=== PATIENT | female | born 1960 | race African-American/Black ===

== ENCOUNTER 2017-12-03 18:35 | Inpatient (IN) | payer MEDICARE, MEDICAID ==
--- NOTE | 2017-12-03 20:50 | RADIOLOGY REPORT (SQ) ---
EXAM DESCRIPTION: CHEST SINGLE VIEW COMPLETED DATE/TIME: 12/03/2017 8:38 pm REASON FOR STUDY: cough COMPARISON: 11/25/2013 EXAM PARAMETERS: NUMBER OF VIEWS: One view. TECHNIQUE: Single frontal radiographic view of the chest acquired. RADIATION DOSE: NA LIMITATIONS: None. FINDINGS: LUNGS AND PLEURA: There is ill-defined opacification in the medial right base. MEDIASTINUM AND HILAR STRUCTURES: No masses. Contour normal. HEART AND VASCULAR STRUCTURES: Heart normal in size. Normal vasculature. BONES: No acute findings. HARDWARE: None in the chest. OTHER: No other significant finding. IMPRESSION: Right lower lobe pneumonia. TECHNICAL DOCUMENTATION: JOB ID: [id number] [employer]- All Rights Reserved Reading location - IP/workstation name: [email or web address]
[2017-12-03 23:13] LABS: ABSOLUTE BASOPHILS # (AUTO) 0.1 10^3/uL (0.0-0.2); ABSOLUTE EOSINOPHILS # (AUTO) 0.2 10^3/uL (0.0-0.6); ABSOLUTE LYMPHOCYTES (AUTO) 2.5 10^3/uL (0.5-4.7); ABSOLUTE MONOCYTES (AUTO) 0.7 10^3/uL (0.1-1.4); ABSOLUTE NEUT (AUTO) 7.8 10^3/uL (1.7-8.2); BASOPHILS % (AUTO) 0.9 % (0-2); EOSINOPHILS % (AUTO) 2.2 % (0-6); HEMATOCRIT 35.3 % (36.0-47.0); HEMOGLOBIN 11.8 g/dL (12.0-15.5); MEAN CORPUSCULAR HEMOGLOBIN 30.1 pg (27.0-33.4); MEAN CORPUSCULAR HGB CONC 33.5 g/dL (32.0-36.0); MEAN CORPUSCULAR VOLUME 90 fl (80-97); MONOCYTES % (AUTO) 5.8 % (3-13); PLATELET COUNT 365 10^3/uL (150-450); RED BLOOD COUNT 3.93 10^6/uL (3.72-5.28); RED CELL DISTRIBUTION WIDTH 12.4 % (11.5-14.0); SEGMENTED NEUTROPHILS % (AUTO) 69.1 % (42-78); TOTAL CELLS COUNTED % (AUTO) 100 %; WHITE BLOOD COUNT 11.2 10^3/uL (4.0-10.5)
[2017-12-03] MEDS ORDERED: CEFTRIAXONE INJ 1000 MG VIAL IV ONE (23:14)
[2017-12-03] MEDS ORDERED: AZITHROMYCIN INJ 500 MG VIAL IV ONE (23:14)
[2017-12-03 23:36] LABS: ANION GAP 7 (5-19); BLOOD UREA NITROGEN 10 mg/dL (7-20); CALCIUM 9.1 mg/dL (8.4-10.2); CARBON DIOXIDE 28 mmol/L (22-30); CHLORIDE 102 mmol/L (98-107); GLUCOSE 249 mg/dL (75-110); POTASSIUM 3.9 mmol/L (3.6-5.0); SODIUM 137.3 mmol/L (137-145)
--- NOTE | 2017-12-03 23:54 | ER Document Report ---
ED General - General Chief Complaint: Painful Cough Stated Complaint: COUGH Time Seen by Provider: 12/03/17 22:11 TRAVEL OUTSIDE OF THE [place] IN LAST 30 DAYS: No - HPI Notes: Patient is a 57-year-old female that presents to the emergency department for chief complaint of cough. Patient presents the emergency room for cough and malaise for the last 2 weeks. She was started on amoxicillin on 11/27 by her primary care provider and states her symptoms have been getting worse. She reports coughing with no sputum production. She denies fevers or chills but generally feels ill. She has been using home albuterol inhaler with temporary symptomatic relief. She denies any nausea, vomiting, abdominal pain, numbness, weakness, chest pain, and headaches. Past Medical History: Hypertension, diabetes, asthma Past Surgical History: Neck surgery, back surgery, partial hysterectomy Social History: Denies drug alcohol and tobacco Family History: Reviewed and noncontributory for presenting illness Allergies: Reviewed, see documented allergy list. REVIEW OF SYSTEMS: CONSTITUTIONAL : No fever No chills No diaphoresis EENT: No vision changes No congestion No sore throat CARDIOVASCULAR: No chest pain No palpitations No shortness of breath RESPIRATORY: shortness of breath cough No difficulty breathing GASTROINTESTINAL: No abdominal pain No nausea No vomiting No diarrhea GENITOURINARY: No dysuria No hematuria No difficulty urinating MUSCULOSKELETAL: No back pain No leg pain No arm pain SKIN: No rashes No lesions LYMPHATIC: No swollen, enlarged glands. NEUROLOGICAL: No lightheadedness No headache No weakness No paresthesias PSYCHIATRIC: No anxiety No depression PHYSICAL EXAMINATION: Vital signs reviewed, nursing noted reviewed. GENERAL: Well-appearing, well-nourished and in no acute distress. HEAD: Atraumatic, normocephalic. EYES: Eyes appear normal, extraocular movements intact, sclera anicteric, conjunctiva are normal. ENT: nares patent, oropharynx clear without exudates. Moist mucous membranes. NECK: Normal range of motion, supple without lymphadenopathy LUNGS: Breath sounds mildly wheezy to auscultation bilaterally and equal. No accessory muscle use HEART: Tachycardic and regular rhythm without murmurs ABDOMEN: Soft, nontender, normoactive bowel sounds. No rebound, guarding, or rigidity. No masses appreciated. EXTREMITIES: Nontender, good range of motion, no pitting or edema. NEUROLOGICAL: No focal neurological deficits. Moves all extremities spontaneously Motor and sensory grossly intact on exam. PSYCH: Normal mood, normal affect. SKIN: Warm, Dry, normal turgor, no rashes or lesions noted on exposed skin - Related Data Allergies/Adverse Reactions: sulfamethoxazole [From Bactrim] Allergy (Verified 12/03/17 18:36) trimethoprim [From Bactrim] Allergy (Verified 12/03/17 18:36) Past Medical History - Social History Smoking Status: Former Smoker Chew tobacco use (# tins/day): No Frequency of alcohol use: Rare Family History: Other - family members have uri Patient has suicidal ideation: No Patient has homicidal ideation: No - Past Medical History Cardiac Medical History: Reports: Hx Hypertension Pulmonary Medical History: Reports: Hx Asthma, Hx Bronchitis Endocrine Medical History: Reports: Hx Diabetes Mellitus Type 1, Hx Diabetes Mellitus Type 2 Renal/ Medical History: Denies: Hx Peritoneal Dialysis GI Medical History: Reports: Hx Irritable Bowel Past Surgical History: Reports: Hx Abdominal Surgery - hiatal hernia repair, Hx Breast Surgery - benign cyst removed right, Hx Gynecologic Surgery - partial hysterectomy, Hx Orthopedic Surgery - lumbar spine x 2, neck surg 06/13, Hx Umbilical Hernia, Hx Urinary Tract Surgery - bladder tach - Immunizations Hx Diphtheria, Pertussis, Tetanus Vaccination: No Review of Systems - Review of Systems Notes: Dictated Physical Exam - Vital signs Vitals: Temp Pulse Resp BP Pulse Ox 98.1 F 112 H 24 H 179/86 H 99 12/03/17 18:39 12/03/17 18:39 12/03/17 18:39 12/03/17 18:39 12/03/17 18:39 - Notes Notes: Dictated Course - Re-evaluation Re-evalutation: 12/03/17 23:53 Vital signs reviewed, nursing notes reviewed. Patient afebrile. She is tachycardic and tachypneic and meeting Sirs criteria. Blood cultures were obtained. Patient given IV antibiotics. Chest x-ray showed pneumonia and she is meeting sepsis criteria. Lactate is normal and she has a stable blood pressure therefore is she is not in severe sepsis or septic shock. She is failing outpatient management and requires admission for IV antibiotics. Case discussed with admitting physician. Patient in agreement with the plan. She was feeling improved at time of admission. Chest X-Ray 12/03/17 00:00 IMPRESSION: Right lower lobe pneumonia. Laboratory 12/03/17 12/03/17 12/03/17 22:54 22:54 22:54 WBC 11.2 H RBC 3.93 Hgb 11.8 L Hct 35.3 L MCV 90 MCH 30.1 MCHC 33.5 RDW 12.4 Plt Count 365 Seg Neutrophils % 69.1 Lymphocytes % 22.0 Monocytes % 5.8 Eosinophils % 2.2 Basophils % 0.9 Absolute Neutrophils 7.8 Absolute Lymphocytes 2.5 Absolute Monocytes 0.7 Absolute Eosinophils 0.2 Absolute Basophils 0.1 Sodium 137.3 Potassium 3.9 Chloride 102 Carbon Dioxide 28 Anion Gap 7 BUN 10 Creatinine 0.69 Est GFR ( Amer) > 60 Est GFR (Non-Af Amer) > 60 Glucose 249 H Lactic Acid 1.2 Calcium 9.1 12/04/17 00:06 - Vital Signs Vital signs: Temp Pulse Resp BP Pulse Ox 98.1 F 112 H 24 H 179/86 H 99 12/03/17 18:39 12/03/17 18:39 12/03/17 18:39 12/03/17 18:39 12/03/17 18:39 - Laboratory Result Diagrams: 12/03/17 22:54 12/03/17 22:54 Laboratory results interpreted by me: 12/03/17 12/03/17 22:54 22:54 WBC 11.2 H Hgb 11.8 L Hct 35.3 L Glucose 249 H Discharge - Discharge Clinical Impression: Pneumonia Qualifiers: Pneumonia type: due to unspecified organism Laterality: right Lung location: lower lobe of lung Qualified Code(s): J18.1 - Lobar pneumonia, unspecified organism Sepsis Qualifiers: Sepsis type: sepsis due to unspecified organism Qualified Code(s): A41.9 - Sepsis, unspecified organism Condition: Stable Disposition: ADMITTED INPATIENT Admitting Provider: [facility] Admitted: Telemetry Referrals: OSVALDO MONZON MD [Primary Care Provider] - Follow up as needed
[2017-12-04] MEDS ORDERED: NORMAL SALINE 1000 ML 1,000 ML IV ONE (00:03)
[2017-12-04] MEDS ORDERED: IPRATROPIUM/ALBUTEROL 0.5-2.5 MG/3 ML AMPUL NEB ONE (00:06)
[2017-12-04] MEDS ORDERED: ACETAMINOPHEN 325 MG TABLET PO ONE (00:58)
[2017-12-04] MEDS ORDERED: DEXTROSE 50%-WATER 25 GM/50 ML DISP.SYRIN IV PRN ×2 (07:39)
[2017-12-04] MEDS ORDERED: GLUCAGON,HUMAN RECOMB 1 MG INJ IM PRN (07:39)
[2017-12-04] MEDS ORDERED: DEXTROSE 40% GEL 15 GM TUBE PO PRN ×2 (07:39)
[2017-12-04] MEDS ORDERED: CEFTRIAXONE 1 GM/D5W RTU 50 ML IV SCH (08:00)
[2017-12-04] MEDS: NORMAL SALINE 1000 ML 1,000 ML IV PRN ×2 (08:03→22:45)
[2017-12-04] MEDS: INSULIN REG, HUMAN 100 UNIT/ML 3 ML VIAL (PYX) SUBCUT PRN ×3 (08:03→21:45)
[2017-12-04] MEDS: AZITHROMYCIN 500 MG in DEXTROSE 5%-WATER 250 ML IV SCH (10:00)
[2017-12-04] MEDS: ENOXAPARIN SODIUM INJ 40 MG/0.4 ML DISP.SYRIN SUBCUT SCH (10:01)
[2017-12-04 10:57] LABS: TROPONIN I < 0.012 ng/mL
[2017-12-04] MEDS: ACETAMINOPHEN 325 MG TABLET PO PRN ×2 (13:33→22:46)
--- NOTE | 2017-12-04 21:02 | PDOC H&P ---
History of Present Illness Admission Date/PCP: 12/04/17 00:17 OSVALDO MONZON MD History of Present Illness: ADELITA BOTELLO is a 57 year old female, she has type 2 diabetes mellitus, I saw her in the office about 2 weeks ago when she came for evaluation of sinus symptoms with cough, malaise facial pain, postnasal drip, she was prescribed amoxicillin with antihistamine. She came to the emergency room for evaluation of continuing cough pleurisy, in the emergency room a chest x-ray was done, it demonstrated opacification in the medial right base consistent with right lower lobe pneumonia. Hospital admission was recommended by the ED doctor for further management of this patient. Past Medical History Cardiac Medical History: Reports: Hypertension Pulmonary Medical History: Reports: Asthma, Bronchitis Endocrine Medical History: Reports: Diabetes Mellitus Type 2 Past Surgical History Past Surgical History: Reports: Orthopedic Surgery - lumbar spine x 2, neck surg 06/13 Social History Smoking Status: Never Smoker Frequency of Alcohol Use: None Hx Recreational Drug Use: No Hx Prescription Drug Abuse: No - Advance Directive Resuscitation Status: Full Code Family History Family History: Other - family members have uri Parental Family History Reviewed: Yes Children Family History Reviewed: Yes Sibling(s) Family History Reviewed.: Yes Medication/Allergy Home Medications: Albuterol Sulfate [Ventolin HFA MDI 18 GM] 2 puff IH Q6HP PRN 12/04/17 Chlorpheniramine Maleate [Chlor-Trimeton 4 mg Tablet] 4 mg PO Q6HP PRN 12/04/17 Exenatide Microspheres [Bydureon Pen] 2 mg SQ FR@1000 12/04/17 Fluticasone Propionate [Flonase Nasal Jadwin 50 Mcg/Jadwin 16 gm] 1 spray NASL DAILYP PRN 12/04/17 Ibuprofen [Motrin 800 mg Tablet] 800 mg PO Q8HP PRN 12/04/17 Insulin Degludec [Tresiba Flextouch U-100] 40 units SQ DAILY 12/04/17 Lisinopril/Hydrochlorothiazide [Lisinopril-Hctz 20-25 mg Tab] 1 tab PO DAILY 10/14 Allergies/Adverse Reactions: sulfamethoxazole [From Bactrim] Allergy (Verified 12/03/17 18:36) trimethoprim [From Bactrim] Allergy (Verified 12/03/17 18:36) Review of Systems Constitutional: ABSENT: chills, fever(s), headache(s), weight gain, weight loss Eyes: ABSENT: visual disturbances Ears: ABSENT: hearing changes Cardiovascular: ABSENT: chest pain, dyspnea on exertion, edema, orthropnea, palpitations Respiratory: PRESENT: cough. ABSENT: hemoptysis Gastrointestinal: ABSENT: abdominal pain, constipation, diarrhea, hematemesis, hematochezia, nausea, vomiting Genitourinary: ABSENT: dysuria, hematuria Musculoskeletal: ABSENT: joint swelling Integumentary: ABSENT: rash, wounds Neurological: ABSENT: abnormal gait, abnormal speech, confusion, dizziness, focal weakness, syncope Psychiatric: ABSENT: anxiety, depression, homidical ideation, suicidal ideation Endocrine: ABSENT: cold intolerance, heat intolerance, menstrual abnormalities, polydipsia, polyuria Hematologic/Lymphatic: ABSENT: easy bleeding, easy bruising, lymphadenopathy Physical Exam Vital Signs: Temp Pulse Resp BP Pulse Ox 98.7 F 103 H 24 H 136/63 H 96 12/04/17 19:13 12/04/17 19:13 12/04/17 19:13 12/04/17 19:13 12/04/17 19:13 Intake & Output 12/03/17 12/04/17 12/05/17 06:59 06:59 06:59 Intake Total 1000 250 Balance 1000 250 General appearance: PRESENT: no acute distress, well-developed, well-nourished Head exam: PRESENT: atraumatic, normocephalic Eye exam: PRESENT: PERRLA Ear exam: PRESENT: normal external ear exam Mouth exam: PRESENT: moist, tongue midline Neck exam: PRESENT: full ROM Respiratory exam: PRESENT: rales Cardiovascular exam: PRESENT: RRR, +S1, +S2 Vascular exam: PRESENT: normal capillary refill GI/Abdominal exam: PRESENT: normal bowel sounds, soft Rectal exam: PRESENT: deferred Neurological exam: PRESENT: alert, awake, oriented to person, oriented to place , oriented to time, oriented to situation, CN II-XII grossly intact Psychiatric exam: PRESENT: appropriate affect, normal mood Skin exam: PRESENT: dry, intact, warm Results Laboratory Results: 12/04/17 12/04/17 09:50 09:50 Creatine Kinase 193 H CK-MB (CK-2) 0.70 Troponin I < 0.012 Impressions: Chest X-Ray 12/03/17 00:00 IMPRESSION: Right lower lobe pneumonia. Assessment & Plan - Diagnosis (1) Right lower lobe pneumonia Qualifiers: Pneumonia type: due to unspecified organism Qualified Code(s): J18.1 - Lobar pneumonia, unspecified organism Is this a current diagnosis for this admission?: Yes Plan: Patient is admitted for the management of pneumonia, she will be treated with antibiotic to cover community-acquired pathogens (2) Diabetes mellitus type 2 in obese Is this a current diagnosis for this admission?: Yes
[2017-12-04 21:58] LABS: APPEARANCE,URINE SLIGHTLY-CLOUDY; BILIRUBIN,URINE NEGATIVE (NEGATIVE); COLOR,URINE YELLOW; GLUCOSE, URINE >=500 mg/dL (NEGATIVE); KETONES,URINE TRACE mg/dL (NEGATIVE); LEUKOCYTE ESTERASE,URINE NEGATIVE (NEGATIVE); NITRITE,URINE NEGATIVE (NEGATIVE); PROTEIN,URINE NEGATIVE (NEGATIVE); URINE SPECIFIC GRAVITY 1.016; UROBILINOGEN,URINE NEGATIVE mg/dL (<2.0)
[2017-12-04] MEDS: CEFTRIAXONE SODIUM 1,000 MG in NORMAL SALINE 50 ML IV SCH (22:44)
[2017-12-05 05:21] LABS: ABSOLUTE BASOPHILS # (AUTO) 0.1 10^3/uL (0.0-0.2); ABSOLUTE EOSINOPHILS # (AUTO) 0.2 10^3/uL (0.0-0.6); ABSOLUTE MONOCYTES (AUTO) 0.7 10^3/uL (0.1-1.4); ABSOLUTE NEUT (AUTO) 5.6 10^3/uL (1.7-8.2); BASOPHILS % (AUTO) 0.8 % (0-2); EOSINOPHILS % (AUTO) 2.9 % (0-6); HEMATOCRIT 31.4 % (36.0-47.0); HEMOGLOBIN 10.6 g/dL (12.0-15.5); LYMPHOCYTES % (AUTO) 23.5 % (13-45); MEAN CORPUSCULAR HEMOGLOBIN 30.4 pg (27.0-33.4); MEAN CORPUSCULAR HGB CONC 33.7 g/dL (32.0-36.0); MEAN CORPUSCULAR VOLUME 90 fl (80-97); MONOCYTES % (AUTO) 7.8 % (3-13); PLATELET COUNT 319 10^3/uL (150-450); RED BLOOD COUNT 3.48 10^6/uL (3.72-5.28); RED CELL DISTRIBUTION WIDTH 12.1 % (11.5-14.0); TOTAL CELLS COUNTED % (AUTO) 100 %; WHITE BLOOD COUNT 8.6 10^3/uL (4.0-10.5)
[2017-12-05 05:47] LABS: ALANINE AMINOTRANSFERASE 27 U/L (9-52); ALKALINE PHOSPHATASE 70 U/L (38-126); ANION GAP 8 (5-19); ASPARTATE AMINO TRANSFERASE 12 U/L (14-36); BILIRUBIN,DIRECT 0.2 mg/dL (0.0-0.4); BILIRUBIN,TOTAL 0.5 mg/dL (0.2-1.3); BLOOD UREA NITROGEN 8 mg/dL (7-20); CALCIUM 8.7 mg/dL (8.4-10.2); CARBON DIOXIDE 26 mmol/L (22-30); CHLORIDE 106 mmol/L (98-107); GLUCOSE 201 mg/dL (75-110); POTASSIUM 3.9 mmol/L (3.6-5.0); SODIUM 139.9 mmol/L (137-145); TOTAL PROTEIN 6.1 g/dL (6.3-8.2)
[2017-12-05] MEDS: INSULIN REG, HUMAN 100 UNIT/ML 3 ML VIAL (PYX) SUBCUT PRN ×3 (09:27→21:53)
[2017-12-05] MEDS: AZITHROMYCIN 500 MG in DEXTROSE 5%-WATER 250 ML IV SCH (10:03)
[2017-12-05] MEDS: ENOXAPARIN SODIUM INJ 40 MG/0.4 ML DISP.SYRIN SUBCUT SCH (10:12)
[2017-12-05] MEDS: BUTALB/ACETAMINOPHEN/CAFFEINE 1 TAB EACH PO PRN ×2 (12:30→21:38)
[2017-12-05] MEDS ORDERED: ALBUTEROL SULFATE HFA (90 MCG/PUFF) 8 GM MDI (1 MDI/ER DISP) IH PRN (12:44)
[2017-12-05] MEDS ORDERED: CHLORPHENIRAMINE MALEATE 4 MG TABLET PO PRN (12:44)
[2017-12-05] MEDS ORDERED: (PENDING PHARMACY ID) (Lisinopril/Hydrochlorothiazide [Lisinopril-Hctz 20-25 Mg Tab] 1 TAB PO SCH (12:45)
[2017-12-05] MEDS ORDERED: INSULIN DEGLUDEC 40 UNIT SQ SCH ×2 (12:45→15:15)
--- NOTE | 2017-12-05 13:05 | PDOC PROGRESS REPORT ---
Subjective Progress Note for:: 12/05/17 Subjective:: Patient was seen by the bedside, she was admitted for the management of right lower lobe pneumonia, presently on IV antibiotic she has lymphedema on the left upper arm, this was a complication from cervical laminectomy that was done years ago, she uses sleeve compression stocking Reason For Visit: PNEUMONIA,T2DM Physical Exam Vital Signs: Temp Pulse Resp BP Pulse Ox 98.7 F 100 18 140/82 H 92 12/05/17 11:08 12/05/17 11:08 12/05/17 11:08 12/05/17 11:08 12/05/17 11:08 Intake & Output 12/04/17 12/05/17 12/06/17 06:59 06:59 06:59 Intake Total 1000 1300 250 Output Total 525 Balance 1000 775 250 Weight 92.4 kg General appearance: PRESENT: no acute distress Eye exam: PRESENT: PERRLA Respiratory exam: PRESENT: rales Cardiovascular exam: PRESENT: +S1, +S2 GI/Abdominal exam: PRESENT: soft Neurological exam: PRESENT: alert Results Laboratory Results: 12/05/17 04:27 12/05/17 04:27 12/04/17 12/05/17 12/05/17 21:35 04:27 04:27 WBC 8.6 RBC 3.48 L Hgb 10.6 L Hct 31.4 L MCV 90 MCH 30.4 MCHC 33.7 RDW 12.1 Plt Count 319 Seg Neutrophils % 65.0 Lymphocytes % 23.5 Monocytes % 7.8 Eosinophils % 2.9 Basophils % 0.8 Absolute Neutrophils 5.6 Absolute Lymphocytes 2.0 Absolute Monocytes 0.7 Absolute Eosinophils 0.2 Absolute Basophils 0.1 Sodium 139.9 Potassium 3.9 Chloride 106 Carbon Dioxide 26 Anion Gap 8 BUN 8 Creatinine 0.67 Est GFR ( Amer) > 60 Est GFR (Non-Af Amer) > 60 Glucose 201 H Calcium 8.7 Total Bilirubin 0.5 AST 12 L ALT 27 Alkaline Phosphatase 70 Total Protein 6.1 L Albumin 3.0 L Urine Color YELLOW Urine Appearance SLIGHTLY-CLOUDY Urine pH 6.0 Ur Specific [place] 1.016 Urine Protein NEGATIVE Urine Glucose (UA) >=500 H Urine Ketones TRACE H Urine Blood NEGATIVE Urine Nitrite NEGATIVE Ur Leukocyte Esterase NEGATIVE Urine WBC (Auto) 0 Urine RBC (Auto) 1 12/04/17 12/04/17 09:50 09:50 Creatine Kinase 193 H CK-MB (CK-2) 0.70 Troponin I < 0.012 Impressions: Chest X-Ray 12/03/17 00:00 IMPRESSION: Right lower lobe pneumonia. Assessment & Plan - Diagnosis (1) Right lower lobe pneumonia Qualifiers: Pneumonia type: due to unspecified organism Qualified Code(s): J18.1 - Lobar pneumonia, unspecified organism Is this a current diagnosis for this admission?: Yes Plan: Continue IV antibiotic, patient is responding to treatment (2) Diabetes mellitus type 2 in obese Is this a current diagnosis for this admission?: Yes (3) Lymphedema Is this a current diagnosis for this admission?: Yes
[2017-12-05] MEDS ORDERED: ALBUTEROL SULFATE HFA (90 MCG/PUFF) 200 PUFF/8.5 GM MDI IH PRN (15:00)
[2017-12-05] MEDS ORDERED: (PENDING PHARMACY ID) (Exenatide Microspheres [Bydureon Pen] 2 MG) SQ SCH (15:15)
[2017-12-05] MEDS: CEFTRIAXONE SODIUM 1,000 MG in NORMAL SALINE 50 ML IV SCH (21:38)
[2017-12-06] MEDS: NORMAL SALINE 1000 ML 1,000 ML IV PRN (01:13)
[2017-12-06] MEDS: BUTALB/ACETAMINOPHEN/CAFFEINE 1 TAB EACH PO PRN ×2 (03:24→11:01)
[2017-12-06 04:34] LABS: ABSOLUTE BASOPHILS # (AUTO) 0.1 10^3/uL (0.0-0.2); ABSOLUTE EOSINOPHILS # (AUTO) 0.2 10^3/uL (0.0-0.6); ABSOLUTE LYMPHOCYTES (AUTO) 1.9 10^3/uL (0.5-4.7); ABSOLUTE MONOCYTES (AUTO) 0.8 10^3/uL (0.1-1.4); ABSOLUTE NEUT (AUTO) 6.6 10^3/uL (1.7-8.2); BASOPHILS % (AUTO) 0.6 % (0-2); EOSINOPHILS % (AUTO) 2.5 % (0-6); HEMATOCRIT 30.1 % (36.0-47.0); HEMOGLOBIN 10.4 g/dL (12.0-15.5); LYMPHOCYTES % (AUTO) 20.2 % (13-45); MEAN CORPUSCULAR HEMOGLOBIN 30.9 pg (27.0-33.4); MEAN CORPUSCULAR HGB CONC 34.5 g/dL (32.0-36.0); MEAN CORPUSCULAR VOLUME 90 fl (80-97); MONOCYTES % (AUTO) 8.1 % (3-13); PLATELET COUNT 315 10^3/uL (150-450); RED BLOOD COUNT 3.36 10^6/uL (3.72-5.28); RED CELL DISTRIBUTION WIDTH 12.3 % (11.5-14.0); SEGMENTED NEUTROPHILS % (AUTO) 68.6 % (42-78); TOTAL CELLS COUNTED % (AUTO) 100 %; WHITE BLOOD COUNT 9.6 10^3/uL (4.0-10.5)
[2017-12-06 04:56] LABS: ALANINE AMINOTRANSFERASE 24 U/L (9-52); ALBUMIN 3.1 g/dL (3.5-5.0); ALKALINE PHOSPHATASE 72 U/L (38-126); ANION GAP 7 (5-19); ASPARTATE AMINO TRANSFERASE 11 U/L (14-36); BILIRUBIN,DIRECT 0.2 mg/dL (0.0-0.4); BILIRUBIN,TOTAL 0.4 mg/dL (0.2-1.3); BLOOD UREA NITROGEN 6 mg/dL (7-20); CALCIUM 8.8 mg/dL (8.4-10.2); CARBON DIOXIDE 27 mmol/L (22-30); CHLORIDE 106 mmol/L (98-107); GLUCOSE 172 mg/dL (75-110); POTASSIUM 3.9 mmol/L (3.6-5.0); SODIUM 139.9 mmol/L (137-145); TOTAL PROTEIN 6.1 g/dL (6.3-8.2)
[2017-12-06] MEDS: INSULIN REG, HUMAN 100 UNIT/ML 3 ML VIAL (PYX) SUBCUT PRN ×3 (08:44→21:33)
[2017-12-06] MEDS: LISINOPRIL 10 MG TABLET PO SCH (09:51)
[2017-12-06] MEDS: HYDROCHLOROTHIAZIDE 25 MG TABLET PO SCH (09:51)
[2017-12-06] MEDS: AZITHROMYCIN 500 MG in DEXTROSE 5%-WATER 250 ML IV SCH (10:01)
[2017-12-06] MEDS: ENOXAPARIN SODIUM INJ 40 MG/0.4 ML DISP.SYRIN SUBCUT SCH (10:02)
--- NOTE | 2017-12-06 13:51 | PDOC PROGRESS REPORT ---
Subjective Progress Note for:: 12/06/17 Subjective:: She was seen by the bedside, complaint of constipation, the nurse stated that the IV azithromycin causes discomfort when administered, this would be changed to p.o. Reason For Visit: PNEUMONIA,T2DM Physical Exam Vital Signs: Temp Pulse Resp BP Pulse Ox 98.4 F 100 16 125/73 96 12/06/17 11:32 12/06/17 11:32 12/06/17 11:32 12/06/17 11:32 12/06/17 11:32 Intake & Output 12/05/17 12/06/17 12/07/17 06:59 06:59 06:59 Intake Total 1300 2275 250 Output Total 525 300 Balance 775 1975 250 Weight 92.4 kg 89.7 kg General appearance: PRESENT: no acute distress Eye exam: PRESENT: PERRLA Respiratory exam: PRESENT: clear to auscultation soraya Cardiovascular exam: PRESENT: +S1, +S2 Neurological exam: PRESENT: alert Results Laboratory Results: 12/06/17 04:08 12/06/17 04:08 12/06/17 12/06/17 04:08 04:08 WBC 9.6 RBC 3.36 L Hgb 10.4 L Hct 30.1 L MCV 90 MCH 30.9 MCHC 34.5 RDW 12.3 Plt Count 315 Seg Neutrophils % 68.6 Lymphocytes % 20.2 Monocytes % 8.1 Eosinophils % 2.5 Basophils % 0.6 Absolute Neutrophils 6.6 Absolute Lymphocytes 1.9 Absolute Monocytes 0.8 Absolute Eosinophils 0.2 Absolute Basophils 0.1 Sodium 139.9 Potassium 3.9 Chloride 106 Carbon Dioxide 27 Anion Gap 7 BUN 6 L Creatinine 0.67 Est GFR ( Amer) > 60 Est GFR (Non-Af Amer) > 60 Glucose 172 H Calcium 8.8 Total Bilirubin 0.4 AST 11 L ALT 24 Alkaline Phosphatase 72 Total Protein 6.1 L Albumin 3.1 L 12/04/17 12/04/17 09:50 09:50 Creatine Kinase 193 H CK-MB (CK-2) 0.70 Troponin I < 0.012 Impressions: Chest X-Ray 12/03/17 00:00 IMPRESSION: Right lower lobe pneumonia. Assessment & Plan - Diagnosis (1) Right lower lobe pneumonia Qualifiers: Pneumonia type: due to unspecified organism Qualified Code(s): J18.1 - Lobar pneumonia, unspecified organism Is this a current diagnosis for this admission?: Yes Plan: Discontinue IV azithromycin start p.o. (2) Diabetes mellitus type 2 in obese Is this a current diagnosis for this admission?: Yes (3) Lymphedema Is this a current diagnosis for this admission?: Yes (4) Constipation Qualifiers: Constipation type: other constipation type Qualified Code(s): K59.09 - Other constipation Is this a current diagnosis for this admission?: Yes Plan: Give Dulcolax 20 mg p.o. 1 dose
--- NOTE | 2017-12-06 13:58 | PDOC DISCHARGE SUMMARY ---
General - Admit/Disc Date/PCP Admission Date/Primary Care Provider: 12/04/17 00:17 OSVALDO MONZON MD Discharge Date: 12/07/17 - Discharge Diagnosis (1) Right lower lobe pneumonia Is this a current diagnosis for this admission?: Yes (2) Diabetes mellitus type 2 in obese Is this a current diagnosis for this admission?: Yes (3) Lymphedema Is this a current diagnosis for this admission?: Yes (4) Constipation Is this a current diagnosis for this admission?: Yes - Additional Information Resuscitation Status: Full Code Prescriptions: Azithromycin [Zithromax 250 mg Tablet] 500 mg PO DAILY #10 tablet Sitagliptin Phos/Metformin HCl [Janumet Xr 100-1,000 mg Tablet] 1 each PO DAILY #90 tbmp.24hr Home Medications: Albuterol Sulfate [Ventolin HFA MDI 18 GM] 2 puff IH Q6HP PRN 12/04/17 Chlorpheniramine Maleate [Chlor-Trimeton 4 mg Tablet] 4 mg PO Q6HP PRN 12/04/17 Exenatide Microspheres [Bydureon Pen] 2 mg SQ FR@1000 12/04/17 Insulin Degludec [Tresiba Flextouch U-100] 40 units SQ DAILY 12/04/17 Lisinopril/Hydrochlorothiazide [Lisinopril-Hctz 20-25 mg Tab] 1 tab PO DAILY 10/14 Azithromycin [Zithromax 250 mg Tablet] 500 mg PO DAILY #10 tablet 12/06/17 Sitagliptin Phos/Metformin HCl [Janumet Xr 100-1,000 mg Tablet] 1 each PO DAILY #90 tbmp.24hr 12/06/17 History of Present Illness History of Present Illness: ADELITA BOTELLO is a 57 year old female, she has type 2 diabetes mellitus, I saw her in the office about 2 weeks ago when she came for evaluation of sinus symptoms with cough, malaise facial pain, postnasal drip, she was prescribed amoxicillin with antihistamine. She came to the emergency room for evaluation of continuing cough pleurisy, in the emergency room a chest x-ray was done, it demonstrated opacification in the medial right base consistent with right lower lobe pneumonia. Hospital admission was recommended by the ED doctor for further management of this patient. Hospital Course Hospital Course: She was admitted for the management of right lower lobe pneumonia, she was treated with IV antibiotic, azithromycin and Rocephin to cover community- acquired pathogens. She complained of constipation, this was treated with a single dose of Dulcolax 20 mg. The diabetes was not well controlled, presently on tresiba and bydureon, she started on Janumet XR. Physical Exam Vital Signs: Temp Pulse Resp BP Pulse Ox 98.4 F 100 16 125/73 96 12/06/17 11:32 12/06/17 11:32 12/06/17 11:32 12/06/17 11:32 12/06/17 11:32 Intake & Output 12/05/17 12/06/17 12/07/17 06:59 06:59 06:59 Intake Total 1300 2275 250 Output Total 525 300 Balance 775 1975 250 Weight 92.4 kg 89.7 kg General appearance: PRESENT: no acute distress, well-developed, well-nourished Head exam: PRESENT: atraumatic, normocephalic Eye exam: PRESENT: conjunctiva pink, EOMI, PERRLA Ear exam: PRESENT: normal external ear exam Mouth exam: PRESENT: moist, tongue midline Neck exam: PRESENT: full ROM Respiratory exam: PRESENT: clear to auscultation soraya Cardiovascular exam: PRESENT: RRR, +S1, +S2 Pulses: PRESENT: normal dorsalis pedis pul, +2 pedal pulses bilateral Vascular exam: PRESENT: normal capillary refill GI/Abdominal exam: PRESENT: normal bowel sounds, soft Rectal exam: PRESENT: deferred Neurological exam: PRESENT: alert, awake, oriented to person, oriented to place , oriented to time, oriented to situation, CN II-XII grossly intact Psychiatric exam: PRESENT: appropriate affect, normal mood Skin exam: PRESENT: dry, intact, warm Results Laboratory Results: 12/06/17 04:08 12/06/17 04:08 12/06/17 12/06/17 04:08 04:08 WBC 9.6 RBC 3.36 L Hgb 10.4 L Hct 30.1 L MCV 90 MCH 30.9 MCHC 34.5 RDW 12.3 Plt Count 315 Seg Neutrophils % 68.6 Lymphocytes % 20.2 Monocytes % 8.1 Eosinophils % 2.5 Basophils % 0.6 Absolute Neutrophils 6.6 Absolute Lymphocytes 1.9 Absolute Monocytes 0.8 Absolute Eosinophils 0.2 Absolute Basophils 0.1 Sodium 139.9 Potassium 3.9 Chloride 106 Carbon Dioxide 27 Anion Gap 7 BUN 6 L Creatinine 0.67 Est GFR ( Amer) > 60 Est GFR (Non-Af Amer) > 60 Glucose 172 H Calcium 8.8 Total Bilirubin 0.4 AST 11 L ALT 24 Alkaline Phosphatase 72 Total Protein 6.1 L Albumin 3.1 L 12/04/17 12/04/17 09:50 09:50 Creatine Kinase 193 H CK-MB (CK-2) 0.70 Troponin I < 0.012 Impressions: Chest X-Ray 12/03/17 00:00 IMPRESSION: Right lower lobe pneumonia. Qualifiers - * PATIENT BEING DISCHARGED WITH ANY OF THE FOLLOWING DIAGNOSIS: No
[2017-12-06] MEDS ORDERED: AZITHROMYCIN 250 MG TABLET PO SCH (14:00)
[2017-12-06] MEDS ORDERED: BISACODYL 5 MG TABEC PO ONE (16:00)
[2017-12-06] MEDS: CEFTRIAXONE SODIUM 1,000 MG in NORMAL SALINE 50 ML IV SCH (21:11)
[2017-12-07 04:40] LABS: ABSOLUTE BASOPHILS # (AUTO) 0.1 10^3/uL (0.0-0.2); ABSOLUTE EOSINOPHILS # (AUTO) 0.1 10^3/uL (0.0-0.6); ABSOLUTE LYMPHOCYTES (AUTO) 1.7 10^3/uL (0.5-4.7); ABSOLUTE MONOCYTES (AUTO) 0.7 10^3/uL (0.1-1.4); ABSOLUTE NEUT (AUTO) 7.4 10^3/uL (1.7-8.2); BASOPHILS % (AUTO) 0.8 % (0-2); EOSINOPHILS % (AUTO) 1.3 % (0-6); HEMATOCRIT 30.9 % (36.0-47.0); HEMOGLOBIN 10.5 g/dL (12.0-15.5); LYMPHOCYTES % (AUTO) 17.5 % (13-45); MEAN CORPUSCULAR HEMOGLOBIN 30.6 pg (27.0-33.4); MEAN CORPUSCULAR HGB CONC 34.1 g/dL (32.0-36.0); MEAN CORPUSCULAR VOLUME 90 fl (80-97); MONOCYTES % (AUTO) 6.6 % (3-13); PLATELET COUNT 331 10^3/uL (150-450); RED BLOOD COUNT 3.44 10^6/uL (3.72-5.28); RED CELL DISTRIBUTION WIDTH 12.1 % (11.5-14.0); SEGMENTED NEUTROPHILS % (AUTO) 73.8 % (42-78); TOTAL CELLS COUNTED % (AUTO) 100 %
[2017-12-07 05:29] LABS: ALANINE AMINOTRANSFERASE 21 U/L (9-52); ALBUMIN 3.3 g/dL (3.5-5.0); ALKALINE PHOSPHATASE 77 U/L (38-126); ANION GAP 11 (5-19); ASPARTATE AMINO TRANSFERASE 12 U/L (14-36); BILIRUBIN,DIRECT 0.3 mg/dL (0.0-0.4); BILIRUBIN,TOTAL 0.4 mg/dL (0.2-1.3); BLOOD UREA NITROGEN 8 mg/dL (7-20); CALCIUM 9.1 mg/dL (8.4-10.2); CARBON DIOXIDE 25 mmol/L (22-30); CHLORIDE 101 mmol/L (98-107); GLUCOSE 265 mg/dL (75-110); SODIUM 136.6 mmol/L (137-145); TOTAL PROTEIN 6.4 g/dL (6.3-8.2)
[2017-12-07] MEDS: INSULIN REG, HUMAN 100 UNIT/ML 3 ML VIAL (PYX) SUBCUT PRN (08:38)
[2017-12-07] MEDS: HYDROCHLOROTHIAZIDE 25 MG TABLET PO SCH (09:21)
[2017-12-07] MEDS: ENOXAPARIN SODIUM INJ 40 MG/0.4 ML DISP.SYRIN SUBCUT SCH (09:22)
[2017-12-07] MEDS: LISINOPRIL 10 MG TABLET PO SCH (09:22)
[2017-12-07 09:30] VITALS: BP 140/85
[2017-12-07] MEDS ORDERED: AZITHROMYCIN 250 MG TABLET PO SCH (10:00)
[2017-12-11] MEDS ORDERED: (PENDING PHARMACY ID) (Exenatide Microspheres [Bydureon Pen] 2 MG) SQ SCH (10:00)
== END 2017-12-07 09:59 | disposition home or self-care (01) | DRG 194 ==
LOC: ER 18:35 → EH 12-04 00:17 → 3N 12-04 18:25
PROVIDERS: ADMIT Internal Medicine; ATTEND Internal Medicine
DX: J18.9 Pneumonia, unspecified organism (principal); E66.2 Morbid (severe) obesity with alveolar hypoventilation; E11.9 Type 2 diabetes mellitus without complications; I89.0 Lymphedema, not elsewhere classified; K59.00 Constipation, unspecified; K59.09 Other constipation; I10 Essential (primary) hypertension; J45.909 Unspecified asthma, uncomplicated; Z79.4 Long term (current) use of insulin; Z79.51 Long term (current) use of inhaled steroids; Z88.2 Allergy status to sulfonamides; Z88.8 Allergy status to other drugs, medicaments and biological substances; Z87.891 Personal history of nicotine dependence
CPT/HCPCS: 36415; 71045; 80048; 80053; 81001; 82550; 82553; 82962; 83036; 83605; 84484; 85025; 87040; 94640; 96365; 96368; 99284; J0456; J0696; J1650; J1815; J3490; J7030; J7060; J7620

== ENCOUNTER 2017-12-18 15:46 | Inpatient (IN) | payer MEDICARE, MEDICAID ==
[2017-12-18] MEDS ORDERED: NORMAL SALINE 1000 ML 1,000 ML IV PRN (18:21)
[2017-12-18 18:30] LABS: ABSOLUTE BASOPHILS # (AUTO) 0.1 10^3/uL (0.0-0.2); ABSOLUTE EOSINOPHILS # (AUTO) 0.1 10^3/uL (0.0-0.6); ABSOLUTE LYMPHOCYTES (AUTO) 2.3 10^3/uL (0.5-4.7); ABSOLUTE NEUT (AUTO) 12.8 10^3/uL (1.7-8.2); BASOPHILS % (AUTO) 0.7 % (0-2); EOSINOPHILS % (AUTO) 0.8 % (0-6); HEMOGLOBIN 8.8 g/dL (12.0-15.5); LYMPHOCYTES % (AUTO) 14.2 % (13-45); MEAN CORPUSCULAR HEMOGLOBIN 29.8 pg (27.0-33.4); MEAN CORPUSCULAR HGB CONC 33.8 g/dL (32.0-36.0); MEAN CORPUSCULAR VOLUME 88 fl (80-97); MONOCYTES % (AUTO) 6.3 % (3-13); PLATELET COUNT 680 10^3/uL (150-450); RED BLOOD COUNT 2.95 10^6/uL (3.72-5.28); RED CELL DISTRIBUTION WIDTH 12.8 % (11.5-14.0); TOTAL CELLS COUNTED % (AUTO) 100 %; WHITE BLOOD COUNT 16.4 10^3/uL (4.0-10.5)
[2017-12-18 18:50] LABS: ALANINE AMINOTRANSFERASE 28 U/L (9-52); ALBUMIN 3.4 g/dL (3.5-5.0); ALKALINE PHOSPHATASE 163 U/L (38-126); ANION GAP 8 (5-19); ASPARTATE AMINO TRANSFERASE 20 U/L (14-36); BILIRUBIN,DIRECT 0.6 mg/dL (0.0-0.4); BILIRUBIN,TOTAL 0.8 mg/dL (0.2-1.3); BLOOD UREA NITROGEN 9 mg/dL (7-20); CARBON DIOXIDE 28 mmol/L (22-30); CHLORIDE 100 mmol/L (98-107); GLUCOSE 271 mg/dL (75-110); POTASSIUM 4.8 mmol/L (3.6-5.0); SODIUM 136.3 mmol/L (137-145); TOTAL PROTEIN 7.3 g/dL (6.3-8.2)
--- NOTE | 2017-12-18 19:18 | RADIOLOGY REPORT (SQ) ---
EXAM DESCRIPTION: CT CHEST WITHOUT COMPLETED DATE/TIME: 12/18/2017 6:51 pm REASON FOR STUDY: recurrent pneumonia COMPARISON: None. TECHNIQUE: CT scan performed of the chest without intravenous contrast. Images reviewed with lung, soft tissue and bone windows. Reconstructed coronal and sagittal MPR images reviewed. All images st ored on PACS. All CT scanners at this facility use dose modulation, iterative reconstruction, and/or weight based d osing when appropriate to reduce radiation dose to as low as reasonably achievable (ALARA). [facility]: Dose Right [facility]: CareDose [facility]: Dose Right [facility]: Teradose 4D [facility]: [employer] RADIATION DOSE: CT Rad equipment meets quality standard of care and radiation dose reduction techniq ues were employed. CTDIvol: 17.4 mGy. DLP: 663 mGy-cm. mGy. LIMITATIONS: No technical limitations. FINDINGS: LUNGS AND PLEURA: No pneumothorax. Multifocal dense consolidation and nodularity in the r ight lower lobe. No pleural effusions. HILAR AND MEDIASTINAL STRUCTURES: Multiple abnormal nodes. No obvious aneurysm. HEART AND VASCULAR STRUCTURES: No aneurysm. No pericardial effusion. UPPER ABDOMEN: No significant findings. Limited exam. THYROID AND OTHER SOFT TISSUES: No masses. No adenopathy. BONES: No significant finding. HARDWARE: None in the chest. OTHER: No other significant findings. IMPRESSION: Multifocal dense consolidation and nodularity in the right lower lobe. Mediastinal and hilar lymphadenopathy. Consider pulmonary consultation. TECHNICAL DOCUMENTATION: JOB ID: [id number] Quality ID # [id number]: Final reports with documentation of one or more dose reduction techniques (e.g., Au tomated exposure control, adjustment of the mA and/or kV according to patient size, use of iterative reconstruction technique) 2010 [employer]- All Rights Reserved Reading location - IP/workstation name: [email or web address]
[2017-12-18] MEDS ORDERED: DEXTROSE 40% GEL 15 GM TUBE X 2 PO PRN (20:01)
[2017-12-18] MEDS ORDERED: DEXTROSE 40% GEL 15 GM TUBE PO PRN (20:01)
[2017-12-18] MEDS ORDERED: GLUCAGON,HUMAN RECOMB 1 MG INJ IM PRN (20:01)
[2017-12-18] MEDS ORDERED: DEXTROSE 50%-WATER SYRINGE 25 GM/50 ML DOSE IV PRN (20:01)
[2017-12-18] MEDS ORDERED: DEXTROSE 50%-WATER SYRINGE 12.5 GM/25 ML DOSE IV PRN (20:01)
[2017-12-18] MEDS: ACETAMINOPHEN 325 MG TABLET PO PRN (21:08)
[2017-12-18] MEDS: LANSOPRAZOLE 30 MG TAB.RAP.DR PO SCH ×2 (21:08→21:10)
[2017-12-18] MEDS: INSULIN LISPRO 100 UNIT/ML 3 ML VIAL SUBCUT PRN (21:14)
[2017-12-18] MEDS ORDERED: VANCOMYCIN HCL 0 MG in DEXTROSE 5%-WATER 250 ML IV NR (21:30)
[2017-12-18] MEDS: NORMAL SALINE 1000 ML 1,000 ML IV PRN (22:39)
[2017-12-18] MEDS: CEFTRIAXONE SODIUM 1,000 MG in NORMAL SALINE 50 ML IV SCH (22:40)
[2017-12-18] MEDS: LEVOFLOXACIN 750 MG/D5W RTU 750 MG/150 ML RTUPB IV SCH (22:41)
[2017-12-18] MEDS: VANCOMYCIN HCL 1,000 MG in DEXTROSE 5%-WATER 250 ML IV SCH (22:41)
[2017-12-19] MEDS: LANSOPRAZOLE 30 MG TAB.RAP.DR PO SCH (05:24)
[2017-12-19] MEDS: INSULIN LISPRO 100 UNIT/ML 3 ML VIAL SUBCUT PRN ×3 (09:47→21:49)
[2017-12-19] MEDS: BENZONATATE 100 MG CAPSULE PO PRN ×2 (09:47→17:31)
[2017-12-19] MEDS: VANCOMYCIN HCL 1,000 MG in DEXTROSE 5%-WATER 250 ML IV SCH ×2 (09:48→21:42)
[2017-12-19 14:49] LABS: ABSOLUTE BASOPHILS # (AUTO) 0.1 10^3/uL (0.0-0.2); ABSOLUTE EOSINOPHILS # (AUTO) 0.2 10^3/uL (0.0-0.6); ABSOLUTE LYMPHOCYTES (AUTO) 2.4 10^3/uL (0.5-4.7); ABSOLUTE MONOCYTES (AUTO) 1.1 10^3/uL (0.1-1.4); ABSOLUTE NEUT (AUTO) 11.4 10^3/uL (1.7-8.2); BASOPHILS % (AUTO) 0.3 % (0-2); EOSINOPHILS % (AUTO) 1.3 % (0-6); HEMOGLOBIN 8.5 g/dL (12.0-15.5); LYMPHOCYTES % (AUTO) 15.8 % (13-45); MEAN CORPUSCULAR HEMOGLOBIN 30.1 pg (27.0-33.4); MEAN CORPUSCULAR HGB CONC 34.2 g/dL (32.0-36.0); MEAN CORPUSCULAR VOLUME 88 fl (80-97); MONOCYTES % (AUTO) 7.1 % (3-13); PLATELET COUNT 645 10^3/uL (150-450); RED BLOOD COUNT 2.83 10^6/uL (3.72-5.28); RED CELL DISTRIBUTION WIDTH 12.4 % (11.5-14.0); SEGMENTED NEUTROPHILS % (AUTO) 75.5 % (42-78); TOTAL CELLS COUNTED % (AUTO) 100 %; WHITE BLOOD COUNT 15.1 10^3/uL (4.0-10.5)
[2017-12-19 15:05] LABS: ALANINE AMINOTRANSFERASE 31 U/L (9-52); ALBUMIN 3.3 g/dL (3.5-5.0); ALKALINE PHOSPHATASE 165 U/L (38-126); ANION GAP 10 (5-19); ASPARTATE AMINO TRANSFERASE 17 U/L (14-36); BILIRUBIN,DIRECT 0.3 mg/dL (0.0-0.4); BILIRUBIN,TOTAL 0.5 mg/dL (0.2-1.3); BLOOD UREA NITROGEN 6 mg/dL (7-20); CALCIUM 9.1 mg/dL (8.4-10.2); CARBON DIOXIDE 27 mmol/L (22-30); CHLORIDE 103 mmol/L (98-107); GLUCOSE 112 mg/dL (75-110); POTASSIUM 4.4 mmol/L (3.6-5.0); SODIUM 139.5 mmol/L (137-145); TOTAL PROTEIN 7.2 g/dL (6.3-8.2)
--- NOTE | 2017-12-19 16:54 | PDOC H&P ---
History of Present Illness Admission Date/PCP: 12/18/17 15:46 OSVALDO MONZON MD History of Present Illness: ADELITA BOTELLO is a 57 year old female, She came to the office for hospital follow-up evaluation, she was just discharged from [facility] on 12/14/2017 after admission for 3 days for the management of sepsis due to pneumonia. In the office when she came for follow-up evaluation, she was malaise, she felt very sick, she had a fever with temperature 101, the pulse was 115 because of all this constellation of symptoms and signs she was admitted directly from the office to the hospital for further evaluation. She was initially admitted at [facility] on 12/04/2017 for the management of right lower lobe pneumonia. She was treated with intravenous Rocephin and azithromycin for community-acquired pneumonia she continued to feel sick after discharge from [facility] on 12/07/2017 she returned to the emergency room on 12/10/2017 with sepsis syndrome including leukocytosis, WBC 20,000 tachycardia fever. She was admitted at [place] for right lower lobe pneumonia she was treated with IV vancomycin and cefepime, Legionella and Streptococcus pneumonia urine antigen was negative blood culture negative the antibiotic was the descalated to moxifloxacin.CT chest without contrast was done on this admission, he demonstrated multifocal consolidation and nodularity in the right lower lobe. mediastinal and hilar adenopathy. No specific pathogen was isolated, in the sputum, blood Past Medical History Cardiac Medical History: Reports: Hypertension Pulmonary Medical History: Reports: Asthma, Bronchitis Endocrine Medical History: Reports: Diabetes Mellitus Type 2 Past Surgical History Past Surgical History: Reports: Orthopedic Surgery - lumbar spine x 2, neck surg 06/13 Social History Smoking Status: Former Smoker Last Time Smoked: 1989 Frequency of Alcohol Use: Occasional Hx Recreational Drug Use: No Drugs: None Hx Prescription Drug Abuse: No Family History Family History: Other - family members have uri Parental Family History Reviewed: Yes Children Family History Reviewed: Yes Sibling(s) Family History Reviewed.: Yes Medication/Allergy Home Medications: Exenatide Microspheres [Bydureon Bcise] 2 mg SL FR@1000 PRN 12/19/17 Insulin Degludec [Tresiba Flextouch U-100] 48 unit SQ DAILY 12/19/17 Lisinopril/Hydrochlorothiazide [Lisinopril-Hctz 20-25 mg Tab] 1 tab PO DAILY Sitagliptin Phos/Metformin HCl [Janumet Xr 100-1,000 mg Tablet] 1 tab PO DAILY 12/19/17 Allergies/Adverse Reactions: sulfamethoxazole [From Bactrim] Allergy (Verified 12/03/17 18:36) trimethoprim [From Bactrim] Allergy (Verified 12/03/17 18:36) Review of Systems Constitutional: PRESENT: chills, fatigue, fever(s) Eyes: ABSENT: visual disturbances Ears: ABSENT: hearing changes Cardiovascular: ABSENT: chest pain, dyspnea on exertion, edema, orthropnea, palpitations Respiratory: PRESENT: cough, sputum Gastrointestinal: ABSENT: abdominal pain, constipation, diarrhea, hematemesis, hematochezia, nausea, vomiting Genitourinary: ABSENT: dysuria, hematuria Musculoskeletal: ABSENT: joint swelling Integumentary: ABSENT: rash, wounds Neurological: ABSENT: abnormal gait, abnormal speech, confusion, dizziness, focal weakness, syncope Psychiatric: ABSENT: anxiety, depression, homidical ideation, suicidal ideation Endocrine: ABSENT: cold intolerance, heat intolerance, menstrual abnormalities, polydipsia, polyuria Hematologic/Lymphatic: ABSENT: easy bleeding, easy bruising, lymphadenopathy Physical Exam Vital Signs: Temp Pulse Resp BP Pulse Ox 98.1 F 108 H 18 126/73 H 95 12/19/17 11:28 12/19/17 14:00 12/19/17 11:28 12/19/17 11:28 12/19/17 11:28 Intake & Output 12/18/17 12/19/17 12/20/17 06:59 06:59 06:59 Intake Total 570 170 Output Total 240 0 Balance 330 170 Weight 88.4 kg General appearance: PRESENT: mild distress Head exam: PRESENT: atraumatic, normocephalic Eye exam: PRESENT: PERRLA. ABSENT: scleral icterus Ear exam: PRESENT: normal external ear exam Mouth exam: PRESENT: moist, tongue midline Neck exam: PRESENT: full ROM Respiratory exam: PRESENT: rhonchi Cardiovascular exam: PRESENT: RRR, +S1, +S2 Pulses: PRESENT: normal dorsalis pedis pul, +2 pedal pulses bilateral Vascular exam: PRESENT: normal capillary refill GI/Abdominal exam: PRESENT: normal bowel sounds, soft Rectal exam: PRESENT: deferred Neurological exam: PRESENT: alert, CN II-XII grossly intact. ABSENT: motor sensory deficit Skin exam: PRESENT: dry, intact, warm Results Laboratory Results: 12/19/17 14:29 12/19/17 14:29 12/18/17 12/18/17 12/19/17 18:13 18:13 14:29 WBC 16.4 H RBC 2.95 L Hgb 8.8 L Hct 26.0 L MCV 88 MCH 29.8 MCHC 33.8 RDW 12.8 Plt Count 680 H Seg Neutrophils % 78.0 Lymphocytes % 14.2 Monocytes % 6.3 Eosinophils % 0.8 Basophils % 0.7 Absolute Neutrophils 12.8 H Absolute Lymphocytes 2.3 Absolute Monocytes 1.0 Absolute Eosinophils 0.1 Absolute Basophils 0.1 Sodium 136.3 L 139.5 Potassium 4.8 4.4 Chloride 100 103 Carbon Dioxide 28 27 Anion Gap 8 10 BUN 9 6 L Creatinine 0.78 0.79 Est GFR ( Amer) > 60 > 60 Est GFR (Non-Af Amer) > 60 > 60 Glucose 271 H 112 H Calcium 9.0 9.1 Total Bilirubin 0.8 0.5 AST 20 17 ALT 28 31 Alkaline Phosphatase 163 H 165 H Total Protein 7.3 7.2 Albumin 3.4 L 3.3 L 12/19/17 14:29 WBC 15.1 H RBC 2.83 L Hgb 8.5 L Hct 25.0 L MCV 88 MCH 30.1 MCHC 34.2 RDW 12.4 Plt Count 645 H Seg Neutrophils % 75.5 Lymphocytes % 15.8 Monocytes % 7.1 Eosinophils % 1.3 Basophils % 0.3 Absolute Neutrophils 11.4 H Absolute Lymphocytes 2.4 Absolute Monocytes 1.1 Absolute Eosinophils 0.2 Absolute Basophils 0.1 Sodium Potassium Chloride Carbon Dioxide Anion Gap BUN Creatinine Est GFR ( Amer) Est GFR (Non-Af Amer) Glucose Calcium Total Bilirubin AST ALT Alkaline Phosphatase Total Protein Albumin Impressions: Chest CT 12/18/17 00:00 IMPRESSION: Multifocal dense consolidation and nodularity in the right lower lobe. Mediastinal and hilar lymphadenopathy. Consider pulmonary consultation. Assessment & Plan - Diagnosis (1) Cryptogenic organizing pneumonia Is this a current diagnosis for this admission?: Yes Plan: Patient has been treated since 12/04/2017 with various antibiotic for what was felt to be infectious pneumonia with no clinical improvement, she has had IV vancomycin, cefepime, azithromycin and ceftriaxone this is probably non- infectious etiology, to confirm cryptogenic organizing pneumonia she will need bronchoscopic or open surgical lung biopsy, consultation will be obtained from pulmonary, and she be treated empirically with prednisone 40 mg p.o. daily (2) Right lower lobe pneumonia Qualifiers: Pneumonia type: due to unspecified organism Qualified Code(s): J18.1 - Lobar pneumonia, unspecified organism Is this a current diagnosis for this admission?: Yes (3) Diabetes mellitus type 2 in obese Is this a current diagnosis for this admission?: Yes (4) Lymphedema Is this a current diagnosis for this admission?: Yes
--- NOTE | 2017-12-19 17:06 | PDOC PROGRESS REPORT ---
Subjective Progress Note for:: 12/19/17 Subjective:: Patient was admitted yesterday for management of persistent right lower lobe consolidation, that was felt to be infectious pneumonia she received antibiotics both at [facility] and this hospital without clinical improvement. Cryptogenic organizing pneumonia is suspected, she is started on prednisone, she complained of cough Reason For Visit: PERSISTENT FEVER,TACHYCARDIA,RECURRENT Physical Exam Vital Signs: Temp Pulse Resp BP Pulse Ox 98.1 F 108 H 18 126/73 H 95 12/19/17 11:28 12/19/17 14:00 12/19/17 11:28 12/19/17 11:28 12/19/17 11:28 Intake & Output 12/18/17 12/19/17 12/20/17 06:59 06:59 06:59 Intake Total 570 170 Output Total 240 0 Balance 330 170 Weight 88.4 kg General appearance: PRESENT: no acute distress Eye exam: PRESENT: PERRLA Respiratory exam: PRESENT: clear to auscultation soraya Cardiovascular exam: PRESENT: +S1, +S2 GI/Abdominal exam: PRESENT: soft Neurological exam: PRESENT: alert Results Laboratory Results: 12/19/17 14:29 12/19/17 14:29 12/18/17 12/18/17 12/19/17 18:13 18:13 14:29 WBC 16.4 H RBC 2.95 L Hgb 8.8 L Hct 26.0 L MCV 88 MCH 29.8 MCHC 33.8 RDW 12.8 Plt Count 680 H Seg Neutrophils % 78.0 Lymphocytes % 14.2 Monocytes % 6.3 Eosinophils % 0.8 Basophils % 0.7 Absolute Neutrophils 12.8 H Absolute Lymphocytes 2.3 Absolute Monocytes 1.0 Absolute Eosinophils 0.1 Absolute Basophils 0.1 Sodium 136.3 L 139.5 Potassium 4.8 4.4 Chloride 100 103 Carbon Dioxide 28 27 Anion Gap 8 10 BUN 9 6 L Creatinine 0.78 0.79 Est GFR ( Amer) > 60 > 60 Est GFR (Non-Af Amer) > 60 > 60 Glucose 271 H 112 H Calcium 9.0 9.1 Total Bilirubin 0.8 0.5 AST 20 17 ALT 28 31 Alkaline Phosphatase 163 H 165 H Total Protein 7.3 7.2 Albumin 3.4 L 3.3 L 12/19/17 14:29 WBC 15.1 H RBC 2.83 L Hgb 8.5 L Hct 25.0 L MCV 88 MCH 30.1 MCHC 34.2 RDW 12.4 Plt Count 645 H Seg Neutrophils % 75.5 Lymphocytes % 15.8 Monocytes % 7.1 Eosinophils % 1.3 Basophils % 0.3 Absolute Neutrophils 11.4 H Absolute Lymphocytes 2.4 Absolute Monocytes 1.1 Absolute Eosinophils 0.2 Absolute Basophils 0.1 Sodium Potassium Chloride Carbon Dioxide Anion Gap BUN Creatinine Est GFR ( Amer) Est GFR (Non-Af Amer) Glucose Calcium Total Bilirubin AST ALT Alkaline Phosphatase Total Protein Albumin Impressions: Chest CT 12/18/17 00:00 IMPRESSION: Multifocal dense consolidation and nodularity in the right lower lobe. Mediastinal and hilar lymphadenopathy. Consider pulmonary consultation. Assessment & Plan - Diagnosis (1) Cryptogenic organizing pneumonia Is this a current diagnosis for this admission?: Yes Plan: Patient is started on prednisone 40 mg p.o. daily, typically to confirm organizing pneumonia bronchoscopy is indicated, consultation will be obtained from pulmonary (2) Right lower lobe pneumonia Qualifiers: Pneumonia type: due to unspecified organism Qualified Code(s): J18.1 - Lobar pneumonia, unspecified organism Is this a current diagnosis for this admission?: Yes Plan: We continue antibiotic empirically, no pathogen isolated so far (3) Diabetes mellitus type 2 in obese Is this a current diagnosis for this admission?: Yes (4) Lymphedema Is this a current diagnosis for this admission?: Yes
[2017-12-19] MEDS: LEVOFLOXACIN 750 MG/D5W RTU 750 MG/150 ML RTUPB IV SCH (17:28)
[2017-12-19] MEDS: ACETAMINOPHEN 325 MG TABLET PO PRN (17:31)
[2017-12-19] MEDS: NORMAL SALINE 1000 ML 1,000 ML IV PRN (17:32)
[2017-12-19] MEDS: PREDNISONE 20 MG TABLET PO SCH (17:35)
[2017-12-19] MEDS: CEFTRIAXONE SODIUM 1,000 MG in NORMAL SALINE 50 ML IV SCH (21:00)
[2017-12-20] MEDS: LANSOPRAZOLE 30 MG TAB.RAP.DR PO SCH (05:45)
[2017-12-20] MEDS: NORMAL SALINE 1000 ML 1,000 ML IV PRN ×2 (05:46→17:17)
[2017-12-20] MEDS: BENZONATATE 100 MG CAPSULE PO PRN ×2 (08:55→15:33)
[2017-12-20] MEDS: INSULIN LISPRO 100 UNIT/ML 3 ML VIAL SUBCUT PRN ×4 (08:55→22:55)
[2017-12-20] MEDS: VANCOMYCIN HCL 1,000 MG in DEXTROSE 5%-WATER 250 ML IV SCH ×2 (09:01→21:46)
[2017-12-20 13:54] LABS: ALANINE AMINOTRANSFERASE 24 U/L (9-52); ALBUMIN 3.6 g/dL (3.5-5.0); ALKALINE PHOSPHATASE 161 U/L (38-126); ANION GAP 7 (5-19); ASPARTATE AMINO TRANSFERASE 29 U/L (14-36); BILIRUBIN,DIRECT 0.5 mg/dL (0.0-0.4); BILIRUBIN,TOTAL 0.5 mg/dL (0.2-1.3); BLOOD UREA NITROGEN 11 mg/dL (7-20); CALCIUM 9.1 mg/dL (8.4-10.2); CARBON DIOXIDE 27 mmol/L (22-30); CHLORIDE 105 mmol/L (98-107); GLUCOSE 233 mg/dL (75-110); POTASSIUM 4.3 mmol/L (3.6-5.0); SODIUM 138.8 mmol/L (137-145); TOTAL PROTEIN 8.1 g/dL (6.3-8.2)
[2017-12-20 14:40] LABS: ABSOLUTE BASOPHILS # (AUTO) 0.1 10^3/uL (0.0-0.2); ABSOLUTE LYMPHOCYTES (AUTO) 2.1 10^3/uL (0.5-4.7); ABSOLUTE MONOCYTES (AUTO) 0.8 10^3/uL (0.1-1.4); ABSOLUTE NEUT (AUTO) 14.4 10^3/uL (1.7-8.2); BASOPHILS % (AUTO) 0.9 % (0-2); EOSINOPHILS % (AUTO) 0.1 % (0-6); HEMATOCRIT 27.1 % (36.0-47.0); HEMOGLOBIN 9.2 g/dL (12.0-15.5); LYMPHOCYTES % (AUTO) 11.8 % (13-45); MEAN CORPUSCULAR HEMOGLOBIN 30.1 pg (27.0-33.4); MEAN CORPUSCULAR HGB CONC 33.9 g/dL (32.0-36.0); MEAN CORPUSCULAR VOLUME 89 fl (80-97); MONOCYTES % (AUTO) 4.8 % (3-13); PLATELET COUNT 707 10^3/uL (150-450); RED BLOOD COUNT 3.05 10^6/uL (3.72-5.28); RED CELL DISTRIBUTION WIDTH 12.3 % (11.5-14.0); SEGMENTED NEUTROPHILS % (AUTO) 82.4 % (42-78); TOTAL CELLS COUNTED % (AUTO) 100 %; WHITE BLOOD COUNT 17.5 10^3/uL (4.0-10.5)
[2017-12-20] MEDS ORDERED: INSULIN DEGLUDEC 48 UNIT SQ SCH (14:45)
[2017-12-20] MEDS ORDERED: (PENDING PHARMACY ID) (Sitagliptin Phos/Metformin Hcl [Janumet Xr 100-1,000 Mg Tablet] 1 T PO SCH (14:45)
[2017-12-20] MEDS ORDERED: (PENDING PHARMACY ID) (Lisinopril/Hydrochlorothiazide [Lisinopril-Hctz 20-25 Mg Tab] 1 TAB PO SCH (14:45)
--- NOTE | 2017-12-20 15:08 | PDOC PROGRESS REPORT ---
Subjective Progress Note for:: 12/20/17 Subjective:: Patient was seen by the bedside, she was admitted for what was felt to be a recurrent pneumonia the right lower lobe, cryptogenic organizing pneumonia was suspected, yesterday she was started on prednisone 40 mg p.o. daily empirically , she had a dramatic turnaround today, she felt much better she said she feels like her self today for the first time. Reason For Visit: PERSISTENT FEVER,TACHYCARDIA,RECURRENT Physical Exam Vital Signs: Temp Pulse Resp BP Pulse Ox 98.1 F 102 H 16 137/80 H 96 12/20/17 12:32 12/20/17 12:32 12/20/17 12:32 12/20/17 12:32 12/20/17 12:32 Intake & Output 12/19/17 12/20/17 12/21/17 06:59 06:59 06:59 Intake Total 1570 2070 725 Output Total 240 800 0 Balance 1330 1270 725 Weight 88.4 kg 88.3 kg General appearance: PRESENT: no acute distress Eye exam: PRESENT: PERRLA Respiratory exam: PRESENT: clear to auscultation soraya, rhonchi Cardiovascular exam: PRESENT: +S1, +S2 GI/Abdominal exam: PRESENT: soft Neurological exam: PRESENT: alert Results Laboratory Results: 12/20/17 13:28 12/20/17 13:28 12/19/17 12/20/17 12/20/17 14:29 13:28 13:28 WBC 17.5 H RBC 3.05 L Hgb 9.2 L Hct 27.1 L MCV 89 MCH 30.1 MCHC 33.9 RDW 12.3 Plt Count 707 H Seg Neutrophils % 82.4 H Lymphocytes % 11.8 L Monocytes % 4.8 Eosinophils % 0.1 Basophils % 0.9 Absolute Neutrophils 14.4 H Absolute Lymphocytes 2.1 Absolute Monocytes 0.8 Absolute Eosinophils 0.0 Absolute Basophils 0.1 Sodium 139.5 138.8 Potassium 4.4 4.3 Chloride 103 105 Carbon Dioxide 27 27 Anion Gap 10 7 BUN 6 L 11 Creatinine 0.79 0.85 Est GFR ( Amer) > 60 > 60 Est GFR (Non-Af Amer) > 60 > 60 Glucose 112 H 233 H Calcium 9.1 9.1 Total Bilirubin 0.5 0.5 AST 17 29 ALT 31 24 Alkaline Phosphatase 165 H 161 H Total Protein 7.2 8.1 Albumin 3.3 L 3.6 12/18/17 18:35 Clean Catch Midstream Urine Culture - Final NO GROWTH 2 DAYS Impressions: Chest CT 12/18/17 00:00 IMPRESSION: Multifocal dense consolidation and nodularity in the right lower lobe. Mediastinal and hilar lymphadenopathy. Consider pulmonary consultation. Assessment & Plan - Diagnosis (1) Cryptogenic organizing pneumonia Is this a current diagnosis for this admission?: Yes Plan: She will continue prednisone 40 mg p.o. daily (2) Right lower lobe pneumonia Qualifiers: Pneumonia type: due to unspecified organism Qualified Code(s): J18.1 - Lobar pneumonia, unspecified organism Is this a current diagnosis for this admission?: Yes (3) Diabetes mellitus type 2 in obese Is this a current diagnosis for this admission?: Yes Plan: The blood sugar is increased, started back on her regular home meds (4) Lymphedema Is this a current diagnosis for this admission?: Yes
[2017-12-20] MEDS ORDERED: SITAGLIPTIN PHOSPHATE 50 MG TABLET PO SCH (16:00)
[2017-12-20] MEDS ORDERED: FLUCONAZOLE 100 MG TABLET PO ONE (17:00)
[2017-12-20] MEDS: LISINOPRIL 10 MG TABLET PO SCH (17:12)
[2017-12-20] MEDS: HYDROCHLOROTHIAZIDE 25 MG TABLET PO SCH (17:12)
[2017-12-20] MEDS: PREDNISONE 20 MG TABLET PO SCH (17:12)
[2017-12-20] MEDS: LEVOFLOXACIN 750 MG/D5W RTU 750 MG/150 ML RTUPB IV SCH (17:13)
[2017-12-20] MEDS: METFORMIN HCL 500 MG TABLET PO SCH (17:13)
[2017-12-20] MEDS ORDERED: NORMAL SALINE 1000 ML 1,000 ML IV PRN (18:56)
[2017-12-20] MEDS ORDERED: FUROSEMIDE INJ/PF 40 MG/4 ML SDV IV ONE ×2 (18:56→19:15)
--- NOTE | 2017-12-20 19:13 | EKG REPORT ---
SEVERITY:- OTHERWISE NORMAL ECG - SINUS TACHYCARDIA BORDERLINE LEFT AXIS DEVIATION : Confirmed by: Jayleen Cowan MD 20-Dec-2017 19:12:59
--- NOTE | 2017-12-20 20:49 | RADIOLOGY REPORT (SQ) ---
EXAM DESCRIPTION: CHEST SINGLE VIEW COMPLETED DATE/TIME: 12/20/2017 7:30 pm REASON FOR STUDY: SOB, tachycardia COMPARISON: CT chest 12/18/2017 EXAM PARAMETERS: NUMBER OF VIEWS: One view. TECHNIQUE: Single frontal radiographic view of the chest acquired. RADIATION DOSE: NA LIMITATIONS: None. FINDINGS: LUNGS AND PLEURA: Persistent airspace disease in the right lower lobe, improved compared t o 12/18/2017 CT chest. Left lung clear. No pleural effusions. No pneumothorax. MEDIASTINUM AND HILAR STRUCTURES: No masses. Contour normal. HEART AND VASCULAR STRUCTURES: Heart normal in size. Normal vasculature. BONES: Lower cervical fusion hardware HARDWARE: None in the chest. OTHER: No other significant finding. IMPRESSION: Partial clearing of the right lower lobe airspace compared CT chest 12/18/2017. TECHNICAL DOCUMENTATION: JOB ID: [id number] [employer]- All Rights Reserved Reading location - IP/workstation name: [email or web address]
[2017-12-20] MEDS: CEFTRIAXONE SODIUM 1,000 MG in NORMAL SALINE 50 ML IV SCH (21:46)
[2017-12-20 22:07] LABS: VANCOMYCIN,TROUGH 9.6 ug/mL (5.0-20.0)
[2017-12-21] MEDS: LANSOPRAZOLE 30 MG TAB.RAP.DR PO SCH (05:07)
[2017-12-21 06:38] LABS: ABSOLUTE BASOPHILS # (AUTO) 0.2 10^3/uL (0.0-0.2); ABSOLUTE LYMPHOCYTES (AUTO) 1.3 10^3/uL (0.5-4.7); ABSOLUTE MONOCYTES (AUTO) 0.4 10^3/uL (0.1-1.4); ABSOLUTE NEUT (AUTO) 16.4 10^3/uL (1.7-8.2); HEMATOCRIT 25.7 % (36.0-47.0); HEMOGLOBIN 8.6 g/dL (12.0-15.5); LYMPHOCYTES % (AUTO) 7.3 % (13-45); MEAN CORPUSCULAR HEMOGLOBIN 29.9 pg (27.0-33.4); MEAN CORPUSCULAR HGB CONC 33.3 g/dL (32.0-36.0); MEAN CORPUSCULAR VOLUME 90 fl (80-97); MONOCYTES % (AUTO) 2.1 % (3-13); PLATELET COUNT 665 10^3/uL (150-450); RED BLOOD COUNT 2.86 10^6/uL (3.72-5.28); RED CELL DISTRIBUTION WIDTH 12.5 % (11.5-14.0); SEGMENTED NEUTROPHILS % (AUTO) 89.6 % (42-78); TOTAL CELLS COUNTED % (AUTO) 100 %; WHITE BLOOD COUNT 18.3 10^3/uL (4.0-10.5)
[2017-12-21 06:49] LABS: ALANINE AMINOTRANSFERASE 41 U/L (9-52); ALBUMIN 3.1 g/dL (3.5-5.0); ALKALINE PHOSPHATASE 149 U/L (38-126); ANION GAP 12 (5-19); ASPARTATE AMINO TRANSFERASE 24 U/L (14-36); BILIRUBIN,DIRECT 0.2 mg/dL (0.0-0.4); BILIRUBIN,TOTAL 0.3 mg/dL (0.2-1.3); BLOOD UREA NITROGEN 12 mg/dL (7-20); CARBON DIOXIDE 23 mmol/L (22-30); CHLORIDE 103 mmol/L (98-107); POTASSIUM 4.7 mmol/L (3.6-5.0); SODIUM 138.1 mmol/L (137-145); TOTAL PROTEIN 6.7 g/dL (6.3-8.2)
[2017-12-21 07:05] LABS: GLUCOSE 426 mg/dL (75-110)
[2017-12-21] MEDS: BENZONATATE 100 MG CAPSULE PO PRN ×3 (08:26→21:41)
[2017-12-21] MEDS: METFORMIN HCL 500 MG TABLET PO SCH ×2 (08:26→17:33)
[2017-12-21] MEDS: INSULIN LISPRO 100 UNIT/ML 3 ML VIAL SUBCUT PRN ×4 (08:27→22:44)
[2017-12-21] MEDS: VANCOMYCIN HCL 1,500 MG in DEXTROSE 5%-WATER 250 ML IV SCH ×2 (08:27→20:04)
[2017-12-21] MEDS: LISINOPRIL 10 MG TABLET PO SCH (10:57)
[2017-12-21] MEDS: HYDROCHLOROTHIAZIDE 25 MG TABLET PO SCH (10:57)
[2017-12-21] MEDS: SITAGLIPTIN PHOSPHATE 50 MG TABLET PO SCH (10:58)
--- NOTE | 2017-12-21 14:56 | PDOC CONSULTATION ---
Consultation Consult Date: 12/21/17 Attending physician:: OSVALDO MONZON Consult reason:: Pneumonia History of Present Illness Admission Date/PCP: 12/18/17 15:46 OSVALDO MONZON MD History of Present Illness: ADELITA BOTELLO is a 57 year old female,received outpatient therapy for cough and shortness of breath subsequently [place] into her arms and was admitted to [facility] for 3 days for pneumonia and was subsequently discharged returned back to [place] and was seen by her primary care physician has subsequently admitted to [place] she denies any hemoptysis her PPD is negative dates unknown she says she has no history of chronic lung disease as a child or adolescent she admits to exposure to passive smoke as a child as well as an adult smoked intermittently in the past she denies any history of occupational lung disease she has no pets no recent travel she denies angina-like chest pain sleeps on 2 pillows occasional PND occasional nocturnal cough and no edema she admits to snoring restless sleep night unrestful sleep and excessive daytime somnolence Past Medical History Cardiac Medical History: Reports: Hypertension Pulmonary Medical History: Reports: Asthma, Bronchitis Endocrine Medical History: Reports: Diabetes Mellitus Type 1, Diabetes Mellitus Type 2 Past Surgical History Past Surgical History: Reports: Orthopedic Surgery - lumbar spine x 2, neck surg 06/13 Social History Information Source: Patient, [facility] Records Smoking Status: Former Smoker Last Time Smoked: 1989 Passive smoke exposure as: Both Frequency of Alcohol Use: Occasional Hx Recreational Drug Use: No Drugs: None Hx Prescription Drug Abuse: No Do you have pets?: No Have you had any respiratory illnesses as a child?: No Have you been exposed to any sick contacts recently?: No Have you had any recent respiratory illnesses?: No Have you travelled outside of [place] in the past 12 months?: No Family History Family History: Other - family members have uri Parental Family History Reviewed: Yes Children Family History Reviewed: Yes Sibling(s) Family History Reviewed.: Yes Medication/Allergy Home Medications: Exenatide Microspheres [Bydureon Bcise] 2 mg SL FR@1000 PRN 12/19/17 Insulin Degludec [Tresiba Flextouch U-100] 48 unit SQ DAILY 12/19/17 Lisinopril/Hydrochlorothiazide [Lisinopril-Hctz 20-25 mg Tab] 1 tab PO DAILY Sitagliptin Phos/Metformin HCl [Janumet Xr 100-1,000 mg Tablet] 1 tab PO DAILY 12/19/17 Allergies/Adverse Reactions: sulfamethoxazole [From Bactrim] Allergy (Verified 12/03/17 18:36) trimethoprim [From Bactrim] Allergy (Verified 12/03/17 18:36) Review of Systems Constitutional: PRESENT: fatigue, fever(s), night sweats Eyes: ABSENT: visual disturbances Ears: ABSENT: hearing changes Nose, Mouth, and Throat: PRESENT: sore throat. ABSENT: mouth pain Cardiovascular: PRESENT: dyspnea on exertion, orthropnea. ABSENT: edema, palpitations Respiratory: PRESENT: cough. ABSENT: hemoptysis Gastrointestinal: ABSENT: abdominal pain, diarrhea, heartburn, hematemesis, hematochezia Genitourinary: ABSENT: dysuria, hematuria Integumentary: ABSENT: pruritus, rash Neurological: ABSENT: abnormal movements, abnormal speech, confusion, convulsions, focal weakness, frequent falls, lack of coordination Psychiatric: ABSENT: hallucinations, homidical ideation, suicidal ideation Endocrine: ABSENT: polydipsia, polyphagia, polyuria Hematologic/Lymphatic: ABSENT: easy bleeding, easy bruising Allergic/Immunologic: ABSENT: seasonal rhinorrhea Physical Exam Vital Signs: Temp Pulse Resp BP Pulse Ox 97.8 F 89 18 137/80 H 94 12/21/17 08:01 12/21/17 08:01 12/21/17 08:01 12/21/17 08:01 12/21/17 08:01 Intake & Output 12/20/17 12/21/17 12/22/17 06:59 06:59 06:59 Intake Total 2220 2700 250 Output Total 800 701 Balance 1420 1999 250 Weight 88.3 kg 89.4 kg General appearance: PRESENT: no acute distress, cooperative, obese, well- developed, well-nourished. ABSENT: disheveled Head exam: PRESENT: atraumatic, normocephalic Eye exam: PRESENT: conjunctiva pale, EOMI, PERRLA. ABSENT: nystagmus, periorbital swelling Mouth exam: PRESENT: moist, neck supple, tongue midline Neck exam: ABSENT: carotid bruit, JVD, lymphadenopathy, thyromegaly, tracheal deviation, tracheostomy Respiratory exam: PRESENT: decreased breath sounds, prolonged expiratory phas, rales, rhonchi, unlabored, wheezes. ABSENT: retraction, stridor, tachypnea Cardiovascular exam: PRESENT: RRR, +S1, +S2 Pulses: PRESENT: normal radial pulses GI/Abdominal exam: PRESENT: normal bowel sounds, soft. ABSENT: tenderness Extremities exam: ABSENT: calf tenderness, clubbing, tenderness Musculoskeletal exam: ABSENT: deformity, dislocation Neurological exam: PRESENT: alert, awake Psychiatric exam: PRESENT: normal mood Skin exam: PRESENT: dry, warm Results Laboratory Results: 12/21/17 06:16 12/21/17 06:16 12/20/17 12/21/17 12/21/17 21:35 06:16 06:16 WBC 18.3 H RBC 2.86 L Hgb 8.6 L Hct 25.7 L MCV 90 MCH 29.9 MCHC 33.3 RDW 12.5 Plt Count 665 H Seg Neutrophils % 89.6 H Lymphocytes % 7.3 L Monocytes % 2.1 L Eosinophils % 0.0 Basophils % 1.0 Absolute Neutrophils 16.4 H Absolute Lymphocytes 1.3 Absolute Monocytes 0.4 Absolute Eosinophils 0.0 Absolute Basophils 0.2 Sodium 138.1 Potassium 4.7 Chloride 103 Carbon Dioxide 23 Anion Gap 12 BUN 12 Creatinine 0.87 0.84 Est GFR ( Amer) > 60 > 60 Est GFR (Non-Af Amer) > 60 > 60 Glucose 426 H* Calcium 9.0 Total Bilirubin 0.3 AST 24 ALT 41 Alkaline Phosphatase 149 H Total Protein 6.7 Albumin 3.1 L 12/19/17 17:30 Sputum Gram Stain - Final 12/19/17 17:30 Sputum Sputum Culture - Final Impressions: Chest CT 12/18/17 00:00 IMPRESSION: Multifocal dense consolidation and nodularity in the right lower lobe. Mediastinal and hilar lymphadenopathy. Consider pulmonary consultation. Chest X-Ray 12/20/17 00:00 IMPRESSION: Partial clearing of the right lower lobe airspace compared CT chest 12/18/2017. Assessment & Plan - Diagnosis (1) Right lower lobe pneumonia Qualifiers: Pneumonia type: due to unspecified organism Qualified Code(s): J18.1 - Lobar pneumonia, unspecified organism Is this a current diagnosis for this admission?: Yes Plan: Suggest continue current antibiotic therapy adding Xopenex for bronchodilator chest physiotherapy and postural drainage to the right lower lobe along with some acetylcysteine (2) Diabetes mellitus type 2 in obese Is this a current diagnosis for this admission?: Yes Plan: Stop prednisone for the time being this may in and of itself spuriously elevated white count. (3) Anemia Is this a current diagnosis for this admission?: Yes Plan: Check serum iron et al retic-count
[2017-12-21] MEDS: LEVALBUTEROL HCL NEB 1.25 MG/3 ML AMPUL NEB SCH ×2 (16:28→23:57)
[2017-12-21] MEDS: LEVOFLOXACIN 750 MG/D5W RTU 750 MG/150 ML RTUPB IV SCH (17:38)
[2017-12-21] MEDS: ACETAMINOPHEN 325 MG TABLET PO PRN (20:04)
[2017-12-21] MEDS: ACETYLCYSTEINE 20% SOLN 800 MG/4 ML VIAL.NEB NEB SCH (20:21)
--- NOTE | 2017-12-21 20:56 | PDOC PROGRESS REPORT ---
Subjective Progress Note for:: 12/21/17 Subjective:: She was seen by pulmonary, she was seen by the bedside Reason For Visit: PERSISTENT FEVER,TACHYCARDIA,RECURRENT Physical Exam Vital Signs: Temp Pulse Resp BP Pulse Ox 98.7 F 123 H 22 H 103/66 96 12/21/17 19:53 12/21/17 19:53 12/21/17 19:53 12/21/17 19:53 12/21/17 19:53 Intake & Output 12/20/17 12/21/17 12/22/17 06:59 06:59 06:59 Intake Total 2220 2700 1537 Output Total 800 701 550 Balance 1420 1999 987 Weight 88.3 kg 89.4 kg General appearance: PRESENT: no acute distress Eye exam: PRESENT: PERRLA Respiratory exam: PRESENT: rhonchi Cardiovascular exam: PRESENT: +S1, +S2 GI/Abdominal exam: PRESENT: soft Neurological exam: PRESENT: alert Results Laboratory Results: 12/21/17 06:16 12/21/17 06:16 12/20/17 12/21/17 12/21/17 21:35 06:16 06:16 WBC 18.3 H RBC 2.86 L Hgb 8.6 L Hct 25.7 L MCV 90 MCH 29.9 MCHC 33.3 RDW 12.5 Plt Count 665 H Seg Neutrophils % 89.6 H Lymphocytes % 7.3 L Monocytes % 2.1 L Eosinophils % 0.0 Basophils % 1.0 Absolute Neutrophils 16.4 H Absolute Lymphocytes 1.3 Absolute Monocytes 0.4 Absolute Eosinophils 0.0 Absolute Basophils 0.2 Sodium 138.1 Potassium 4.7 Chloride 103 Carbon Dioxide 23 Anion Gap 12 BUN 12 Creatinine 0.87 0.84 Est GFR ( Amer) > 60 > 60 Est GFR (Non-Af Amer) > 60 > 60 Glucose 426 H* Calcium 9.0 Total Bilirubin 0.3 AST 24 ALT 41 Alkaline Phosphatase 149 H Total Protein 6.7 Albumin 3.1 L 12/19/17 17:30 Sputum Gram Stain - Final 12/19/17 17:30 Sputum Sputum Culture - Final Impressions: Chest CT 12/18/17 00:00 IMPRESSION: Multifocal dense consolidation and nodularity in the right lower lobe. Mediastinal and hilar lymphadenopathy. Consider pulmonary consultation. Chest X-Ray 12/20/17 00:00 IMPRESSION: Partial clearing of the right lower lobe airspace compared CT chest 12/18/2017. Assessment & Plan - Diagnosis (1) Cryptogenic organizing pneumonia Is this a current diagnosis for this admission?: Yes (2) Right lower lobe pneumonia Qualifiers: Pneumonia type: due to unspecified organism Qualified Code(s): J18.1 - Lobar pneumonia, unspecified organism Is this a current diagnosis for this admission?: Yes (3) Diabetes mellitus type 2 in obese Is this a current diagnosis for this admission?: Yes (4) Lymphedema Is this a current diagnosis for this admission?: Yes - Plan Summary Plan Summary: Continue management
[2017-12-21] MEDS: CEFTRIAXONE SODIUM 1,000 MG in NORMAL SALINE 50 ML IV SCH (21:41)
[2017-12-22] MEDS: LANSOPRAZOLE 30 MG TAB.RAP.DR PO SCH (05:45)
[2017-12-22] MEDS: BENZONATATE 100 MG CAPSULE PO PRN ×3 (05:45→22:59)
[2017-12-22] MEDS: ACETAMINOPHEN 325 MG TABLET PO PRN ×3 (05:58→23:01)
[2017-12-22 06:36] LABS: ABSOLUTE BASOPHILS # (AUTO) 0.1 10^3/uL (0.0-0.2); ABSOLUTE EOSINOPHILS # (AUTO) 0.1 10^3/uL (0.0-0.6); ABSOLUTE LYMPHOCYTES (AUTO) 2.4 10^3/uL (0.5-4.7); ABSOLUTE MONOCYTES (AUTO) 1.3 10^3/uL (0.1-1.4); ABSOLUTE RETICS # 0.095 10^6/uL (0.028-0.122); BASOPHILS % (AUTO) 0.7 % (0-2); EOSINOPHILS % (AUTO) 0.4 % (0-6); HEMATOCRIT 26.6 % (36.0-47.0); HEMOGLOBIN 8.8 g/dL (12.0-15.5); LYMPHOCYTES % (AUTO) 13.3 % (13-45); MEAN CORPUSCULAR HEMOGLOBIN 29.4 pg (27.0-33.4); MEAN CORPUSCULAR VOLUME 89 fl (80-97); MONOCYTES % (AUTO) 7.2 % (3-13); PLATELET COUNT 738 10^3/uL (150-450); RED BLOOD COUNT 2.98 10^6/uL (3.72-5.28); RED CELL DISTRIBUTION WIDTH 12.7 % (11.5-14.0); RETICULOCYTE COUNT (AUTO) 3.19 % (0.66-2.85); SEGMENTED NEUTROPHILS % (AUTO) 78.4 % (42-78); TOTAL CELLS COUNTED % (AUTO) 100 %; WHITE BLOOD COUNT 17.8 10^3/uL (4.0-10.5)
[2017-12-22 07:44] LABS: ANION GAP 12 (5-19); BLOOD UREA NITROGEN 14 mg/dL (7-20); CALCIUM 8.9 mg/dL (8.4-10.2); CARBON DIOXIDE 24 mmol/L (22-30); CHLORIDE 103 mmol/L (98-107); GLUCOSE 243 mg/dL (75-110); IRON(TIBC) 30.3 ug/dL (37-170); POTASSIUM 4.1 mmol/L (3.6-5.0); SODIUM 138.8 mmol/L (137-145)
[2017-12-22] MEDS: LEVALBUTEROL HCL NEB 1.25 MG/3 ML AMPUL NEB SCH ×3 (08:10→20:44)
[2017-12-22] MEDS: ACETYLCYSTEINE 20% SOLN 800 MG/4 ML VIAL.NEB NEB SCH ×2 (08:10→20:44)
[2017-12-22] MEDS: VANCOMYCIN HCL 1,500 MG in DEXTROSE 5%-WATER 250 ML IV SCH ×2 (08:59→23:10)
[2017-12-22] MEDS: METFORMIN HCL 500 MG TABLET PO SCH ×2 (09:00→17:04)
[2017-12-22] MEDS: LISINOPRIL 10 MG TABLET PO SCH (09:02)
[2017-12-22] MEDS: SITAGLIPTIN PHOSPHATE 50 MG TABLET PO SCH (09:02)
[2017-12-22] MEDS: HYDROCHLOROTHIAZIDE 25 MG TABLET PO SCH (09:02)
[2017-12-22] MEDS: INSULIN LISPRO 100 UNIT/ML 3 ML VIAL SUBCUT PRN ×4 (09:18→22:56)
[2017-12-22 10:32] LABS: FOLATE 6.56 ng/mL (>2.76)
[2017-12-22 16:39] LABS: ALBUMIN URINE 26.3 % (.); ALPHA-2-GLOBULIN UR 20.1 % (.); GAMMA GLOBULIN UR 27.8 % (.); M-SPIKE % URINE Not Observed % (Not Observ); PROTEIN TOTAL URINE 91.3 mg/dL (Not Estab.)
[2017-12-22] MEDS: LEVOFLOXACIN 750 MG/D5W RTU 750 MG/150 ML RTUPB IV SCH (17:05)
[2017-12-22] MEDS ORDERED: LIDOCAINE 1% INJ-PF (10 MG/ML) 30 ML SDV ONE (19:43)
--- NOTE | 2017-12-22 20:10 | Operative Report ---
Nonrecallable Operative Report DATE OF SURGERY: 12/22/17 PREOPERATIVE DIAGNOSIS: need of IV access POSTOPERATIVE DIAGNOSIS: same OPERATION: left subclavian vein triple lumen central venous catheter SURGEON: ARABELLA GUTIERREZ ANESTHESIA: Local TISSUE REMOVED OR ALTERED: n/a COMPLICATIONS: n/a ESTIMATED BLOOD LOSS: < 2 mL INTRAOPERATIVE FINDINGS: as above PROCEDURE: see dictation
--- NOTE | 2017-12-22 20:41 | RADIOLOGY REPORT (SQ) ---
EXAM DESCRIPTION: CHEST SINGLE VIEW COMPLETED DATE/TIME: 12/22/2017 8:31 pm REASON FOR STUDY: central line placement COMPARISON: 12/20/2017 EXAM PARAMETERS: NUMBER OF VIEWS: One view. TECHNIQUE: Single frontal radiographic view of the chest acquired. RADIATION DOSE: NA LIMITATIONS: None. FINDINGS: LUNGS AND PLEURA: Mild residual infiltrate in the medial right base. MEDIASTINUM AND HILAR STRUCTURES: No masses. Contour normal. HEART AND VASCULAR STRUCTURES: Heart normal in size. Normal vasculature. BONES: No acute findings. HARDWARE: Left subclavian line has its tip in the superior vena cava. OTHER: No other significant finding. IMPRESSION: Mild residual right lower lobe pneumonia. Central line placement. TECHNICAL DOCUMENTATION: JOB ID: [id number] [employer]- All Rights Reserved Reading location - IP/workstation name: [email or web address]
--- NOTE | 2017-12-22 21:12 | PDOC PROGRESS REPORT ---
Subjective Progress Note for:: 12/22/17 Subjective:: Patient seen by the bedside, she seems to be responding to treatment, she has no peripheral IV access, consultation obtained from surgery for central line IV access Reason For Visit: PERSISTENT FEVER,TACHYCARDIA,RECURRENT Physical Exam Vital Signs: Temp Pulse Resp BP Pulse Ox 98.3 F 110 H 22 H 127/74 H 94 12/22/17 20:16 12/22/17 20:16 12/22/17 20:16 12/22/17 20:16 12/22/17 20:16 Intake & Output 12/21/17 12/22/17 12/23/17 06:59 06:59 06:59 Intake Total 2700 2842 468 Output Total 701 550 Balance 1998 2292 468 Weight 89.4 kg 89.5 kg General appearance: PRESENT: no acute distress Eye exam: PRESENT: PERRLA Respiratory exam: PRESENT: clear to auscultation soraya Cardiovascular exam: PRESENT: +S1, +S2 GI/Abdominal exam: PRESENT: soft Neurological exam: PRESENT: alert Results Laboratory Results: 12/22/17 06:14 12/22/17 06:14 12/22/17 12/22/17 06:14 06:14 WBC 17.8 H RBC 2.98 L Hgb 8.8 L Hct 26.6 L MCV 89 MCH 29.4 MCHC 33.0 RDW 12.7 Plt Count 738 H Seg Neutrophils % 78.4 H Lymphocytes % 13.3 Monocytes % 7.2 Eosinophils % 0.4 Basophils % 0.7 Absolute Neutrophils 14.0 H Absolute Lymphocytes 2.4 Absolute Monocytes 1.3 Absolute Eosinophils 0.1 Absolute Basophils 0.1 Retic Count (auto) 3.19 H Absolute Retic 0.095 Sodium 138.8 Potassium 4.1 Chloride 103 Carbon Dioxide 24 Anion Gap 12 BUN 14 Creatinine 0.93 Est GFR ( Amer) > 60 Est GFR (Non-Af Amer) > 60 Glucose 243 H Calcium 8.9 Iron 30.3 L TIBC 199 L % Saturation 15 Ferritin 271.00 H Vitamin B12 428.0 Folate 6.56 Impressions: Chest CT 12/18/17 00:00 IMPRESSION: Multifocal dense consolidation and nodularity in the right lower lobe. Mediastinal and hilar lymphadenopathy. Consider pulmonary consultation. Chest X-Ray 12/22/17 00:00 IMPRESSION: Mild residual right lower lobe pneumonia. Central line placement. Assessment & Plan - Diagnosis (1) Cryptogenic organizing pneumonia Is this a current diagnosis for this admission?: Yes (2) Right lower lobe pneumonia Qualifiers: Pneumonia type: due to unspecified organism Qualified Code(s): J18.1 - Lobar pneumonia, unspecified organism Is this a current diagnosis for this admission?: Yes Plan: Continue IV antibiotic (3) Diabetes mellitus type 2 in obese Is this a current diagnosis for this admission?: Yes (4) Lymphedema Is this a current diagnosis for this admission?: Yes
--- NOTE | 2017-12-22 21:48 | PDOC CONSULTATION ---
Consultation Consult Date: 12/22/17 Consult reason:: need of IV access History of Present Illness Admission Date/PCP: 12/18/17 15:46 OSVALDO MONZON MD History of Present Illness: ADELITA BOTELLO is a 57 year old female with DKA in need of iv access for administration of medications and drugs Past Medical History Cardiac Medical History: Reports: Hypertension Pulmonary Medical History: Reports: Asthma, Bronchitis Endocrine Medical History: Reports: Diabetes Mellitus Type 1, Diabetes Mellitus Type 2 Past Surgical History Past Surgical History: Reports: Orthopedic Surgery - lumbar spine x 2, neck surg 06/13 Social History Smoking Status: Former Smoker Last Time Smoked: 1989 Frequency of Alcohol Use: Occasional Hx Recreational Drug Use: No Drugs: None Hx Prescription Drug Abuse: No Family History Family History: Other - family members have uri Parental Family History Reviewed: No Children Family History Reviewed: No Sibling(s) Family History Reviewed.: No Medication/Allergy Home Medications: Exenatide Microspheres [Bydureon Bcise] 2 mg SL FR@1000 PRN 12/19/17 Insulin Degludec [Tresiba Flextouch U-100] 48 unit SQ DAILY 12/19/17 Lisinopril/Hydrochlorothiazide [Lisinopril-Hctz 20-25 mg Tab] 1 tab PO DAILY Sitagliptin Phos/Metformin HCl [Janumet Xr 100-1,000 mg Tablet] 1 tab PO DAILY 12/19/17 Allergies/Adverse Reactions: sulfamethoxazole [From Bactrim] Allergy (Verified 12/03/17 18:36) trimethoprim [From Bactrim] Allergy (Verified 12/03/17 18:36) Physical Exam Vital Signs: Temp Pulse Resp BP Pulse Ox 98.3 F 110 H 22 H 127/74 H 94 12/22/17 20:16 12/22/17 20:16 12/22/17 20:16 12/22/17 20:16 12/22/17 20:16 Intake & Output 12/21/17 12/22/17 12/23/17 06:59 06:59 06:59 Intake Total 2700 1182 468 Output Total 701 550 Balance 19982 468 Weight 89.4 kg 89.5 kg General appearance: PRESENT: no acute distress Eye exam: PRESENT: EOMI Mouth exam: PRESENT: neck supple Respiratory exam: PRESENT: clear to auscultation soraya Cardiovascular exam: PRESENT: RRR GI/Abdominal exam: PRESENT: soft Neurological exam: PRESENT: alert, oriented to time, oriented to situation Results Laboratory Results: 12/22/17 06:14 12/22/17 06:14 12/22/17 12/22/17 06:14 06:14 WBC 17.8 H RBC 2.98 L Hgb 8.8 L Hct 26.6 L MCV 89 MCH 29.4 MCHC 33.0 RDW 12.7 Plt Count 738 H Seg Neutrophils % 78.4 H Lymphocytes % 13.3 Monocytes % 7.2 Eosinophils % 0.4 Basophils % 0.7 Absolute Neutrophils 14.0 H Absolute Lymphocytes 2.4 Absolute Monocytes 1.3 Absolute Eosinophils 0.1 Absolute Basophils 0.1 Retic Count (auto) 3.19 H Absolute Retic 0.095 Sodium 138.8 Potassium 4.1 Chloride 103 Carbon Dioxide 24 Anion Gap 12 BUN 14 Creatinine 0.93 Est GFR ( Amer) > 60 Est GFR (Non-Af Amer) > 60 Glucose 243 H Calcium 8.9 Iron 30.3 L TIBC 199 L % Saturation 15 Ferritin 271.00 H Vitamin B12 428.0 Folate 6.56 Impressions: Chest CT 12/18/17 00:00 IMPRESSION: Multifocal dense consolidation and nodularity in the right lower lobe. Mediastinal and hilar lymphadenopathy. Consider pulmonary consultation. Chest X-Ray 12/22/17 00:00 IMPRESSION: Mild residual right lower lobe pneumonia. Central line placement. Assessment & Plan - Diagnosis (1) Need for intravenous access Is this a current diagnosis for this admission?: Yes - Plan Summary Plan Summary: A/ Severe DKA Need IV access P/ Placement of triple lumen central venous catheter Procedure, risks, benefits, complications explained to the patient, she understands, and decides to proceed.
[2017-12-22] MEDS ORDERED: ZOLPIDEM TARTRATE 5 MG TABLET PO SCH (22:00)
[2017-12-22] MEDS: CEFTRIAXONE SODIUM 1,000 MG in NORMAL SALINE 50 ML IV SCH (22:29)
--- NOTE | 2017-12-22 22:51 | OPERATIVE REPORT E ---
Operative Report NAME: ADELITA BOTELLO : 1960 AGE: 57Y DATE OF SURGERY: 12/22/2017 ROOM: 335 PREOPERATIVE DIAGNOSIS: NEED FOR INTRAVENOUS ACCESS. POSTOPERATIVE DIAGNOSIS: NEED FOR INTRAVENOUS ACCESS. OPERATION: Placement of left subclavian vein triple lumen central venous catheter. SURGEON: ARABELLA GUTIERREZ M.D. COMPLICATIONS: None. ANESTHESIA: Local, 10 mL of 1% lidocaine with epinephrine. INDICATION/FINDINGS: This 57-year-old female is in need of IV access to receive medications and antibiotics. PROCEDURE: At the bedside, the patient was placed in supine position. The left side of her chest and neck were prepped and draped in the usual fashion. Just below the middle portion of the left clavicle was infiltrated with lidocaine. A 16 gauge needle was used to easily cannulate the left subclavian vein. The guidewire was inserted through the needle into the superior vena cava. The needle was removed. The insertion point of the guidewire was enlarged with a tissue dilator and the triple lumen catheter was inserted over the guidewire into the superior vena cava. The guidewire was removed. The port was insufflated and flushed with normal saline without difficulty. The catheter was secured to the skin with silk sutures. Sterile dressings applied. The patient tolerated the procedure well. Chest x-ray was obtained to confirm position of the line. DICTATING PHYSICIAN: ARABELLA GUTIERREZ M.D. [id number] PHY#: [id number] 2006 ID: [id number] JOB#: [id number] ACCT: [id number] cc:ARABELLA GUTIERREZ M.D. > MTDD
[2017-12-23] MEDS: BENZONATATE 100 MG CAPSULE PO PRN ×2 (03:05→08:37)
[2017-12-23] MEDS: LANSOPRAZOLE 30 MG TAB.RAP.DR PO SCH (05:15)
[2017-12-23] MEDS: TRAMADOL HCL 50 MG TABLET PO PRN (08:37)
[2017-12-23] MEDS: METFORMIN HCL 500 MG TABLET PO SCH ×2 (08:38→17:24)
[2017-12-23] MEDS: VANCOMYCIN HCL 1,500 MG in DEXTROSE 5%-WATER 250 ML IV SCH ×2 (08:40→20:36)
[2017-12-23] MEDS: LEVALBUTEROL HCL NEB 1.25 MG/3 ML AMPUL NEB SCH ×3 (08:46→20:16)
[2017-12-23] MEDS: ACETYLCYSTEINE 20% SOLN 800 MG/4 ML VIAL.NEB NEB SCH ×2 (08:47→20:16)
[2017-12-23] MEDS: INSULIN LISPRO 100 UNIT/ML 3 ML VIAL SUBCUT PRN ×3 (08:51→22:25)
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
--- NOTE | 2017-12-23 10:56 | RADIOLOGY REPORT (SQ) ---
EXAM DESCRIPTION: CHEST 2 VIEWS COMPLETED DATE/TIME: 12/23/2017 10:47 am REASON FOR STUDY: pneumonia COMPARISON: CT chest dated 12/18/2017, chest x-ray dated 12/22/2017 EXAM PARAMETERS: NUMBER OF VIEWS: two views TECHNIQUE: Digital Frontal and Lateral radiographic views of the chest acquired. RADIATION DOSE: NA LIMITATIONS: none FINDINGS: LUNGS AND PLEURA: There is increasing right lower lobe pneumonia seen best on the lateral projection. MEDIASTINUM AND HILAR STRUCTURES: Unchanged. HEART AND VASCULAR STRUCTURES: Heart normal size. No evidence for failure. BONES: No acute findings. HARDWARE: [id number]-M-[id number] is in place. OTHER: No other significant finding. IMPRESSION: Increasing right lower lobe pneumonia. TECHNICAL DOCUMENTATION: JOB ID: [id number] [employer]- All Rights Reserved Reading location - IP/workstation name: [email or web address]
[2017-12-23] MEDS: SITAGLIPTIN PHOSPHATE 50 MG TABLET PO SCH (11:02)
[2017-12-23] MEDS: LISINOPRIL 10 MG TABLET PO SCH (11:02)
[2017-12-23] MEDS: HYDROCHLOROTHIAZIDE 25 MG TABLET PO SCH (11:02)
--- NOTE | 2017-12-23 11:32 | RADIOLOGY REPORT (SQ) ---
EXAM DESCRIPTION: CT HEAD WITHOUT COMPLETED DATE/TIME: 12/23/2017 11:19 am REASON FOR STUDY: severe pain COMPARISON: None. TECHNIQUE: Axial images acquired through the brain without intravenous contrast. Images reviewed wi th bone, brain and subdural windows. Additional sagittal and coronal reconstructions were generated. Images stored on PACS. All CT scanners at this facility use dose modulation, iterative reconstruction, and/or weight based d osing when appropriate to reduce radiation dose to as low as reasonably achievable (ALARA). [facility]: Dose Right [facility]: CareDose [facility]: Dose Right [facility]: Teradose 4D [facility]: [employer] RADIATION DOSE: CT Rad equipment meets quality standard of care and radiation dose reduction techniq ues were employed. CTDIvol: 48.6 mGy. DLP: 930 mGy-cm. mGy. LIMITATIONS: None. FINDINGS: VENTRICLES: Normal size and contour. CEREBRUM: No masses. No hemorrhage. No midline shift. No evidence for acute infarction. Normal gra y/white matter differentiation. No areas of low density in the white matter. CEREBELLUM: No masses. No hemorrhage. No alteration of density. No evidence for acute infarction. EXTRAAXIAL SPACES: No fluid collections. No masses. ORBITS AND GLOBE: No intra- or extraconal masses. Normal contour of globe without masses. CALVARIUM: No fracture. PARANASAL SINUSES: No fluid or mucosal thickening. SOFT TISSUES: There is some minimal focal increased density in the scalp in the right posterior front al region which could represent a small hematoma. OTHER: No other significant finding. IMPRESSION: No significant intracranial abnormalities were identified. Other findings as noted abov e EVIDENCE OF ACUTE STROKE: NO. COMMENT: Quality ID # [id number]: Final reports with documentation of one or more dose reduction techniques (e.g., Automated exposure control, adjustment of the mA and/or kV according to patient size, use of iterative reconstruction technique) TECHNICAL DOCUMENTATION: JOB ID: [id number] [employer]- All Rights Reserved Reading location - IP/workstation name: [email or web address]
--- NOTE | 2017-12-23 11:44 | RADIOLOGY REPORT (SQ) ---
EXAM DESCRIPTION: CT CERVICAL SPINE WITHOUT COMPLETED DATE/TIME: 12/23/2017 11:19 am REASON FOR STUDY: severe pain COMPARISON: None. TECHNIQUE: Axial images acquired through the cervical spine without intravenous contrast. Images re viewed with lung, soft tissue and bone windows. Reconstructed coronal and sagittal MPR images review ed. Images stored on PACS. All CT scanners at this facility use dose modulation, iterative reconstruction, and/or weight based d osing when appropriate to reduce radiation dose to as low as reasonably achievable (ALARA). [facility]: Dose Right [facility]: CareDose [facility]: Dose Right [facility]: Teradose 4D [facility]: [employer] RADIATION DOSE: CT Rad equipment meets quality standard of care and radiation dose reduction techniq ues were employed. CTDIvol: 21.1 mGy. DLP: 567 mGy-cm. mGy. LIMITATIONS: Study is limited due to signal voids related to posterior orthopedic hardware. FINDINGS: ALIGNMENT: Anatomic. MINERALIZATION: Bony structures are somewhat osteopenic. VERTEBRAL BODIES: No fractures or dislocation. Presumed bony fusion of the C5 and C6 vertebra. Post erior osteophytic lipping is identified at the C5 and C6 levels. DISCS: Multilevel disc space narrowing. FACETS, LATERAL MASSES, POSTERIOR ELEMENTS: Facet arthropathy. No fractures. No dislocation. No ac absentee-shawnee findings. HARDWARE: Bilateral posterior orthopedic rods transfixed by pedicular screws are identified extending from the C3 to the C7 level. VISUALIZED RIBS: No fractures. LUNG APICES AND SOFT TISSUES: No significant or acute findings. OTHER: No other significant finding. IMPRESSION: CHRONIC DEGENERATIVE CHANGES. Postsurgical changes as noted above. Other findings as n oted above TECHNICAL DOCUMENTATION: JOB ID: [id number] Quality ID # [id number]: Final reports with documentation of one or more dose reduction techniques (e.g., Au tomated exposure control, adjustment of the mA and/or kV according to patient size, use of iterative reconstruction technique) 2010 [employer]- All Rights Reserved Reading location - IP/workstation name: [email or web address]
[2017-12-23] MEDS: GUAIFENESIN SYRP 200 MG/10 ML UDC PO PRN ×2 (12:37→22:25)
[2017-12-23 14:35] LABS: ABSOLUTE BASOPHILS # (AUTO) 0.1 10^3/uL (0.0-0.2); ABSOLUTE EOSINOPHILS # (AUTO) 0.2 10^3/uL (0.0-0.6); ABSOLUTE LYMPHOCYTES (AUTO) 1.8 10^3/uL (0.5-4.7); ABSOLUTE MONOCYTES (AUTO) 0.8 10^3/uL (0.1-1.4); ABSOLUTE NEUT (AUTO) 12.1 10^3/uL (1.7-8.2); BASOPHILS % (AUTO) 0.9 % (0-2); EOSINOPHILS % (AUTO) 1.4 % (0-6); HEMATOCRIT 25.5 % (36.0-47.0); HEMOGLOBIN 8.7 g/dL (12.0-15.5); LYMPHOCYTES % (AUTO) 11.9 % (13-45); MEAN CORPUSCULAR HEMOGLOBIN 30.2 pg (27.0-33.4); MEAN CORPUSCULAR HGB CONC 34.1 g/dL (32.0-36.0); MEAN CORPUSCULAR VOLUME 89 fl (80-97); MONOCYTES % (AUTO) 5.5 % (3-13); PLATELET COUNT 607 10^3/uL (150-450); RED BLOOD COUNT 2.88 10^6/uL (3.72-5.28); SEGMENTED NEUTROPHILS % (AUTO) 80.3 % (42-78); TOTAL CELLS COUNTED % (AUTO) 100 %; WHITE BLOOD COUNT 15.1 10^3/uL (4.0-10.5)
[2017-12-23 15:04] LABS: ANION GAP 10 (5-19); BLOOD UREA NITROGEN 8 mg/dL (7-20); CALCIUM 9.2 mg/dL (8.4-10.2); CARBON DIOXIDE 28 mmol/L (22-30); CHLORIDE 99 mmol/L (98-107); GLUCOSE 195 mg/dL (75-110); POTASSIUM 3.9 mmol/L (3.6-5.0); SODIUM 137.4 mmol/L (137-145)
[2017-12-23] MEDS: HYDROMORPHONE HCL INJ/PF 2 MG/ML AMPULE IV PRN ×2 (16:20→19:16)
[2017-12-23] MEDS ORDERED: HYDROMORPHONE HCL INJ/PF 2 MG/ML AMPULE ONE (16:21)
[2017-12-23 16:39] LABS: A/G RATIO. 0.6 (0.7-1.7); ALBUMIN 3 2.5 g/dL (2.9-4.4); ALPHA-1-GLOBULIN 0.5 g/dL (0.0-0.4); BETA GLOBULIN 1.4 g/dL (0.7-1.3); GAMMA GLOBULINS 1.2 g/dL (0.4-1.8); IMMUNOGLOBULIN A 315 mg/dL (87-352); IMMUNOGLOBULIN G 1382 mg/dL (700-1600); IMMUNOGLOBULIN M 68 mg/dL (26-217); MONOCLONAL-SPIKE Not Observed g/dL (Not Observ); PROTEIN TOTAL SERUM 7.2 g/dL (6.0-8.5)
[2017-12-23] MEDS: LEVOFLOXACIN 750 MG/D5W RTU 750 MG/150 ML RTUPB IV SCH (17:40)
--- NOTE | 2017-12-23 18:52 | PDOC PROGRESS REPORT ---
Subjective Progress Note for:: 12/23/17 Subjective:: Patient is seen by the bedside, she complained of neck pain, ear pain, otoscopy of both ears negative. Reason For Visit: PERSISTENT FEVER,TACHYCARDIA,RECURRENT Physical Exam Vital Signs: Temp Pulse Resp BP Pulse Ox 98.2 F 113 H 16 131/68 H 97 12/23/17 15:22 12/23/17 15:22 12/23/17 15:22 12/23/17 15:22 12/23/17 15:22 Intake & Output 12/22/17 12/23/17 12/24/17 06:59 06:59 06:59 Intake Total 2842 918 900 Output Total 550 Balance 2292 918 900 Weight 89.5 kg 90 kg General appearance: PRESENT: no acute distress Eye exam: PRESENT: PERRLA Ear exam: PRESENT: normal external ear exam Respiratory exam: PRESENT: clear to auscultation soraya Cardiovascular exam: PRESENT: +S1, +S2 GI/Abdominal exam: PRESENT: soft Neurological exam: PRESENT: alert, CN II-XII grossly intact Results Laboratory Results: 12/23/17 14:05 12/23/17 14:05 12/23/17 12/23/17 14:05 14:05 WBC 15.1 H RBC 2.88 L Hgb 8.7 L Hct 25.5 L MCV 89 MCH 30.2 MCHC 34.1 RDW 13.0 Plt Count 607 H Seg Neutrophils % 80.3 H Lymphocytes % 11.9 L Monocytes % 5.5 Eosinophils % 1.4 Basophils % 0.9 Absolute Neutrophils 12.1 H Absolute Lymphocytes 1.8 Absolute Monocytes 0.8 Absolute Eosinophils 0.2 Absolute Basophils 0.1 Sodium 137.4 Potassium 3.9 Chloride 99 Carbon Dioxide 28 Anion Gap 10 BUN 8 Creatinine 0.92 Est GFR ( Amer) > 60 Est GFR (Non-Af Amer) > 60 Glucose 195 H Calcium 9.2 12/18/17 18:13 Blood Blood Culture - Final NO GROWTH IN 5 DAYS Impressions: Chest CT 12/18/17 00:00 IMPRESSION: Multifocal dense consolidation and nodularity in the right lower lobe. Mediastinal and hilar lymphadenopathy. Consider pulmonary consultation. Cervical Spine CT 12/23/17 00:00 IMPRESSION: CHRONIC DEGENERATIVE CHANGES. Postsurgical changes as noted above. Other findings as noted above Head CT 12/23/17 00:00 IMPRESSION: No significant intracranial abnormalities were identified. Other findings as noted above EVIDENCE OF ACUTE STROKE: NO. Chest X-Ray 12/23/17 09:54 IMPRESSION: Increasing right lower lobe pneumonia. Assessment & Plan - Diagnosis (1) Cryptogenic organizing pneumonia Is this a current diagnosis for this admission?: Yes (2) Right lower lobe pneumonia Qualifiers: Pneumonia type: due to unspecified organism Qualified Code(s): J18.1 - Lobar pneumonia, unspecified organism Is this a current diagnosis for this admission?: Yes (3) Diabetes mellitus type 2 in obese Is this a current diagnosis for this admission?: Yes (4) Lymphedema Is this a current diagnosis for this admission?: Yes (5) Cervicalgia Is this a current diagnosis for this admission?: Yes Plan: Start opioid therapy for pain control
[2017-12-23] MEDS: CEFTRIAXONE SODIUM 1,000 MG in NORMAL SALINE 50 ML IV SCH (22:18)
[2017-12-24] MEDS: HYDROMORPHONE HCL INJ/PF 2 MG/ML AMPULE IV PRN ×5 (01:26→19:15)
[2017-12-24] MEDS: LANSOPRAZOLE 30 MG TAB.RAP.DR PO SCH (05:35)
[2017-12-24 06:20] LABS: ABSOLUTE BASOPHILS # (AUTO) 0.1 10^3/uL (0.0-0.2); ABSOLUTE EOSINOPHILS # (AUTO) 0.2 10^3/uL (0.0-0.6); ABSOLUTE LYMPHOCYTES (AUTO) 1.7 10^3/uL (0.5-4.7); ABSOLUTE MONOCYTES (AUTO) 0.9 10^3/uL (0.1-1.4); ABSOLUTE NEUT (AUTO) 11.9 10^3/uL (1.7-8.2); BASOPHILS % (AUTO) 0.5 % (0-2); EOSINOPHILS % (AUTO) 1.4 % (0-6); HEMATOCRIT 25.3 % (36.0-47.0); HEMOGLOBIN 8.4 g/dL (12.0-15.5); LYMPHOCYTES % (AUTO) 11.4 % (13-45); MEAN CORPUSCULAR HEMOGLOBIN 30.1 pg (27.0-33.4); MEAN CORPUSCULAR HGB CONC 33.4 g/dL (32.0-36.0); MEAN CORPUSCULAR VOLUME 90 fl (80-97); MONOCYTES % (AUTO) 5.8 % (3-13); PLATELET COUNT 546 10^3/uL (150-450); RED BLOOD COUNT 2.81 10^6/uL (3.72-5.28); RED CELL DISTRIBUTION WIDTH 13.2 % (11.5-14.0); SEGMENTED NEUTROPHILS % (AUTO) 80.9 % (42-78); TOTAL CELLS COUNTED % (AUTO) 100 %; WHITE BLOOD COUNT 14.7 10^3/uL (4.0-10.5)
[2017-12-24 06:39] LABS: ANION GAP 7 (5-19); BLOOD UREA NITROGEN 11 mg/dL (7-20); CALCIUM 8.7 mg/dL (8.4-10.2); CARBON DIOXIDE 32 mmol/L (22-30); CHLORIDE 97 mmol/L (98-107); GLUCOSE 255 mg/dL (75-110); POTASSIUM 4.2 mmol/L (3.6-5.0); SODIUM 135.8 mmol/L (137-145)
[2017-12-24] MEDS: ACETYLCYSTEINE 20% SOLN 800 MG/4 ML VIAL.NEB NEB SCH ×2 (08:44→20:41)
[2017-12-24] MEDS: LEVALBUTEROL HCL NEB 1.25 MG/3 ML AMPUL NEB SCH ×3 (08:44→20:41)
[2017-12-24] MEDS: INSULIN LISPRO 100 UNIT/ML 3 ML VIAL SUBCUT PRN ×4 (09:03→22:26)
--- NOTE | 2017-12-24 09:12 | PDOC PROGRESS REPORT ---
Subjective Progress Note for:: 12/22/17 Subjective:: Feeling a little worse today Reason For Visit: PERSISTENT FEVER,TACHYCARDIA,RECURRENT Physical Exam Vital Signs: Temp Pulse Resp BP Pulse Ox 98.0 F 100 18 105/63 92 12/24/17 08:15 12/24/17 08:15 12/24/17 08:15 12/24/17 08:15 12/24/17 08:15 Intake & Output 12/23/17 12/24/17 12/25/17 06:59 06:59 06:59 Intake Total 918 1150 Balance 918 1150 Weight 90 kg 90.7 kg General appearance: PRESENT: cooperative, disheveled, mild distress Head exam: PRESENT: atraumatic, normocephalic Eye exam: PRESENT: conjunctiva pale, EOMI, PERRLA Mouth exam: PRESENT: moist, tongue midline Neck exam: ABSENT: carotid bruit, JVD, lymphadenopathy, thyromegaly, tracheal deviation, tracheostomy Respiratory exam: PRESENT: decreased breath sounds, prolonged expiratory phas, rales, unlabored. ABSENT: retraction, rhonchi, stridor Cardiovascular exam: PRESENT: RRR, +S1, +S2 Pulses: PRESENT: normal radial pulses GI/Abdominal exam: PRESENT: soft. ABSENT: tenderness Extremities exam: PRESENT: full ROM. ABSENT: calf tenderness, clubbing, joint swelling, pedal edema, +1 edema, +2 edema Musculoskeletal exam: PRESENT: ambulatory. ABSENT: deformity, dislocation Neurological exam: PRESENT: alert, awake Skin exam: PRESENT: dry, warm Results Laboratory Results: 12/24/17 05:30 12/24/17 05:30 12/18/17 12/23/17 12/23/17 18:13 14:05 14:05 WBC 15.1 H RBC 2.88 L Hgb 8.7 L Hct 25.5 L MCV 89 MCH 30.2 MCHC 34.1 RDW 13.0 Plt Count 607 H Seg Neutrophils % 80.3 H Lymphocytes % 11.9 L Monocytes % 5.5 Eosinophils % 1.4 Basophils % 0.9 Absolute Neutrophils 12.1 H Absolute Lymphocytes 1.8 Absolute Monocytes 0.8 Absolute Eosinophils 0.2 Absolute Basophils 0.1 Sodium 137.4 Potassium 3.9 Chloride 99 Carbon Dioxide 28 Anion Gap 10 BUN 8 Creatinine 0.92 Est GFR ( Amer) > 60 Est GFR (Non-Af Amer) > 60 Glucose 195 H Calcium 9.2 Total Protein 7.2 Albumin 2.5 L 12/24/17 12/24/17 05:30 05:30 WBC 14.7 H RBC 2.81 L Hgb 8.4 L Hct 25.3 L MCV 90 MCH 30.1 MCHC 33.4 RDW 13.2 Plt Count 546 H Seg Neutrophils % 80.9 H Lymphocytes % 11.4 L Monocytes % 5.8 Eosinophils % 1.4 Basophils % 0.5 Absolute Neutrophils 11.9 H Absolute Lymphocytes 1.7 Absolute Monocytes 0.9 Absolute Eosinophils 0.2 Absolute Basophils 0.1 Sodium 135.8 L Potassium 4.2 Chloride 97 L Carbon Dioxide 32 H Anion Gap 7 BUN 11 Creatinine 1.03 Est GFR ( Amer) > 60 Est GFR (Non-Af Amer) 55 L Glucose 255 H Calcium 8.7 Total Protein Albumin 12/18/17 19:00 Blood Blood Culture - Final NO GROWTH IN 5 DAYS 12/18/17 18:13 Blood Blood Culture - Final NO GROWTH IN 5 DAYS Impressions: Chest CT 12/18/17 00:00 IMPRESSION: Multifocal dense consolidation and nodularity in the right lower lobe. Mediastinal and hilar lymphadenopathy. Consider pulmonary consultation. Cervical Spine CT 12/23/17 00:00 IMPRESSION: CHRONIC DEGENERATIVE CHANGES. Postsurgical changes as noted above. Other findings as noted above Head CT 12/23/17 00:00 IMPRESSION: No significant intracranial abnormalities were identified. Other findings as noted above EVIDENCE OF ACUTE STROKE: NO. Chest X-Ray 12/23/17 09:54 IMPRESSION: Increasing right lower lobe pneumonia. Assessment & Plan - Diagnosis (1) Right lower lobe pneumonia Qualifiers: Pneumonia type: due to unspecified organism Qualified Code(s): J18.1 - Lobar pneumonia, unspecified organism Is this a current diagnosis for this admission?: Yes Plan: No etiology long-standing history is been treated on several occasions fortunately physiotherapy and mucolytics are helping her expectorate large amounts of productive sputum (2) Diabetes mellitus type 2 in obese Is this a current diagnosis for this admission?: Yes (3) Anemia Qualifiers: Anemia type: other cause Other causes of anemia: other cause, not classified Qualified Code(s): D64.89 - Other specified anemias Is this a current diagnosis for this admission?: Yes Plan: Iron deficiency acknowledged reticulocyte count elevatedt
[2017-12-24] MEDS: METFORMIN HCL 500 MG TABLET PO SCH ×2 (09:14→19:04)
[2017-12-24] MEDS: VANCOMYCIN HCL 1,500 MG in DEXTROSE 5%-WATER 250 ML IV SCH ×2 (09:42→20:43)
[2017-12-24] MEDS: KETOROLAC TROMETHAMINE INJ/PF 30 MG/1 ML SDV IV SCH ×2 (11:23→19:03)
[2017-12-24] MEDS: SITAGLIPTIN PHOSPHATE 50 MG TABLET PO SCH (11:25)
[2017-12-24] MEDS: BENZONATATE 100 MG CAPSULE PO PRN ×2 (11:27→19:01)
[2017-12-24] MEDS: HYDROCHLOROTHIAZIDE 25 MG TABLET PO SCH (11:27)
[2017-12-24] MEDS: MULTIVITAMIN TABLET PO SCH (11:27)
[2017-12-24] MEDS: FERROUS SULFATE 325 MG TABLET PO SCH ×2 (11:27→19:01)
[2017-12-24] MEDS: LISINOPRIL 10 MG TABLET PO SCH (11:28)
[2017-12-24] MEDS: LEVOFLOXACIN 750 MG/D5W RTU 750 MG/150 ML RTUPB IV SCH (19:04)
--- NOTE | 2017-12-24 20:07 | PDOC PROGRESS REPORT ---
Subjective Progress Note for:: 12/24/17 Subjective:: Patient seen by the bedside, she still symptomatic Reason For Visit: PERSISTENT FEVER,TACHYCARDIA,RECURRENT Physical Exam Vital Signs: Temp Pulse Resp BP Pulse Ox 98.2 F 97 20 123/68 93 12/24/17 11:13 12/24/17 14:02 12/24/17 14:02 12/24/17 11:13 12/24/17 14:02 Intake & Output 12/23/17 12/24/17 12/25/17 06:59 06:59 06:59 Intake Total 918 1350 1125 Balance 918 1350 1125 Weight 90 kg 90.7 kg General appearance: PRESENT: no acute distress Respiratory exam: PRESENT: rhonchi Cardiovascular exam: PRESENT: +S1, +S2 GI/Abdominal exam: PRESENT: soft Neurological exam: PRESENT: alert Results Laboratory Results: 12/24/17 05:30 12/24/17 05:30 12/18/17 12/24/17 12/24/17 18:13 05:30 05:30 WBC 14.7 H RBC 2.81 L Hgb 8.4 L Hct 25.3 L MCV 90 MCH 30.1 MCHC 33.4 RDW 13.2 Plt Count 546 H Seg Neutrophils % 80.9 H Lymphocytes % 11.4 L Monocytes % 5.8 Eosinophils % 1.4 Basophils % 0.5 Absolute Neutrophils 11.9 H Absolute Lymphocytes 1.7 Absolute Monocytes 0.9 Absolute Eosinophils 0.2 Absolute Basophils 0.1 Sodium 135.8 L Potassium 4.2 Chloride 97 L Carbon Dioxide 32 H Anion Gap 7 BUN 11 Creatinine 1.03 Est GFR ( Amer) > 60 Est GFR (Non-Af Amer) 55 L Glucose 255 H Calcium 8.7 Total Protein 7.2 Albumin 2.5 L 12/18/17 19:00 Blood Blood Culture - Final NO GROWTH IN 5 DAYS 12/18/17 18:13 Blood Blood Culture - Final NO GROWTH IN 5 DAYS Impressions: Chest CT 12/18/17 00:00 IMPRESSION: Multifocal dense consolidation and nodularity in the right lower lobe. Mediastinal and hilar lymphadenopathy. Consider pulmonary consultation. Cervical Spine CT 12/23/17 00:00 IMPRESSION: CHRONIC DEGENERATIVE CHANGES. Postsurgical changes as noted above. Other findings as noted above Head CT 12/23/17 00:00 IMPRESSION: No significant intracranial abnormalities were identified. Other findings as noted above EVIDENCE OF ACUTE STROKE: NO. Chest X-Ray 12/23/17 09:54 IMPRESSION: Increasing right lower lobe pneumonia. Assessment & Plan - Diagnosis (1) Cryptogenic organizing pneumonia Is this a current diagnosis for this admission?: Yes (2) Right lower lobe pneumonia Qualifiers: Pneumonia type: due to unspecified organism Qualified Code(s): J18.1 - Lobar pneumonia, unspecified organism Is this a current diagnosis for this admission?: Yes (3) Diabetes mellitus type 2 in obese Is this a current diagnosis for this admission?: Yes (4) Lymphedema Is this a current diagnosis for this admission?: Yes (5) Cervicalgia Is this a current diagnosis for this admission?: Yes
[2017-12-24 20:27] LABS: VANCOMYCIN,TROUGH 28.5 ug/mL (5.0-20.0)
[2017-12-24] MEDS: TRAMADOL HCL 50 MG TABLET PO PRN (22:26)
[2017-12-24] MEDS ORDERED: CEFTRIAXONE INJ 500 MG VIAL ONE (22:32)
[2017-12-25] MEDS: CEFTRIAXONE SODIUM 1,000 MG in NORMAL SALINE 50 ML IV SCH (05:22)
[2017-12-25] MEDS: KETOROLAC TROMETHAMINE INJ/PF 30 MG/1 ML SDV IV SCH ×2 (05:25→06:21)
[2017-12-25] MEDS: LANSOPRAZOLE 30 MG TAB.RAP.DR PO SCH (06:21)
[2017-12-25] MEDS: LEVALBUTEROL HCL NEB 1.25 MG/3 ML AMPUL NEB SCH ×3 (08:54→19:49)
[2017-12-25] MEDS: ACETYLCYSTEINE 20% SOLN 800 MG/4 ML VIAL.NEB NEB SCH ×2 (09:04→19:49)
[2017-12-25] MEDS: INSULIN LISPRO 100 UNIT/ML 3 ML VIAL SUBCUT PRN ×4 (09:17→23:02)
[2017-12-25] MEDS: HYDROMORPHONE HCL INJ/PF 2 MG/ML AMPULE IV PRN ×4 (09:17→22:59)
[2017-12-25] MEDS ORDERED: (PENDING PHARMACY ID) (Exenatide Microspheres [Bydureon Bcise] 2 MG) SL SCH (10:00)
[2017-12-25] MEDS: SITAGLIPTIN PHOSPHATE 50 MG TABLET PO SCH (11:24)
[2017-12-25] MEDS: LISINOPRIL 10 MG TABLET PO SCH (11:24)
[2017-12-25] MEDS: BENZONATATE 100 MG CAPSULE PO PRN ×2 (11:24→18:55)
[2017-12-25] MEDS: HYDROCHLOROTHIAZIDE 25 MG TABLET PO SCH (11:25)
[2017-12-25] MEDS: METFORMIN HCL 500 MG TABLET PO SCH ×2 (11:25→18:52)
[2017-12-25] MEDS: MULTIVITAMIN TABLET PO SCH (11:25)
[2017-12-25] MEDS: FERROUS SULFATE 325 MG TABLET PO SCH ×2 (11:25→18:55)
[2017-12-25] MEDS: ONDANSETRON HCL INJ/PF 4 MG/2 ML SDV IV PRN ×2 (11:25→18:55)
[2017-12-25] MEDS: LEVOFLOXACIN 750 MG/D5W RTU 750 MG/150 ML RTUPB IV SCH (18:56)
[2017-12-25] MEDS: VANCOMYCIN HCL 1,000 MG in DEXTROSE 5%-WATER 250 ML IV SCH (19:01)
--- NOTE | 2017-12-25 20:57 | PDOC PROGRESS REPORT ---
Subjective Progress Note for:: 12/25/17 Subjective:: Patient seen by the bedside she was seen by pulmonary, continue present treatment Reason For Visit: PERSISTENT FEVER,TACHYCARDIA,RECURRENT Physical Exam Vital Signs: Temp Pulse Resp BP Pulse Ox 97.9 F 95 18 119/69 95 12/25/17 08:18 12/25/17 19:50 12/25/17 19:50 12/25/17 08:18 12/25/17 19:50 Intake & Output 12/24/17 12/25/17 12/26/17 06:59 06:59 06:59 Intake Total 1350 1525 799 Balance 1350 1525 799 Weight 90.7 kg 90.6 kg General appearance: PRESENT: no acute distress Eye exam: PRESENT: PERRLA Respiratory exam: PRESENT: clear to auscultation soraya Cardiovascular exam: PRESENT: +S1, +S2 GI/Abdominal exam: PRESENT: soft Neurological exam: PRESENT: alert Results Laboratory Results: 12/24/17 05:30 12/24/17 05:30 Impressions: Chest CT 12/18/17 00:00 IMPRESSION: Multifocal dense consolidation and nodularity in the right lower lobe. Mediastinal and hilar lymphadenopathy. Consider pulmonary consultation. Cervical Spine CT 12/23/17 00:00 IMPRESSION: CHRONIC DEGENERATIVE CHANGES. Postsurgical changes as noted above. Other findings as noted above Head CT 12/23/17 00:00 IMPRESSION: No significant intracranial abnormalities were identified. Other findings as noted above EVIDENCE OF ACUTE STROKE: NO. Chest X-Ray 12/23/17 09:54 IMPRESSION: Increasing right lower lobe pneumonia. Assessment & Plan - Diagnosis (1) Cryptogenic organizing pneumonia Is this a current diagnosis for this admission?: Yes (2) Right lower lobe pneumonia Qualifiers: Pneumonia type: due to unspecified organism Qualified Code(s): J18.1 - Lobar pneumonia, unspecified organism Is this a current diagnosis for this admission?: Yes (3) Diabetes mellitus type 2 in obese Is this a current diagnosis for this admission?: Yes (4) Lymphedema Is this a current diagnosis for this admission?: Yes (5) Cervicalgia Is this a current diagnosis for this admission?: Yes
[2017-12-25] MEDS: CEFTRIAXONE SODIUM 1,000 MG in DEXTROSE 5%-WATER 50 ML IV SCH (23:05)
[2017-12-26] MEDS: VANCOMYCIN HCL 1,000 MG in DEXTROSE 5%-WATER 250 ML IV SCH ×2 (05:10→17:06)
[2017-12-26] MEDS: LANSOPRAZOLE 30 MG TAB.RAP.DR PO SCH (05:14)
[2017-12-26] MEDS: INSULIN LISPRO 100 UNIT/ML 3 ML VIAL SUBCUT PRN ×4 (07:43→21:56)
[2017-12-26] MEDS: METFORMIN HCL 500 MG TABLET PO SCH ×2 (07:47→17:01)
[2017-12-26] MEDS: ACETYLCYSTEINE 20% SOLN 800 MG/4 ML VIAL.NEB NEB SCH ×2 (08:18→20:53)
[2017-12-26] MEDS: LEVALBUTEROL HCL NEB 1.25 MG/3 ML AMPUL NEB SCH ×3 (08:18→20:52)
[2017-12-26] MEDS: LISINOPRIL 10 MG TABLET PO SCH (10:02)
[2017-12-26] MEDS: HYDROCHLOROTHIAZIDE 25 MG TABLET PO SCH (10:02)
[2017-12-26] MEDS: FERROUS SULFATE 325 MG TABLET PO SCH ×2 (10:03→17:05)
[2017-12-26] MEDS: MULTIVITAMIN TABLET PO SCH (10:03)
[2017-12-26] MEDS: TRAMADOL HCL 50 MG TABLET PO PRN ×2 (10:03→17:05)
[2017-12-26] MEDS: SITAGLIPTIN PHOSPHATE 50 MG TABLET PO SCH (10:04)
--- NOTE | 2017-12-26 16:08 | PDOC PROGRESS REPORT ---
Subjective Progress Note for:: 12/26/17 Subjective:: Patient reported productive coughing, nausea and poor po intake. No chest pain or palpitation. Remain on IV antibiotic therapy. Reason For Visit: PERSISTENT FEVER,TACHYCARDIA,RECURRENT Physical Exam Vital Signs: Temp Pulse Resp BP Pulse Ox 98.0 F 108 H 18 138/74 H 95 12/26/17 15:09 12/26/17 15:09 12/26/17 15:09 12/26/17 15:09 12/26/17 15:09 Intake & Output 12/25/17 12/26/17 12/27/17 06:59 06:59 06:59 Intake Total 1525 1049 687 Balance 1525 1049 687 Weight 90.6 kg 92.1 kg General appearance: PRESENT: no acute distress, obese Head exam: PRESENT: atraumatic, normocephalic Eye exam: PRESENT: conjunctiva pink, EOMI, PERRLA. ABSENT: scleral icterus Ear exam: PRESENT: normal external ear exam Mouth exam: PRESENT: moist Respiratory exam: PRESENT: decreased breath sounds - at lung bases Cardiovascular exam: PRESENT: RRR. ABSENT: diastolic murmur, rubs, systolic murmur Vascular exam: PRESENT: normal capillary refill. ABSENT: pallor GI/Abdominal exam: PRESENT: normal bowel sounds, soft. ABSENT: distended, guarding, mass, organolmegaly, rebound, tenderness Extremities exam: ABSENT: pedal edema Musculoskeletal exam: PRESENT: normal inspection Neurological exam: PRESENT: alert, awake, oriented to person, oriented to place , oriented to time, oriented to situation, CN II-XII grossly intact. ABSENT: motor sensory deficit Psychiatric exam: PRESENT: appropriate affect, normal mood. ABSENT: homicidal ideation, suicidal ideation Results Laboratory Results: 12/24/17 05:30 12/24/17 05:30 Impressions: Chest CT 12/18/17 00:00 IMPRESSION: Multifocal dense consolidation and nodularity in the right lower lobe. Mediastinal and hilar lymphadenopathy. Consider pulmonary consultation. Cervical Spine CT 12/23/17 00:00 IMPRESSION: CHRONIC DEGENERATIVE CHANGES. Postsurgical changes as noted above. Other findings as noted above Head CT 12/23/17 00:00 IMPRESSION: No significant intracranial abnormalities were identified. Other findings as noted above EVIDENCE OF ACUTE STROKE: NO. Chest X-Ray 12/23/17 09:54 IMPRESSION: Increasing right lower lobe pneumonia. Assessment & Plan - Diagnosis (1) Right lower lobe pneumonia Qualifiers: Pneumonia type: due to unspecified organism Qualified Code(s): J18.1 - Lobar pneumonia, unspecified organism Is this a current diagnosis for this admission?: Yes Plan: Continue current antibiotic medication management. Obtain CT scan of chest with contrast for further evaluation of her worsening airspace disease process with nodular lung changes. (3) Diabetes mellitus type 2 in obese Is this a current diagnosis for this admission?: Yes Plan: Continue current medication and dietary management. (4) Anemia Qualifiers: Anemia type: other cause Other causes of anemia: other cause, not classified Qualified Code(s): D64.89 - Other specified anemias Is this a current diagnosis for this admission?: Yes Plan: Probably due to ongoing infection. Possible underlying malignancy cannot be ruled out in view of persistent consolidation with nodular lung changes. - Time Time Spent with patient: 25-34 minutes Medications reviewed and adjusted accordingly: Yes Anticipated discharge: Home Within: Other - Inpatient Certification Based on my medical assessment, after consideration of the patient's comorbidities, presenting symptoms, or acuity I expect that the services needed warrant INPATIENT care.: Yes I certify that my determination is in accordance with my understanding of Medicare's requirements for reasonable and necessary INPATIENT services [42 CFR 412.3e].: Yes Medical Necessity: Need Close Monitoring Due to Risk of Patient Decompensation, Need For IV Fluids, Need For Continuous Telemetry Monitoring, Need for IV Antibiotics, Risk of Complication if Not Cared For in Hospital Post Hospital Care: D/C Field Director Documentation - Plan Summary Plan Summary: See covering attending physician orders.
[2017-12-26] MEDS: LEVOFLOXACIN 750 MG/D5W RTU 750 MG/150 ML RTUPB IV SCH (17:06)
--- NOTE | 2017-12-26 17:09 | PDOC PROGRESS REPORT ---
Subjective Progress Note for:: 12/23/17 Subjective:: Feeling a little worse today Reason For Visit: PERSISTENT FEVER,TACHYCARDIA,RECURRENT Physical Exam Vital Signs: Temp Pulse Resp BP Pulse Ox 98.0 F 100 18 105/63 92 12/24/17 08:15 12/24/17 08:15 12/24/17 08:15 12/24/17 08:15 12/24/17 08:15 Intake & Output 12/23/17 12/24/17 12/25/17 06:59 06:59 06:59 Intake Total 918 1150 Balance 918 1150 Weight 90 kg 90.7 kg General appearance: PRESENT: cooperative, disheveled Head exam: PRESENT: atraumatic, normocephalic Eye exam: PRESENT: conjunctiva pale, EOMI, PERRLA. ABSENT: nystagmus, scleral icterus Mouth exam: PRESENT: moist, neck supple, tongue midline Neck exam: ABSENT: carotid bruit, JVD, lymphadenopathy, thyromegaly Respiratory exam: PRESENT: decreased breath sounds, rales, unlabored. ABSENT: retraction, rhonchi, stridor Cardiovascular exam: PRESENT: RRR, +S1, +S2 Pulses: PRESENT: normal radial pulses GI/Abdominal exam: PRESENT: normal bowel sounds, soft. ABSENT: tenderness Extremities exam: ABSENT: calf tenderness, clubbing, +1 edema, +2 edema Musculoskeletal exam: PRESENT: ambulatory. ABSENT: deformity, dislocation Neurological exam: PRESENT: alert, awake Skin exam: PRESENT: dry, warm Results Laboratory Results: 12/24/17 05:30 12/24/17 05:30 12/18/17 12/23/17 12/23/17 18:13 14:05 14:05 WBC 15.1 H RBC 2.88 L Hgb 8.7 L Hct 25.5 L MCV 89 MCH 30.2 MCHC 34.1 RDW 13.0 Plt Count 607 H Seg Neutrophils % 80.3 H Lymphocytes % 11.9 L Monocytes % 5.5 Eosinophils % 1.4 Basophils % 0.9 Absolute Neutrophils 12.1 H Absolute Lymphocytes 1.8 Absolute Monocytes 0.8 Absolute Eosinophils 0.2 Absolute Basophils 0.1 Sodium 137.4 Potassium 3.9 Chloride 99 Carbon Dioxide 28 Anion Gap 10 BUN 8 Creatinine 0.92 Est GFR ( Amer) > 60 Est GFR (Non-Af Amer) > 60 Glucose 195 H Calcium 9.2 Total Protein 7.2 Albumin 2.5 L 12/24/17 12/24/17 05:30 05:30 WBC 14.7 H RBC 2.81 L Hgb 8.4 L Hct 25.3 L MCV 90 MCH 30.1 MCHC 33.4 RDW 13.2 Plt Count 546 H Seg Neutrophils % 80.9 H Lymphocytes % 11.4 L Monocytes % 5.8 Eosinophils % 1.4 Basophils % 0.5 Absolute Neutrophils 11.9 H Absolute Lymphocytes 1.7 Absolute Monocytes 0.9 Absolute Eosinophils 0.2 Absolute Basophils 0.1 Sodium 135.8 L Potassium 4.2 Chloride 97 L Carbon Dioxide 32 H Anion Gap 7 BUN 11 Creatinine 1.03 Est GFR ( Amer) > 60 Est GFR (Non-Af Amer) 55 L Glucose 255 H Calcium 8.7 Total Protein Albumin 12/18/17 19:00 Blood Blood Culture - Final NO GROWTH IN 5 DAYS 12/18/17 18:13 Blood Blood Culture - Final NO GROWTH IN 5 DAYS Impressions: Chest CT 12/18/17 00:00 IMPRESSION: Multifocal dense consolidation and nodularity in the right lower lobe. Mediastinal and hilar lymphadenopathy. Consider pulmonary consultation. Cervical Spine CT 12/23/17 00:00 IMPRESSION: CHRONIC DEGENERATIVE CHANGES. Postsurgical changes as noted above. Other findings as noted above Head CT 12/23/17 00:00 IMPRESSION: No significant intracranial abnormalities were identified. Other findings as noted above EVIDENCE OF ACUTE STROKE: NO. Chest X-Ray 12/23/17 09:54 IMPRESSION: Increasing right lower lobe pneumonia. Assessment & Plan - Diagnosis (1) Right lower lobe pneumonia Qualifiers: Pneumonia type: due to unspecified organism Qualified Code(s): J18.1 - Lobar pneumonia, unspecified organism Is this a current diagnosis for this admission?: Yes Plan: No etiology long-standing history is been treated on several occasions fortunately physiotherapy and mucolytics are helping her expectorate large amounts of productive sputum (2) Diabetes mellitus type 2 in obese Is this a current diagnosis for this admission?: Yes Plan: Stop prednisone for the time being this may in and of itself spuriously elevated white count. (3) Anemia Qualifiers: Anemia type: other cause Other causes of anemia: other cause, not classified Qualified Code(s): D64.89 - Other specified anemias Is this a current diagnosis for this admission?: Yes
[2017-12-26] MEDS: BENZONATATE 100 MG CAPSULE PO PRN (17:11)
[2017-12-26] MEDS: ACETAMINOPHEN 325 MG TABLET PO PRN (17:13)
--- NOTE | 2017-12-26 17:22 | PDOC PROGRESS REPORT ---
Subjective Progress Note for:: 12/22/17 Subjective:: A little bit better Reason For Visit: PERSISTENT FEVER,TACHYCARDIA,RECURRENT Physical Exam Vital Signs: Temp Pulse Resp BP Pulse Ox 98.0 F 100 18 105/63 92 12/24/17 08:15 12/24/17 08:15 12/24/17 08:15 12/24/17 08:15 12/24/17 08:15 Intake & Output 12/23/17 12/24/17 12/25/17 06:59 06:59 06:59 Intake Total 918 1150 Balance 918 1150 Weight 90 kg 90.7 kg General appearance: PRESENT: no acute distress, cooperative, disheveled Head exam: PRESENT: atraumatic, normocephalic Eye exam: PRESENT: conjunctiva pale, EOMI, PERRLA. ABSENT: nystagmus, scleral icterus Mouth exam: PRESENT: moist, neck supple, tongue midline Neck exam: ABSENT: carotid bruit, JVD, lymphadenopathy, thyromegaly, tracheal deviation, tracheostomy Respiratory exam: PRESENT: decreased breath sounds, rales, rhonchi, unlabored. ABSENT: retraction, stridor Cardiovascular exam: PRESENT: RRR, +S1 Pulses: PRESENT: normal radial pulses GI/Abdominal exam: PRESENT: soft. ABSENT: tenderness Extremities exam: ABSENT: calf tenderness, clubbing, +1 edema, +2 edema Musculoskeletal exam: PRESENT: ambulatory. ABSENT: deformity, dislocation Neurological exam: PRESENT: alert, awake Psychiatric exam: PRESENT: normal mood Skin exam: PRESENT: dry, warm Results Laboratory Results: 12/24/17 05:30 12/24/17 05:30 12/18/17 12/23/17 12/23/17 18:13 14:05 14:05 WBC 15.1 H RBC 2.88 L Hgb 8.7 L Hct 25.5 L MCV 89 MCH 30.2 MCHC 34.1 RDW 13.0 Plt Count 607 H Seg Neutrophils % 80.3 H Lymphocytes % 11.9 L Monocytes % 5.5 Eosinophils % 1.4 Basophils % 0.9 Absolute Neutrophils 12.1 H Absolute Lymphocytes 1.8 Absolute Monocytes 0.8 Absolute Eosinophils 0.2 Absolute Basophils 0.1 Sodium 137.4 Potassium 3.9 Chloride 99 Carbon Dioxide 28 Anion Gap 10 BUN 8 Creatinine 0.92 Est GFR ( Amer) > 60 Est GFR (Non-Af Amer) > 60 Glucose 195 H Calcium 9.2 Total Protein 7.2 Albumin 2.5 L 12/24/17 12/24/17 05:30 05:30 WBC 14.7 H RBC 2.81 L Hgb 8.4 L Hct 25.3 L MCV 90 MCH 30.1 MCHC 33.4 RDW 13.2 Plt Count 546 H Seg Neutrophils % 80.9 H Lymphocytes % 11.4 L Monocytes % 5.8 Eosinophils % 1.4 Basophils % 0.5 Absolute Neutrophils 11.9 H Absolute Lymphocytes 1.7 Absolute Monocytes 0.9 Absolute Eosinophils 0.2 Absolute Basophils 0.1 Sodium 135.8 L Potassium 4.2 Chloride 97 L Carbon Dioxide 32 H Anion Gap 7 BUN 11 Creatinine 1.03 Est GFR ( Amer) > 60 Est GFR (Non-Af Amer) 55 L Glucose 255 H Calcium 8.7 Total Protein Albumin 12/18/17 19:00 Blood Blood Culture - Final NO GROWTH IN 5 DAYS 12/18/17 18:13 Blood Blood Culture - Final NO GROWTH IN 5 DAYS Impressions: Chest CT 12/18/17 00:00 IMPRESSION: Multifocal dense consolidation and nodularity in the right lower lobe. Mediastinal and hilar lymphadenopathy. Consider pulmonary consultation. Cervical Spine CT 12/23/17 00:00 IMPRESSION: CHRONIC DEGENERATIVE CHANGES. Postsurgical changes as noted above. Other findings as noted above Head CT 12/23/17 00:00 IMPRESSION: No significant intracranial abnormalities were identified. Other findings as noted above EVIDENCE OF ACUTE STROKE: NO. Chest X-Ray 12/23/17 09:54 IMPRESSION: Increasing right lower lobe pneumonia. Assessment & Plan - Diagnosis (1) Right lower lobe pneumonia Qualifiers: Pneumonia type: due to unspecified organism Qualified Code(s): J18.1 - Lobar pneumonia, unspecified organism Is this a current diagnosis for this admission?: Yes Plan: No etiology long-standing history is been treated on several occasions fortunately chest physiotherapy and mucolytics are helping her expectorate large amounts of productive sputum (2) Diabetes mellitus type 2 in obese Is this a current diagnosis for this admission?: Yes (3) Anemia Qualifiers: Anemia type: other cause Other causes of anemia: other cause, not classified Qualified Code(s): D64.89 - Other specified anemias Is this a current diagnosis for this admission?: Yes
--- NOTE | 2017-12-26 17:29 | PDOC PROGRESS REPORT ---
Subjective Progress Note for:: 12/25/17 Subjective:: Slightly better today Reason For Visit: PERSISTENT FEVER,TACHYCARDIA,RECURRENT Physical Exam Vital Signs: Temp Pulse Resp BP Pulse Ox 98.0 F 108 H 18 138/74 H 95 12/26/17 15:09 12/26/17 15:09 12/26/17 15:09 12/26/17 15:09 12/26/17 15:09 Intake & Output 12/25/17 12/26/17 12/27/17 06:59 06:59 06:59 Intake Total 1525 1049 687 Balance 1525 1049 687 Weight 90.6 kg 92.1 kg General appearance: PRESENT: no acute distress, cooperative, disheveled Head exam: PRESENT: atraumatic, normocephalic Eye exam: PRESENT: conjunctiva pale, EOMI, PERRLA. ABSENT: scleral icterus Mouth exam: PRESENT: moist, neck supple, tongue midline Neck exam: ABSENT: carotid bruit, JVD, lymphadenopathy, thyromegaly, tracheal deviation, tracheostomy Respiratory exam: PRESENT: decreased breath sounds, rales, rhonchi, unlabored. ABSENT: retraction, stridor Pulses: PRESENT: normal radial pulses GI/Abdominal exam: PRESENT: soft. ABSENT: tenderness Extremities exam: ABSENT: calf tenderness, clubbing Musculoskeletal exam: PRESENT: ambulatory. ABSENT: deformity, dislocation Neurological exam: PRESENT: alert, awake Skin exam: PRESENT: dry, warm Results Laboratory Results: 12/24/17 05:30 12/24/17 05:30 Impressions: Cervical Spine CT 12/23/17 00:00 IMPRESSION: CHRONIC DEGENERATIVE CHANGES. Postsurgical changes as noted above. Other findings as noted above Head CT 12/23/17 00:00 IMPRESSION: No significant intracranial abnormalities were identified. Other findings as noted above EVIDENCE OF ACUTE STROKE: NO. Chest X-Ray 12/23/17 09:54 IMPRESSION: Increasing right lower lobe pneumonia. Assessment & Plan - Diagnosis (1) Right lower lobe pneumonia Qualifiers: Pneumonia type: due to unspecified organism Qualified Code(s): J18.1 - Lobar pneumonia, unspecified organism Is this a current diagnosis for this admission?: Yes Plan: No etiology long-standing history is been treated on several occasions fortunately chest physiotherapy and mucolytics are helping her expectorate large amounts of productive sputum (2) Diabetes mellitus type 2 in obese Is this a current diagnosis for this admission?: Yes Plan: Stop prednisone for the time being this may in and of itself spuriously elevated white count. (3) Anemia Qualifiers: Anemia type: other cause Other causes of anemia: other cause, not classified Qualified Code(s): D64.89 - Other specified anemias Is this a current diagnosis for this admission?: Yes Plan: Iron deficiency acknowledged reticulocyte count elevatedt
--- NOTE | 2017-12-26 17:34 | PDOC PROGRESS REPORT ---
Subjective Progress Note for:: 12/26/17 Subjective:: [place] better yesterday actually ambulated around the lee Reason For Visit: PERSISTENT FEVER,TACHYCARDIA,RECURRENT Physical Exam Vital Signs: Temp Pulse Resp BP Pulse Ox 98.0 F 108 H 18 138/74 H 95 12/26/17 15:09 12/26/17 15:09 12/26/17 15:09 12/26/17 15:09 12/26/17 15:09 Intake & Output 12/25/17 12/26/17 12/27/17 06:59 06:59 06:59 Intake Total 1525 1049 687 Balance 1525 1049 687 Weight 90.6 kg 92.1 kg General appearance: PRESENT: no acute distress, cooperative, disheveled Head exam: PRESENT: atraumatic, normocephalic Eye exam: PRESENT: conjunctiva pale, EOMI, PERRLA, scleral icterus Mouth exam: PRESENT: moist, neck supple, tongue midline Neck exam: ABSENT: carotid bruit, JVD, lymphadenopathy, thyromegaly, tracheal deviation, tracheostomy Respiratory exam: PRESENT: decreased breath sounds, rales, rhonchi, unlabored. ABSENT: retraction, stridor Cardiovascular exam: PRESENT: RRR, +S1, +S2 Pulses: PRESENT: normal radial pulses GI/Abdominal exam: PRESENT: soft. ABSENT: tenderness Extremities exam: PRESENT: full ROM. ABSENT: calf tenderness, clubbing, pedal edema Musculoskeletal exam: PRESENT: ambulatory. ABSENT: deformity, dislocation Neurological exam: PRESENT: alert, awake Skin exam: PRESENT: dry, warm Results Laboratory Results: 12/24/17 05:30 12/24/17 05:30 Impressions: Cervical Spine CT 12/23/17 00:00 IMPRESSION: CHRONIC DEGENERATIVE CHANGES. Postsurgical changes as noted above. Other findings as noted above Head CT 12/23/17 00:00 IMPRESSION: No significant intracranial abnormalities were identified. Other findings as noted above EVIDENCE OF ACUTE STROKE: NO. Chest X-Ray 12/23/17 09:54 IMPRESSION: Increasing right lower lobe pneumonia. Assessment & Plan - Diagnosis (1) Right lower lobe pneumonia Qualifiers: Pneumonia type: due to unspecified organism Qualified Code(s): J18.1 - Lobar pneumonia, unspecified organism Is this a current diagnosis for this admission?: Yes Plan: No etiology long-standing history is been treated on several occasions fortunately chest physiotherapy and mucolytics are helping her expectorate large amounts of productive sputum (2) Diabetes mellitus type 2 in obese Is this a current diagnosis for this admission?: Yes Plan: Stop prednisone for the time being this may in and of itself spuriously elevated white count. (3) Anemia Qualifiers: Anemia type: other cause Other causes of anemia: other cause, not classified Qualified Code(s): D64.89 - Other specified anemias Is this a current diagnosis for this admission?: Yes Plan: Iron deficiency acknowledged reticulocyte count elevatedt
--- NOTE | 2017-12-26 20:14 | RADIOLOGY REPORT (SQ) ---
EXAM DESCRIPTION: CT CHEST WITH COMPLETED DATE/TIME: 12/26/2017 4:51 pm REASON FOR STUDY: Worsening right LL pneumonia with nodular changes COMPARISON: 12/18/2017. TECHNIQUE: CT scan of the chest performed using helical scanning technique with dynamic intravenous contrast injection. Images reviewed with lung, soft tissue and bone windows. Reconstructed coronal and sagittal MPR and MIP images reviewed. All images stored on PACS. All CT scanners at this facility use dose modulation, iterative reconstruction, and/or weight based d osing when appropriate to reduce radiation dose to as low as reasonably achievable (ALARA). [facility]: Dose Right [facility]: CareDose [facility]: Dose Right [facility]: Teradose 4D [facility]: Blottr CONTRAST TYPE AND DOSE: contrast/concentration: Isovue 350.00 mg/ml; Total Contrast Delivered: 80.0 ml; Total Saline Delivered: 55.0 ml RENAL FUNCTION: Creatinine 1.0 RADIATION DOSE: CT Rad equipment meets quality standard of care and radiation dose reduction techniq ues were employed. CTDIvol: 18.5 mGy. DLP: 762 mGy-cm. . LIMITATIONS: None. FINDINGS: LUNGS AND PLEURA: Dense consolidation right lower lobe, slightly worse. Nodular component of airspace opacification also persists. Now partially obscured by further generalized airspace dis ease. Right middle lobe and right upper lobe and generally the left lobe look clear. HILAR AND MEDIASTINAL STRUCTURES: Probable right hilar adenopathy, node measuring up to 1.5 cm in jeffrey rt axis. Minimal pebbles tissue in the left hilum. Additional subcarinal and paratracheal subcentimet er nodes. HEART AND VASCULAR STRUCTURES: Mild cardiomegaly. Trace pericardial fluid. No aortic aneurysm or gr oss central pulmonary embolus. HARDWARE: Left central line. UPPER ABDOMEN: Probable cholelithiasis. THYROID AND OTHER SOFT TISSUES: Generalized thyromegaly. BONES: Generally intact. OTHER: No other significant finding. IMPRESSION: 1. Progressive more confluent right lower lobe consolidation. 2. Adenopathy, similar to prior. TECHNICAL DOCUMENTATION: JOB ID: [id number] Quality ID # [id number]: Final reports with documentation of one or more dose reduction techniques (e.g., Au tomated exposure control, adjustment of the mA and/or kV according to patient size, use of iterative reconstruction technique) 2010 [employer]- All Rights Reserved Reading location - IP[facility]workstation name: [email or web address]
[2017-12-26] MEDS: CEFTRIAXONE SODIUM 1,000 MG in DEXTROSE 5%-WATER 50 ML IV SCH (21:04)
[2017-12-26] MEDS: ONDANSETRON HCL INJ/PF 4 MG/2 ML SDV IV PRN (23:12)
[2017-12-27] MEDS: HYDROMORPHONE HCL INJ/PF 2 MG/ML AMPULE IV PRN (03:30)
[2017-12-27] MEDS: ONDANSETRON HCL INJ/PF 4 MG/2 ML SDV IV PRN ×4 (03:30→18:32)
[2017-12-27] MEDS: VANCOMYCIN HCL 1,000 MG in DEXTROSE 5%-WATER 250 ML IV SCH (06:04)
[2017-12-27] MEDS: LANSOPRAZOLE 30 MG TAB.RAP.DR PO SCH (06:04)
[2017-12-27 06:27] LABS: VANCOMYCIN,TROUGH 48.8 ug/mL (5.0-20.0)
[2017-12-27] MEDS: LEVALBUTEROL HCL NEB 1.25 MG/3 ML AMPUL NEB SCH ×3 (08:09→20:37)
[2017-12-27] MEDS: ACETYLCYSTEINE 20% SOLN 800 MG/4 ML VIAL.NEB NEB SCH ×2 (08:09→20:37)
[2017-12-27] MEDS: METFORMIN HCL 500 MG TABLET PO SCH ×2 (08:28→18:28)
[2017-12-27] MEDS: LISINOPRIL 10 MG TABLET PO SCH (10:51)
[2017-12-27] MEDS: FERROUS SULFATE 325 MG TABLET PO SCH ×2 (10:52→18:27)
[2017-12-27] MEDS: HYDROCHLOROTHIAZIDE 25 MG TABLET PO SCH (10:52)
[2017-12-27] MEDS: SITAGLIPTIN PHOSPHATE 50 MG TABLET PO SCH (10:52)
[2017-12-27] MEDS: MULTIVITAMIN TABLET PO SCH (10:52)
[2017-12-27] MEDS ORDERED: ONDANSETRON HCL INJ/PF 4 MG/2 ML SDV IV ONE (12:00)
--- NOTE | 2017-12-27 12:22 | PDOC PROGRESS REPORT ---
Subjective Progress Note for:: 12/27/17 Subjective:: Patient reported significant nausea this morning with episodes of vomiting. Oral intake remain poor. No chest pain or palpitation. She refused metformin and Januvia administration. Her blood glucose remain elevated. Remain on IV antibiotic therapy. Reason For Visit: PERSISTENT FEVER,TACHYCARDIA,RECURRENT Physical Exam Vital Signs: Temp Pulse Resp BP Pulse Ox 98.3 F 101 H 21 H 131/71 H 97 12/27/17 11:37 12/27/17 11:37 12/27/17 11:37 12/27/17 11:37 12/27/17 11:37 Intake & Output 12/26/17 12/27/17 12/28/17 06:59 06:59 06:59 Intake Total 1049 1374 487 Balance 1049 1374 487 Weight 92.1 kg 91.5 kg Physical Exam: General appearance: PRESENT: no acute distress, obese Head exam: PRESENT: atraumatic, normocephalic Eye exam: PRESENT: conjunctiva pink, EOMI, PERRLA. ABSENT: sclera icterus Ear exam: PRESENT: normal external ear exam Mouth exam: PRESENT: moist Respiratory exam: PRESENT: decreased breath sounds - at lung bases Cardiovascular exam: PRESENT: RRR. ABSENT: diastolic murmur, rubs, systolic murmur Vascular exam: ABSENT: pallor GI/Abdominal exam: PRESENT: normal bowel sounds, soft. ABSENT: distended, guarding, mass, organomegaly, rebound, tenderness Extremities exam: ABSENT: pedal edema Musculoskeletal exam: PRESENT: normal inspection Neurological exam: PRESENT: alert, awake, oriented to person, oriented to place , oriented to time, oriented to situation, CN II-XII grossly intact. ABSENT: motor sensory deficit Psychiatric exam: PRESENT: appropriate affect, normal mood. ABSENT: homicidal ideation, suicidal ideation Results Laboratory Results: 12/24/17 05:30 12/24/17 05:30 Impressions: Cervical Spine CT 12/23/17 00:00 IMPRESSION: CHRONIC DEGENERATIVE CHANGES. Postsurgical changes as noted above. Other findings as noted above Head CT 12/23/17 00:00 IMPRESSION: No significant intracranial abnormalities were identified. Other findings as noted above EVIDENCE OF ACUTE STROKE: NO. Chest X-Ray 12/23/17 09:54 IMPRESSION: Increasing right lower lobe pneumonia. Chest CT 12/26/17 00:00 IMPRESSION: 1. Progressive more confluent right lower lobe consolidation. 2. Adenopathy, similar to prior. Assessment & Plan - Diagnosis (1) Right lower lobe pneumonia Qualifiers: Pneumonia type: due to unspecified organism Qualified Code(s): J18.1 - Lobar pneumonia, unspecified organism Is this a current diagnosis for this admission?: Yes Plan: Continue current antibiotic medication management. Continue chest physiotherapy and mucolytic treatment. ? need for pulmonary toileting bronchoscopy in view of her latest CT scan findings. (3) Diabetes mellitus type 2 in obese Is this a current diagnosis for this admission?: Yes Plan: Start on Lantus Insulin 50 units SC qhs. Maintain on sliding scale coverage. Continue current dietary management. (4) Anemia Qualifiers: Anemia type: other cause Other causes of anemia: other cause, not classified Qualified Code(s): D64.89 - Other specified anemias Is this a current diagnosis for this admission?: Yes - Time Time Spent with patient: 25-34 minutes Medications reviewed and adjusted accordingly: Yes Anticipated discharge: Home with Homehealth Within: Other - Inpatient Certification Based on my medical assessment, after consideration of the patient's comorbidities, presenting symptoms, or acuity I expect that the services needed warrant INPATIENT care.: Yes I certify that my determination is in accordance with my understanding of Medicare's requirements for reasonable and necessary INPATIENT services [42 CFR 412.3e].: Yes Medical Necessity: Need Close Monitoring Due to Risk of Patient Decompensation, Need For IV Fluids, Need For Continuous Telemetry Monitoring, Need for IV Antibiotics, Risk of Complication if Not Cared For in Hospital Post Hospital Care: D/C Stockroom Keeper Documentation - Plan Summary Plan Summary: See attending physician orders. Emphasized use of bedside flutter and participation in chest physiotherapy.
[2017-12-27] MEDS: INSULIN LISPRO 100 UNIT/ML 3 ML VIAL SUBCUT PRN ×3 (12:31→21:15)
[2017-12-27] MEDS: LEVOFLOXACIN 750 MG/D5W RTU 750 MG/150 ML RTUPB IV SCH (18:27)
[2017-12-27] MEDS: CEFTRIAXONE SODIUM 1,000 MG in DEXTROSE 5%-WATER 50 ML IV SCH (21:15)
[2017-12-27] MEDS: INSULIN GLARGINE,HUM.REC.ANLOG 300 UNIT/3 ML INSULN.PEN SUBCUT SCH (21:16)
[2017-12-28] MEDS: LANSOPRAZOLE 30 MG TAB.RAP.DR PO SCH (05:13)
[2017-12-28 07:21] LABS: VANCOMYCIN,TROUGH 46.7 ug/mL (5.0-20.0)
[2017-12-28] MEDS: METFORMIN HCL 500 MG TABLET PO SCH ×2 (08:19→17:41)
[2017-12-28] MEDS: ACETYLCYSTEINE 20% SOLN 800 MG/4 ML VIAL.NEB NEB SCH ×2 (09:02→22:18)
[2017-12-28] MEDS: LEVALBUTEROL HCL NEB 1.25 MG/3 ML AMPUL NEB SCH ×3 (09:02→20:50)
[2017-12-28] MEDS: HYDROMORPHONE HCL INJ/PF 2 MG/ML AMPULE IV PRN ×4 (09:26→22:21)
[2017-12-28] MEDS: MULTIVITAMIN TABLET PO SCH (10:38)
[2017-12-28] MEDS: HYDROCHLOROTHIAZIDE 25 MG TABLET PO SCH (10:39)
[2017-12-28] MEDS: SITAGLIPTIN PHOSPHATE 50 MG TABLET PO SCH (10:39)
[2017-12-28] MEDS: FERROUS SULFATE 325 MG TABLET PO SCH ×2 (10:39→17:40)
[2017-12-28] MEDS: LISINOPRIL 10 MG TABLET PO SCH (10:39)
[2017-12-28] MEDS: INSULIN LISPRO 100 UNIT/ML 3 ML VIAL SUBCUT PRN ×2 (12:36→17:40)
--- NOTE | 2017-12-28 15:01 | PDOC PROGRESS REPORT ---
Subjective Progress Note for:: 12/28/17 Subjective:: Continues to complain of nausea and vomiting still have a productive cough volume which is decreased Reason For Visit: PERSISTENT FEVER,TACHYCARDIA,RECURRENT Physical Exam Vital Signs: Temp Pulse Resp BP Pulse Ox 98.1 F 108 H 16 136/78 H 95 12/28/17 11:20 12/28/17 14:06 12/28/17 14:06 12/28/17 11:20 12/28/17 14:06 Intake & Output 12/27/17 12/28/17 12/29/17 06:59 06:59 06:59 Intake Total 1374 1024 822 Output Total 0 Balance 1374 1024 822 Weight 91.5 kg 90.9 kg General appearance: PRESENT: no acute distress, cooperative, disheveled Head exam: PRESENT: atraumatic, normocephalic Eye exam: PRESENT: conjunctiva pale, EOMI. ABSENT: nystagmus, scleral icterus Mouth exam: PRESENT: moist, neck supple, tongue midline Neck exam: ABSENT: carotid bruit, JVD, lymphadenopathy, thyromegaly, tracheal deviation, tracheostomy Respiratory exam: PRESENT: decreased breath sounds, prolonged expiratory phas, rales, rhonchi, unlabored. ABSENT: retraction, stridor Cardiovascular exam: PRESENT: RRR, +S1, +S2 Pulses: PRESENT: normal radial pulses GI/Abdominal exam: PRESENT: soft. ABSENT: tenderness Extremities exam: ABSENT: calf tenderness, clubbing, joint swelling, pedal edema Musculoskeletal exam: ABSENT: deformity, dislocation Neurological exam: PRESENT: alert, awake Psychiatric exam: PRESENT: flat affect Skin exam: PRESENT: dry, warm Results Laboratory Results: 12/24/17 05:30 12/28/17 05:47 12/28/17 05:47 Creatinine 4.90 H Est GFR ( Amer) 11 L Est GFR (Non-Af Amer) 9 L Impressions: Cervical Spine CT 12/23/17 00:00 IMPRESSION: CHRONIC DEGENERATIVE CHANGES. Postsurgical changes as noted above. Other findings as noted above Head CT 12/23/17 00:00 IMPRESSION: No significant intracranial abnormalities were identified. Other findings as noted above EVIDENCE OF ACUTE STROKE: NO. Chest X-Ray 12/23/17 09:54 IMPRESSION: Increasing right lower lobe pneumonia. Chest CT 12/26/17 00:00 IMPRESSION: 1. Progressive more confluent right lower lobe consolidation. 2. Adenopathy, similar to prior. Assessment & Plan - Diagnosis (1) Right lower lobe pneumonia Qualifiers: Pneumonia type: due to unspecified organism Qualified Code(s): J18.1 - Lobar pneumonia, unspecified organism Is this a current diagnosis for this admission?: Yes Plan: No etiology long-standing history is been treated on several occasions fortunately chest physiotherapy and mucolytics are helping her expectorate (2) Diabetes mellitus type 2 in obese Is this a current diagnosis for this admission?: Yes Plan: Stop prednisone for the time being this may in and of itself spuriously elevated white count. (3) Anemia Qualifiers: Anemia type: other cause Other causes of anemia: other cause, not classified Qualified Code(s): D64.89 - Other specified anemias Is this a current diagnosis for this admission?: Yes Plan: Iron deficiency acknowledged reticulocyte count elevatedt
[2017-12-28] MEDS ORDERED: GLUCAGON,HUMAN RECOMB 1 MG INJ SUBCUT PRN (15:05)
[2017-12-28] MEDS ORDERED: DEXTROSE 50%-WATER 25 GM/50 ML DISP.SYRIN IV PRN ×2 (15:05)
[2017-12-28] MEDS ORDERED: DEXTROSE 40% GEL 15 GM TUBE PO PRN ×2 (15:05)
--- NOTE | 2017-12-28 21:59 | PDOC PROGRESS REPORT ---
Subjective Progress Note for:: 12/28/17 Subjective:: She is scheduled for bronchoscopy tomorrow, she was by the bedside Reason For Visit: PERSISTENT FEVER,TACHYCARDIA,RECURRENT Physical Exam Vital Signs: Temp Pulse Resp BP Pulse Ox 98.0 F 100 18 122/77 90 L 12/28/17 19:38 12/28/17 19:38 12/28/17 19:38 12/28/17 19:38 12/28/17 19:38 Intake & Output 12/27/17 12/28/17 12/29/17 06:59 06:59 06:59 Intake Total 1374 1024 1022 Output Total 0 Balance 1374 1024 1022 Weight 91.5 kg 90.9 kg General appearance: PRESENT: no acute distress Eye exam: PRESENT: PERRLA Respiratory exam: PRESENT: rhonchi Cardiovascular exam: PRESENT: +S1, +S2 GI/Abdominal exam: PRESENT: soft Neurological exam: PRESENT: alert Results Laboratory Results: 12/24/17 05:30 12/28/17 05:47 12/28/17 05:47 Creatinine 4.90 H Est GFR ( Amer) 11 L Est GFR (Non-Af Amer) 9 L Impressions: Cervical Spine CT 12/23/17 00:00 IMPRESSION: CHRONIC DEGENERATIVE CHANGES. Postsurgical changes as noted above. Other findings as noted above Head CT 12/23/17 00:00 IMPRESSION: No significant intracranial abnormalities were identified. Other findings as noted above EVIDENCE OF ACUTE STROKE: NO. Chest X-Ray 12/23/17 09:54 IMPRESSION: Increasing right lower lobe pneumonia. Chest CT 12/26/17 00:00 IMPRESSION: 1. Progressive more confluent right lower lobe consolidation. 2. Adenopathy, similar to prior. Assessment & Plan - Diagnosis (1) Cryptogenic organizing pneumonia Is this a current diagnosis for this admission?: Yes (2) Right lower lobe pneumonia Qualifiers: Pneumonia type: due to unspecified organism Qualified Code(s): J18.1 - Lobar pneumonia, unspecified organism Is this a current diagnosis for this admission?: Yes (3) Diabetes mellitus type 2 in obese Is this a current diagnosis for this admission?: Yes (4) Lymphedema Is this a current diagnosis for this admission?: Yes (5) Cervicalgia Is this a current diagnosis for this admission?: Yes
[2017-12-28] MEDS: CEFTRIAXONE SODIUM 1,000 MG in DEXTROSE 5%-WATER 50 ML IV SCH (22:20)
[2017-12-28] MEDS: INSULIN GLARGINE,HUM.REC.ANLOG 300 UNIT/3 ML INSULN.PEN SUBCUT SCH (22:25)
[2017-12-29] MEDS: LANSOPRAZOLE 30 MG TAB.RAP.DR PO SCH (05:13)
[2017-12-29 07:11] LABS: INTERNATIONAL RATION (INR) 1.06; PROTHROMBIN TIME 14.3 SEC (11.4-15.4)
[2017-12-29 07:12] LABS: MEAN CORPUSCULAR HEMOGLOBIN 29.3 pg (27.0-33.4); MEAN CORPUSCULAR HGB CONC 33.4 g/dL (32.0-36.0); MEAN CORPUSCULAR VOLUME 88 fl (80-97); PARTIAL THROMBOPLASTIN TIME 28.9 SEC (23.5-35.8); RED BLOOD COUNT 2.74 10^6/uL (3.72-5.28); RED CELL DISTRIBUTION WIDTH 13.1 % (11.5-14.0); WHITE BLOOD COUNT 16.2 10^3/uL (4.0-10.5)
[2017-12-29 07:25] LABS: BLOOD UREA NITROGEN 29 mg/dL (7-20); CALCIUM 9.4 mg/dL (8.4-10.2); CHLORIDE 100 mmol/L (98-107); GLUCOSE 201 mg/dL (75-110); POTASSIUM 4.7 mmol/L (3.6-5.0)
[2017-12-29 07:26] LABS: ANION GAP 9 (5-19); CARBON DIOXIDE 28 mmol/L (22-30); SODIUM 137.4 mmol/L (137-145)
[2017-12-29 08:18] LABS: PLATELET COUNT 461 10^3/uL (150-450)
[2017-12-29] MEDS: ACETYLCYSTEINE 20% SOLN 800 MG/4 ML VIAL.NEB NEB SCH ×2 (08:24→21:17)
[2017-12-29] MEDS: LEVALBUTEROL HCL NEB 1.25 MG/3 ML AMPUL NEB SCH ×3 (08:24→21:13)
--- NOTE | 2017-12-29 08:46 | Progress Note ---
Provider Note Provider Note: ID Consult Note Asked to review pt's chart by Pharmacy. Pt not seen or examined. Ms Munoz was hospitalized at [facility] on 12/11 and treated for CAP, initially with cefepime/vancomycin, then transitioned to Avelox. Sputum revealed no organisms, and blood cultures were negative. She continued to have fever, productive cough and malaise as an outpatient and was admitted to [facility]. Vancomycin, Levaquin, Rocephin and vancomycin were started on 12/18. Blood cultures are again negative. Sputum culture has also been unrevealing. At this point, she has completed 10 days of Levaquin, vancomycin, and Rocephin during this admission. Pt continues to have a leukocytosis in the 15-18k range. Pt also appears to have some LUIS ALBERTO most recently. Usually 7 days of antibiotic therapy is sufficient for treatment of typical bacterial pneumonia. Pt has no evidence of a lung abscess or empyema on chest imaging. She has not grown MRSA from sputum. Suggest discontinuing antibiotic therapy if there has not been a clear response and pursuing further investigation with bronchoscopy. Harshil Lai MD [facility] Infectious Diseases pager [phone]
--- NOTE | 2017-12-29 09:22 | RADIOLOGY REPORT (SQ) ---
EXAM DESCRIPTION: CHEST 2 VIEWS COMPLETED DATE/TIME: 12/29/2017 9:10 am REASON FOR STUDY: Pneumonia COMPARISON: Chest films 12/23/2017, 12/23/2017, 12/22/2017, 12/20/2017, 12/03/2017, 11/25/2013 CT chest 12/26/2017 EXAM PARAMETERS: NUMBER OF VIEWS: two views TECHNIQUE: Digital Frontal and Lateral radiographic views of the chest acquired. RADIATION DOSE: NA LIMITATIONS: none FINDINGS: LUNGS AND PLEURA: There is persistent consolidation in the right lower lobe worrisome for pneumonia. This is unchanged from 12/26/[address] and 12/23/2017 chest films. MEDIASTINUM AND HILAR STRUCTURES: No masses or contour abnormalities. HEART AND VASCULAR STRUCTURES: Heart normal size. No evidence for failure. BONES: No acute findings. HARDWARE: None in the chest. OTHER: No other significant finding. IMPRESSION: Persistent right lower lobe consolidation worrisome for pneumonia TECHNICAL DOCUMENTATION: JOB ID: [id number] [employer]- All Rights Reserved Reading location - IP/workstation name: [email or web address]
[2017-12-29] MEDS: METFORMIN HCL 500 MG TABLET PO SCH (09:36)
[2017-12-29] MEDS ORDERED: MIDAZOLAM 2 MG/2 ML INJ ONE (10:09)
[2017-12-29] MEDS ORDERED: ONDANSETRON HCL INJ/PF 4 MG/2 ML SDV ONE (10:09)
[2017-12-29] MEDS ORDERED: DEXMEDETOMIDINE INJ 80 MCG/20 ML VIAL IV ONE (10:09)
[2017-12-29] MEDS ORDERED: PROPOFOL INJ 200 MG/20 ML VIAL IV ONE (10:10)
[2017-12-29] MEDS ORDERED: LIDOCAINE 4% INJ/PF (40 MG/ML) 5 ML AMPUL ONE ×2 (10:12→10:23)
[2017-12-29] MEDS ORDERED: ALBUTEROL SULFATE 0.083% NEB 2.5 MG/3 ML AMPUL NEB ONE (10:13)
[2017-12-29] MEDS ORDERED: LIDOCAINE 2% INJ (20 MG/ML) 20 ML MDV ONE (10:37)
--- NOTE | 2017-12-29 11:33 | Operative Report ---
Operative Report DATE OF SURGERY: 12/22/17 Operative Report: npo prior to proceedure x 12 hrs 4% lidocane above and 2% below cords (precedex, propofol and versed per anesthesia)"T "sized olympic scope was introduce into upper airway.No abnormalities noted post pharynx,v cords prox or distal trachea no splying kris.L main <upper lobe,lingula and L lower lobes were normal.No abnormalities of R main;R upper lobe;R bronchus intermedius; R mid or R lower lobes.R lower lobe post segment lavage repeatedly. fluid to lab :no complications PREOPERATIVE DIAGNOSIS: pneumonia POSTOPERATIVE DIAGNOSIS: same OPERATION: fiberoptic brochoscopy wit bronchoalveolar lavage SURGEON: CHUCKY ROBBINS ANESTHESIA: Moderate Sedation TISSUE REMOVED OR ALTERED: n/a ESTIMATED BLOOD LOSS: < 2 mL INTRAOPERATIVE FINDINGS: as above
--- NOTE | 2017-12-29 11:55 | RADIOLOGY REPORT (SQ) ---
EXAM DESCRIPTION: CHEST SINGLE VIEW COMPLETED DATE/TIME: 12/29/2017 11:38 am REASON FOR STUDY: S/P Lung Biospy COMPARISON: CT chest 12/26/2017 Two-view chest 12/29/2017 EXAM PARAMETERS: NUMBER OF VIEWS: One view. TECHNIQUE: Single frontal radiographic view of the chest acquired. RADIATION DOSE: NA LIMITATIONS: None. FINDINGS: LUNGS AND PLEURA: Persistent right lower lobe airspace disease worrisome for pneumonia. B andlike atelectasis just above the left hemidiaphragm. No pneumothorax or pleural effusions. MEDIASTINUM AND HILAR STRUCTURES: No masses. Contour normal. HEART AND VASCULAR STRUCTURES: Heart normal in size. Normal vasculature. BONES: No acute findings. HARDWARE: Lower cervical fusion hardware. Left subclavian triple lumen catheter tip in the superior vena cava OTHER: No other significant finding. IMPRESSION: Persistent bilateral lower lobe airspace disease. No pneumothorax. TECHNICAL DOCUMENTATION: JOB ID: [id number] [employer]- All Rights Reserved Reading location - IP/workstation name: [email or web address]
[2017-12-29] MEDS ORDERED: MORPHINE SULFATE 10 MG/ML INJ IV PRN (12:05)
[2017-12-29] MEDS ORDERED: OXYCODONE-ACETAMINOPHEN 5-325 MG TABLET PO PRN ×2 (12:05)
[2017-12-29] MEDS ORDERED: FENTANYL CITRATE INJ/PF 100 MCG/2 ML AMPUL IV PRN ×3 (12:05)
[2017-12-29] MEDS ORDERED: DIPHENHYDRAMINE HCL 50 MG/ML VIAL IV PRN (12:05)
[2017-12-29] MEDS ORDERED: PROMETHAZINE HCL INJ 25 MG/1 ML VIAL IV PRN ×2 (12:05)
[2017-12-29] MEDS ORDERED: MEPERIDINE HCL/PF INJ 25 MG/1 ML DISP.SYRIN IV PRN (12:05)
[2017-12-29 12:50] LABS: FLUID APPEARANCE HAZY; FLUID COLOR COLORLESS; FLUID SOURCE LUNG; FLUID TYPE BRONCHIAL LAVAGE; FLUID VISCOSITY SLIGHTLY VISCOUS
[2017-12-29] MEDS: SITAGLIPTIN PHOSPHATE 50 MG TABLET PO SCH (13:25)
[2017-12-29] MEDS: FERROUS SULFATE 325 MG TABLET PO SCH ×2 (13:38→17:12)
[2017-12-29] MEDS: INSULIN LISPRO 100 UNIT/ML 3 ML VIAL SUBCUT PRN ×3 (13:38→21:58)
[2017-12-29] MEDS: LISINOPRIL 10 MG TABLET PO SCH (13:39)
[2017-12-29] MEDS: MULTIVITAMIN TABLET PO SCH (13:39)
[2017-12-29] MEDS: HYDROCHLOROTHIAZIDE 25 MG TABLET PO SCH (13:39)
--- NOTE | 2017-12-29 14:57 | PDOC PROGRESS REPORT ---
Subjective Progress Note for:: 12/29/17 Subjective:: Status post bronchoscopy stable Reason For Visit: PERSISTENT FEVER,TACHYCARDIA,RECURRENT Physical Exam Vital Signs: Temp Pulse Resp BP Pulse Ox 98.6 F 107 H 16 101/62 99 12/29/17 12:57 12/29/17 14:00 12/29/17 12:57 12/29/17 12:57 12/29/17 12:57 Intake & Output 12/28/17 12/29/17 12/30/17 06:59 06:59 06:59 Intake Total 1024 1644 Output Total 0 Balance 1024 1644 Weight 90.9 kg 90 kg General appearance: PRESENT: no acute distress, cooperative, disheveled Head exam: PRESENT: atraumatic, normocephalic Eye exam: PRESENT: conjunctiva pale, EOMI. ABSENT: nystagmus, scleral icterus Mouth exam: PRESENT: moist, neck supple, tongue midline Neck exam: ABSENT: carotid bruit, JVD, lymphadenopathy, thyromegaly, tracheal deviation, tracheostomy Respiratory exam: PRESENT: decreased breath sounds, prolonged expiratory phas, rales, unlabored. ABSENT: retraction, rhonchi, stridor, tachypnea Cardiovascular exam: PRESENT: RRR, +S1, +S2 Pulses: PRESENT: normal radial pulses GI/Abdominal exam: PRESENT: soft. ABSENT: tenderness Extremities exam: ABSENT: calf tenderness, clubbing, joint swelling, pedal edema Musculoskeletal exam: ABSENT: deformity, dislocation Neurological exam: PRESENT: alert, awake Psychiatric exam: PRESENT: flat affect Skin exam: PRESENT: dry, warm Results Laboratory Results: 12/29/17 06:52 12/29/17 06:52 12/29/17 12/29/17 12/29/17 06:52 06:52 10:57 WBC 16.2 H RBC 2.74 L Hgb 8.0 L Hct 24.0 L MCV 88 MCH 29.3 MCHC 33.4 RDW 13.1 Plt Count 461 H Sodium 137.4 Potassium 4.7 Chloride 100 Carbon Dioxide 28 Anion Gap 9 BUN 29 H Creatinine 4.87 H Est GFR ( Amer) 11 L Est GFR (Non-Af Amer) 9 L Glucose 201 H Calcium 9.4 Fluid Type BRONCHIAL LAVAGE Fluid Source LUNG Fluid Color COLORLESS Fluid Appearance HAZY Fluid Viscosity SLIGHTLY VISCOUS Fluid WBC 152 Fluid RBC 605 12/19/17 17:30 Sputum Gram Stain - Final 12/19/17 17:30 Sputum Sputum Culture - Final NORMAL LARA Impressions: Cervical Spine CT 12/23/17 00:00 IMPRESSION: CHRONIC DEGENERATIVE CHANGES. Postsurgical changes as noted above. Other findings as noted above Head CT 12/23/17 00:00 IMPRESSION: No significant intracranial abnormalities were identified. Other findings as noted above EVIDENCE OF ACUTE STROKE: NO. Chest CT 12/26/17 00:00 IMPRESSION: 1. Progressive more confluent right lower lobe consolidation. 2. Adenopathy, similar to prior. Chest X-Ray 12/29/17 11:00 IMPRESSION: Persistent bilateral lower lobe airspace disease. No pneumothorax. Assessment & Plan - Diagnosis (1) Right lower lobe pneumonia Qualifiers: Pneumonia type: due to unspecified organism Qualified Code(s): J18.1 - Lobar pneumonia, unspecified organism Is this a current diagnosis for this admission?: Yes Plan: Status post bronchoscopy no abnormalities visualized (2) Diabetes mellitus type 2 in obese Is this a current diagnosis for this admission?: Yes Plan: Stop prednisone for the time being this may in and of itself spuriously elevated white count. (3) Anemia Qualifiers: Anemia type: other cause Other causes of anemia: other cause, not classified Qualified Code(s): D64.89 - Other specified anemias Is this a current diagnosis for this admission?: Yes Plan: Consult hematology (4) Acute renal failure (ARF) Is this a current diagnosis for this admission?: Yes Plan: SPECT this is secondary to vancomycin have discontinued vancomycin will ask nephrology to valuate
[2017-12-29] MEDS: LEVOFLOXACIN 500 MG/D5W RTU 500 MG/100 ML RTUPB IV SCH (17:11)
[2017-12-29] MEDS: HYDROMORPHONE HCL INJ/PF 2 MG/ML AMPULE IV PRN ×2 (18:33→21:59)
--- NOTE | 2017-12-29 21:08 | PDOC PROGRESS REPORT ---
Subjective Progress Note for:: 12/29/17 Subjective:: Patient was seen by the bedside, she had bronchoscopy done today,, BAL was done by the photography manager, the serum creatinine is 4.9 suggesting acute kidney injury most likely ATN from vancomycin, presently no indication for renal replacement therapy Reason For Visit: PERSISTENT FEVER,TACHYCARDIA,RECURRENT Physical Exam Vital Signs: Temp Pulse Resp BP Pulse Ox 98.2 F 109 H 20 123/74 93 12/29/17 15:34 12/29/17 19:00 12/29/17 15:34 12/29/17 15:34 12/29/17 15:34 Intake & Output 12/28/17 12/29/17 12/30/17 06:59 06:59 06:59 Intake Total 1024 1644 690 Output Total 0 2 Balance 1024 1644 688 Weight 90.9 kg 90 kg General appearance: PRESENT: no acute distress Eye exam: PRESENT: PERRLA Respiratory exam: PRESENT: rhonchi Cardiovascular exam: PRESENT: +S1, +S2 GI/Abdominal exam: PRESENT: soft Neurological exam: PRESENT: alert, CN II-XII grossly intact Results Laboratory Results: 12/29/17 06:52 12/29/17 06:52 12/29/17 12/29/17 12/29/17 06:52 06:52 10:57 WBC 16.2 H RBC 2.74 L Hgb 8.0 L Hct 24.0 L MCV 88 MCH 29.3 MCHC 33.4 RDW 13.1 Plt Count 461 H Sodium 137.4 Potassium 4.7 Chloride 100 Carbon Dioxide 28 Anion Gap 9 BUN 29 H Creatinine 4.87 H Est GFR ( Amer) 11 L Est GFR (Non-Af Amer) 9 L Glucose 201 H Calcium 9.4 Fluid Type BRONCHIAL LAVAGE Fluid Source LUNG Fluid Color COLORLESS Fluid Appearance HAZY Fluid Viscosity SLIGHTLY VISCOUS Fluid WBC 152 Fluid RBC 605 12/19/17 17:30 Sputum Gram Stain - Final 12/19/17 17:30 Sputum Sputum Culture - Final NORMAL LARA Impressions: Cervical Spine CT 12/23/17 00:00 IMPRESSION: CHRONIC DEGENERATIVE CHANGES. Postsurgical changes as noted above. Other findings as noted above Head CT 12/23/17 00:00 IMPRESSION: No significant intracranial abnormalities were identified. Other findings as noted above EVIDENCE OF ACUTE STROKE: NO. Chest CT 12/26/17 00:00 IMPRESSION: 1. Progressive more confluent right lower lobe consolidation. 2. Adenopathy, similar to prior. Chest X-Ray 12/29/17 11:00 IMPRESSION: Persistent bilateral lower lobe airspace disease. No pneumothorax. Assessment & Plan - Diagnosis (1) Cryptogenic organizing pneumonia Is this a current diagnosis for this admission?: Yes (2) Right lower lobe pneumonia Qualifiers: Pneumonia type: due to unspecified organism Qualified Code(s): J18.1 - Lobar pneumonia, unspecified organism Is this a current diagnosis for this admission?: Yes (3) Diabetes mellitus type 2 in obese Is this a current diagnosis for this admission?: Yes (4) Lymphedema Is this a current diagnosis for this admission?: Yes (5) Cervicalgia Is this a current diagnosis for this admission?: Yes (6) Acute kidney injury Is this a current diagnosis for this admission?: Yes Plan: She has vancomycin induced ATN medication for acute renal replacement therapy
[2017-12-29] MEDS: CEFTRIAXONE SODIUM 1,000 MG in DEXTROSE 5%-WATER 50 ML IV SCH (21:57)
[2017-12-29] MEDS: INSULIN GLARGINE,HUM.REC.ANLOG 300 UNIT/3 ML INSULN.PEN SUBCUT SCH (21:59)
[2017-12-29] MEDS: ONDANSETRON HCL INJ/PF 4 MG/2 ML SDV IV PRN (22:00)
[2017-12-30] MEDS: LANSOPRAZOLE 30 MG TAB.RAP.DR PO SCH (05:13)
[2017-12-30] MEDS: NORMAL SALINE 1000 ML 1,000 ML IV PRN ×2 (05:48→18:37)
[2017-12-30 06:26] LABS: ABSOLUTE BASOPHILS # (AUTO) 0.1 10^3/uL (0.0-0.2); ABSOLUTE EOSINOPHILS # (AUTO) 0.2 10^3/uL (0.0-0.6); ABSOLUTE LYMPHOCYTES (AUTO) 1.4 10^3/uL (0.5-4.7); ABSOLUTE MONOCYTES (AUTO) 1.1 10^3/uL (0.1-1.4); BASOPHILS % (AUTO) 0.6 % (0-2); EOSINOPHILS % (AUTO) 1.7 % (0-6); HEMATOCRIT 22.9 % (36.0-47.0); LYMPHOCYTES % (AUTO) 11.7 % (13-45); MEAN CORPUSCULAR HEMOGLOBIN 30.2 pg (27.0-33.4); MEAN CORPUSCULAR HGB CONC 34.6 g/dL (32.0-36.0); MEAN CORPUSCULAR VOLUME 87 fl (80-97); PLATELET COUNT 441 10^3/uL (150-450); RED BLOOD COUNT 2.62 10^6/uL (3.72-5.28); RED CELL DISTRIBUTION WIDTH 13.2 % (11.5-14.0); TOTAL CELLS COUNTED % (AUTO) 100 %; WHITE BLOOD COUNT 11.7 10^3/uL (4.0-10.5)
[2017-12-30 06:28] LABS: HEMOGLOBIN 7.9 g/dL (12.0-15.5)
[2017-12-30 06:47] LABS: ANION GAP 10 (5-19); BLOOD UREA NITROGEN 31 mg/dL (7-20); CALCIUM 8.5 mg/dL (8.4-10.2); CARBON DIOXIDE 25 mmol/L (22-30); CHLORIDE 101 mmol/L (98-107); GLUCOSE 282 mg/dL (75-110); POTASSIUM 4.7 mmol/L (3.6-5.0); SODIUM 136.1 mmol/L (137-145)
[2017-12-30] MEDS: INSULIN LISPRO 100 UNIT/ML 3 ML VIAL SUBCUT PRN ×3 (07:46→17:05)
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
[2017-12-30] MEDS: ACETYLCYSTEINE 20% SOLN 800 MG/4 ML VIAL.NEB NEB SCH (09:13)
[2017-12-30] MEDS: LEVALBUTEROL HCL NEB 1.25 MG/3 ML AMPUL NEB SCH ×3 (09:13→20:13)
[2017-12-30] MEDS: MULTIVITAMIN TABLET PO SCH (10:13)
[2017-12-30] MEDS: LISINOPRIL 10 MG TABLET PO SCH (10:14)
[2017-12-30] MEDS: HYDROCHLOROTHIAZIDE 25 MG TABLET PO SCH (10:15)
[2017-12-30] MEDS: BENZONATATE 100 MG CAPSULE PO PRN ×2 (10:15→21:28)
[2017-12-30] MEDS: SITAGLIPTIN PHOSPHATE 50 MG TABLET PO SCH (10:15)
[2017-12-30] MEDS: FERROUS SULFATE 325 MG TABLET PO SCH ×2 (10:15→17:05)
[2017-12-30] MEDS: ACETAMINOPHEN 325 MG TABLET PO PRN (10:25)
[2017-12-30 10:46] LABS: APPEARANCE,URINE CLEAR; BILIRUBIN,URINE NEGATIVE (NEGATIVE); COLOR,URINE YELLOW; GLUCOSE, URINE NEGATIVE (NEGATIVE); KETONES,URINE NEGATIVE (NEGATIVE); LEUKOCYTE ESTERASE,URINE NEGATIVE (NEGATIVE); NITRITE,URINE NEGATIVE (NEGATIVE); PROTEIN,URINE NEGATIVE (NEGATIVE); URINE SPECIFIC GRAVITY 1.012; UROBILINOGEN,URINE NEGATIVE mg/dL (<2.0)
[2017-12-30] MEDS: LORATADINE/PSEUDOEPHEDRINE SUL 10-240 MG TAB.SR.24H PO SCH (12:24)
[2017-12-30] MEDS ORDERED: BUTALB/ACETAMINOPHEN/CAFFEINE 1 TAB EACH PO PRN (15:32)
[2017-12-30] MEDS: HYDROMORPHONE HCL INJ/PF 2 MG/ML AMPULE IV PRN (15:33)
[2017-12-30] MEDS: CEFTRIAXONE SODIUM 1,000 MG in DEXTROSE 5%-WATER 50 ML IV SCH (21:25)
[2017-12-30] MEDS: INSULIN GLARGINE,HUM.REC.ANLOG 300 UNIT/3 ML INSULN.PEN SUBCUT SCH (21:28)
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
[2017-12-30] MEDS: ONDANSETRON HCL INJ/PF 4 MG/2 ML SDV IV PRN (22:48)
[2017-12-31] MEDS: ACETYLCYSTEINE 20% SOLN 800 MG/4 ML VIAL.NEB NEB SCH ×3 (00:47→20:56)
[2017-12-31] MEDS: NORMAL SALINE 1000 ML 1,000 ML IV PRN (04:35)
[2017-12-31] MEDS: LANSOPRAZOLE 30 MG TAB.RAP.DR PO SCH ×2 (04:39→05:09)
[2017-12-31] MEDS ORDERED: ZOLPIDEM TARTRATE 5 MG TABLET PO PRN (06:11)
[2017-12-31] MEDS: ONDANSETRON HCL INJ/PF 4 MG/2 ML SDV IV PRN (08:03)
[2017-12-31] MEDS: LEVALBUTEROL HCL NEB 1.25 MG/3 ML AMPUL NEB SCH ×3 (08:30→20:54)
--- NOTE | 2017-12-31 08:32 | PDOC PROGRESS REPORT ---
Subjective Progress Note for:: 12/31/17 Subjective:: No acute events overnight Reason For Visit: PERSISTENT FEVER,TACHYCARDIA,RECURRENT Physical Exam Vital Signs: Temp Pulse Resp BP Pulse Ox 97.9 F 108 H 20 137/74 H 93 12/31/17 03:25 12/31/17 03:25 12/31/17 03:25 12/31/17 03:25 12/31/17 03:25 Intake & Output 12/30/17 12/31/17 01/01/18 06:59 06:59 06:59 Intake Total 740 2479 Output Total 2 Balance 738 2479 Weight 90.3 kg 90 kg General appearance: PRESENT: no acute distress, well-developed, well-nourished Head exam: PRESENT: atraumatic, normocephalic Eye exam: PRESENT: conjunctiva pink, EOMI, PERRLA. ABSENT: scleral icterus Ear exam: PRESENT: normal external ear exam Mouth exam: PRESENT: moist, tongue midline Neck exam: ABSENT: carotid bruit, JVD, lymphadenopathy, thyromegaly Respiratory exam: PRESENT: clear to auscultation soraya. ABSENT: rales, rhonchi, wheezes Cardiovascular exam: PRESENT: RRR. ABSENT: diastolic murmur, rubs, systolic murmur Pulses: PRESENT: normal dorsalis pedis pul Vascular exam: PRESENT: normal capillary refill GI/Abdominal exam: PRESENT: normal bowel sounds, soft. ABSENT: distended, guarding, mass, organolmegaly, rebound, tenderness Rectal exam: PRESENT: deferred Extremities exam: PRESENT: full ROM. ABSENT: calf tenderness, clubbing, pedal edema Neurological exam: PRESENT: alert, awake, oriented to person, oriented to place , oriented to time, oriented to situation, CN II-XII grossly intact. ABSENT: motor sensory deficit Psychiatric exam: PRESENT: appropriate affect, normal mood. ABSENT: homicidal ideation, suicidal ideation Skin exam: PRESENT: dry, intact, warm. ABSENT: cyanosis, rash Results Laboratory Results: 12/30/17 05:47 12/30/17 05:47 12/30/17 12/30/17 05:47 10:24 C-Reactive Protein 82.5 H Urine Color YELLOW Urine Appearance CLEAR Urine pH 5.0 Ur Specific [place] 1.012 Urine Protein NEGATIVE Urine Glucose (UA) NEGATIVE Urine Ketones NEGATIVE Urine Blood NEGATIVE Urine Nitrite NEGATIVE Ur Leukocyte Esterase NEGATIVE Urine WBC (Auto) 1 Urine RBC (Auto) 1 Impressions: Cervical Spine CT 12/23/17 00:00 IMPRESSION: CHRONIC DEGENERATIVE CHANGES. Postsurgical changes as noted above. Other findings as noted above Head CT 12/23/17 00:00 IMPRESSION: No significant intracranial abnormalities were identified. Other findings as noted above EVIDENCE OF ACUTE STROKE: NO. Chest CT 12/26/17 00:00 IMPRESSION: 1. Progressive more confluent right lower lobe consolidation. 2. Adenopathy, similar to prior. Chest X-Ray 12/29/17 11:00 IMPRESSION: Persistent bilateral lower lobe airspace disease. No pneumothorax. Assessment & Plan - Diagnosis (1) Anemia Qualifiers: Anemia type: other cause Other causes of anemia: chronic disease, other Qualified Code(s): D63.8 - Anemia in other chronic diseases classified elsewhere Is this a current diagnosis for this admission?: Yes Plan: now 2nd to recent infections, sepsis and also w/ kidney injury, no intervention needed unless hb<7, if that occurs transfuse 1-2 units prbc. Will follow peripherally. Thanks for the opportunity to assist in this pt's care
[2017-12-31] MEDS: LISINOPRIL 10 MG TABLET PO SCH (11:09)
[2017-12-31] MEDS: HYDROMORPHONE HCL INJ/PF 2 MG/ML AMPULE IV PRN ×2 (11:11→16:20)
[2017-12-31] MEDS: MULTIVITAMIN TABLET PO SCH (11:12)
[2017-12-31] MEDS: PROMETHAZINE HCL INJ 25 MG/1 ML VIAL IV PRN ×2 (11:12→16:20)
[2017-12-31 11:15] LABS: ABSOLUTE BASOPHILS # (AUTO) 0.1 10^3/uL (0.0-0.2); ABSOLUTE EOSINOPHILS # (AUTO) 0.2 10^3/uL (0.0-0.6); ABSOLUTE LYMPHOCYTES (AUTO) 1.6 10^3/uL (0.5-4.7); ABSOLUTE MONOCYTES (AUTO) 0.9 10^3/uL (0.1-1.4); ABSOLUTE NEUT (AUTO) 8.6 10^3/uL (1.7-8.2); BASOPHILS % (AUTO) 0.7 % (0-2); EOSINOPHILS % (AUTO) 2.2 % (0-6); HEMATOCRIT 22.5 % (36.0-47.0); LYMPHOCYTES % (AUTO) 13.8 % (13-45); MEAN CORPUSCULAR HEMOGLOBIN 29.6 pg (27.0-33.4); MEAN CORPUSCULAR HGB CONC 34.2 g/dL (32.0-36.0); MEAN CORPUSCULAR VOLUME 87 fl (80-97); MONOCYTES % (AUTO) 7.6 % (3-13); PLATELET COUNT 460 10^3/uL (150-450); RED CELL DISTRIBUTION WIDTH 12.9 % (11.5-14.0); SEGMENTED NEUTROPHILS % (AUTO) 75.7 % (42-78); TOTAL CELLS COUNTED % (AUTO) 100 %; WHITE BLOOD COUNT 11.3 10^3/uL (4.0-10.5)
[2017-12-31] MEDS: FERROUS SULFATE 325 MG TABLET PO SCH ×2 (11:15→19:16)
[2017-12-31] MEDS: SITAGLIPTIN PHOSPHATE 50 MG TABLET PO SCH (11:16)
[2017-12-31] MEDS: LORATADINE/PSEUDOEPHEDRINE SUL 10-240 MG TAB.SR.24H PO SCH (11:16)
[2017-12-31] MEDS: HYDROCHLOROTHIAZIDE 25 MG TABLET PO SCH (11:16)
[2017-12-31 11:19] LABS: HEMOGLOBIN 7.7 g/dL (12.0-15.5)
[2017-12-31 11:36] LABS: ALANINE AMINOTRANSFERASE 29 U/L (9-52); ALKALINE PHOSPHATASE 79 U/L (38-126); ANION GAP 12 (5-19); ASPARTATE AMINO TRANSFERASE 16 U/L (14-36); BILIRUBIN,DIRECT 0.3 mg/dL (0.0-0.4); BILIRUBIN,TOTAL 0.4 mg/dL (0.2-1.3); BLOOD UREA NITROGEN 25 mg/dL (7-20); CALCIUM 8.8 mg/dL (8.4-10.2); CARBON DIOXIDE 23 mmol/L (22-30); CHLORIDE 106 mmol/L (98-107); GLUCOSE 112 mg/dL (75-110); POTASSIUM 4.5 mmol/L (3.6-5.0); SODIUM 140.5 mmol/L (137-145); TOTAL PROTEIN 6.2 g/dL (6.3-8.2)
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
[2017-12-31] MEDS: LEVOFLOXACIN 500 MG/D5W RTU 500 MG/100 ML RTUPB IV SCH (20:23)
--- NOTE | 2017-12-31 21:30 | PDOC PROGRESS REPORT ---
Subjective Progress Note for:: 12/31/17 Subjective:: Patient seen by the bedside, she complain of malaise Reason For Visit: PERSISTENT FEVER,TACHYCARDIA,RECURRENT Physical Exam Vital Signs: Temp Pulse Resp BP Pulse Ox 97.9 F 109 H 20 134/73 H 99 12/31/17 19:51 12/31/17 19:51 12/31/17 15:15 12/31/17 19:51 12/31/17 19:51 Intake & Output 12/30/17 12/31/17 01/01/18 06:59 06:59 06:59 Intake Total 740 2479 200 Output Total 2 1800 Balance 738 2479 -1600 Weight 90.3 kg 90 kg General appearance: PRESENT: no acute distress Eye exam: PRESENT: PERRLA Respiratory exam: PRESENT: rhonchi Cardiovascular exam: PRESENT: +S1, +S2 GI/Abdominal exam: PRESENT: soft Neurological exam: PRESENT: alert Results Laboratory Results: 12/31/17 10:27 12/31/17 10:27 12/31/17 12/31/17 10:27 10:27 WBC 11.3 H RBC 2.60 L Hgb 7.7 L Hct 22.5 L MCV 87 MCH 29.6 MCHC 34.2 RDW 12.9 Plt Count 460 H Seg Neutrophils % 75.7 Lymphocytes % 13.8 Monocytes % 7.6 Eosinophils % 2.2 Basophils % 0.7 Absolute Neutrophils 8.6 H Absolute Lymphocytes 1.6 Absolute Monocytes 0.9 Absolute Eosinophils 0.2 Absolute Basophils 0.1 Sodium 140.5 Potassium 4.5 Chloride 106 Carbon Dioxide 23 Anion Gap 12 BUN 25 H Creatinine 3.68 H Est GFR ( Amer) 15 L Est GFR (Non-Af Amer) 13 L Glucose 112 H Calcium 8.8 Total Bilirubin 0.4 AST 16 ALT 29 Alkaline Phosphatase 79 Total Protein 6.2 L Albumin 3.0 L 12/29/17 10:57 Bronchial Washings AFB Smear Concentration - Final 12/29/17 10:57 Bronchial Washings Acid Fast Bacilli Smear - Final Impressions: Cervical Spine CT 12/23/17 00:00 IMPRESSION: CHRONIC DEGENERATIVE CHANGES. Postsurgical changes as noted above. Other findings as noted above Head CT 12/23/17 00:00 IMPRESSION: No significant intracranial abnormalities were identified. Other findings as noted above EVIDENCE OF ACUTE STROKE: NO. Chest CT 12/26/17 00:00 IMPRESSION: 1. Progressive more confluent right lower lobe consolidation. 2. Adenopathy, similar to prior. Chest X-Ray 12/29/17 11:00 IMPRESSION: Persistent bilateral lower lobe airspace disease. No pneumothorax. Assessment & Plan - Diagnosis (1) Cryptogenic organizing pneumonia Is this a current diagnosis for this admission?: Yes (2) Right lower lobe pneumonia Qualifiers: Pneumonia type: due to unspecified organism Qualified Code(s): J18.1 - Lobar pneumonia, unspecified organism Is this a current diagnosis for this admission?: Yes (3) Diabetes mellitus type 2 in obese Is this a current diagnosis for this admission?: Yes (4) Lymphedema Is this a current diagnosis for this admission?: Yes (5) Cervicalgia Is this a current diagnosis for this admission?: Yes (6) Acute kidney injury Is this a current diagnosis for this admission?: Yes (7) Anemia Qualifiers: Anemia type: other cause Other causes of anemia: chronic disease, other Qualified Code(s): D63.8 - Anemia in other chronic diseases classified elsewhere Is this a current diagnosis for this admission?: Yes - Plan Summary Plan Summary: Repeat chest x-ray
[2017-12-31] MEDS: INSULIN GLARGINE,HUM.REC.ANLOG 300 UNIT/3 ML INSULN.PEN SUBCUT SCH (22:32)
--- NOTE | 2017-12-31 22:43 | RADIOLOGY REPORT (SQ) ---
EXAM DESCRIPTION: XR CHEST 2 VIEWS COMPLETED DATE/TME: 12/31/2017 10:49 PM CLINICAL HISTORY: pneumonia COMPARISON: December 29, 2017 FINDINGS: Abnormal parenchymal opacities at the lower lungs could be secondary to an infectious process/aspiration. Other etiologies not excluded. Similar findings were noted in the prior exam. Left central venous catheter ends at the level of the superior vena cava. EKG leads project over the chest. Cardiac silhouette is within normal limits. Patient is status post cervical spine surgery. There is mild blunting of the costophrenic angles. IMPRESSION: Abnormal opacities at the lower lungs and mild blunting of the costophrenic angles could be secondary to an infectious process. These are unchanged compared with the prior exam.
[2018-01-01] MEDS: PROMETHAZINE HCL INJ 25 MG/1 ML VIAL IV PRN ×3 (02:25→18:04)
[2018-01-01] MEDS: HYDROMORPHONE HCL INJ/PF 2 MG/ML AMPULE IV PRN ×5 (04:12→18:24)
[2018-01-01] MEDS: NORMAL SALINE 1000 ML 1,000 ML IV PRN ×2 (05:10→11:19)
[2018-01-01] MEDS: LANSOPRAZOLE 30 MG TAB.RAP.DR PO SCH (05:12)
[2018-01-01] MEDS: ACETYLCYSTEINE 20% SOLN 800 MG/4 ML VIAL.NEB NEB SCH ×2 (08:57→20:49)
[2018-01-01] MEDS: LEVALBUTEROL HCL NEB 1.25 MG/3 ML AMPUL NEB SCH ×3 (08:57→20:47)
[2018-01-01] MEDS: SITAGLIPTIN PHOSPHATE 50 MG TABLET PO SCH (09:18)
[2018-01-01] MEDS: LISINOPRIL 10 MG TABLET PO SCH (09:18)
[2018-01-01] MEDS: MULTIVITAMIN TABLET PO SCH (09:19)
[2018-01-01] MEDS: FERROUS SULFATE 325 MG TABLET PO SCH ×2 (09:19→18:24)
[2018-01-01] MEDS: LORATADINE/PSEUDOEPHEDRINE SUL 10-240 MG TAB.SR.24H PO SCH (09:19)
[2018-01-01] MEDS: HYDROCHLOROTHIAZIDE 25 MG TABLET PO SCH (09:23)
[2018-01-01] MEDS: LEVOFLOXACIN 500 MG/D5W RTU 500 MG/100 ML RTUPB IV SCH (09:34)
[2018-01-01 11:25] LABS: ABSOLUTE BASOPHILS # (AUTO) 0.1 10^3/uL (0.0-0.2); ABSOLUTE EOSINOPHILS # (AUTO) 0.2 10^3/uL (0.0-0.6); ABSOLUTE LYMPHOCYTES (AUTO) 1.5 10^3/uL (0.5-4.7); ABSOLUTE MONOCYTES (AUTO) 0.8 10^3/uL (0.1-1.4); ABSOLUTE NEUT (AUTO) 9.3 10^3/uL (1.7-8.2); BASOPHILS % (AUTO) 0.7 % (0-2); EOSINOPHILS % (AUTO) 1.9 % (0-6); HEMATOCRIT 21.7 % (36.0-47.0); LYMPHOCYTES % (AUTO) 12.6 % (13-45); MEAN CORPUSCULAR HEMOGLOBIN 29.2 pg (27.0-33.4); MEAN CORPUSCULAR HGB CONC 33.7 g/dL (32.0-36.0); MEAN CORPUSCULAR VOLUME 87 fl (80-97); MONOCYTES % (AUTO) 6.3 % (3-13); PLATELET COUNT 472 10^3/uL (150-450); RED CELL DISTRIBUTION WIDTH 13.4 % (11.5-14.0); SEGMENTED NEUTROPHILS % (AUTO) 78.5 % (42-78); TOTAL CELLS COUNTED % (AUTO) 100 %; WHITE BLOOD COUNT 11.9 10^3/uL (4.0-10.5)
[2018-01-01 11:27] LABS: HEMOGLOBIN 7.3 g/dL (12.0-15.5)
[2018-01-01 11:40] LABS: ANION GAP 11 (5-19); BLOOD UREA NITROGEN 21 mg/dL (7-20); CALCIUM 8.7 mg/dL (8.4-10.2); CARBON DIOXIDE 26 mmol/L (22-30); CHLORIDE 103 mmol/L (98-107); GLUCOSE 165 mg/dL (75-110); POTASSIUM 4.6 mmol/L (3.6-5.0); SODIUM 139.7 mmol/L (137-145)
[2018-01-01 16:39] LABS: ANTICHROMATIN AB <0.2 AI (0.0-0.9); CENTROMERE B AB <0.2 AI (0.0-0.9); JO-1 ANTIBODY (ANACOMP) <0.2 AI (0.0-0.9); SJOGREN'S ANTI-SS-B AB <0.2 AI (0.0-0.9); SJOGREN'S SS-A ANTIBODY <0.2 AI (0.0-0.9)
--- NOTE | 2018-01-01 20:08 | PDOC PROGRESS REPORT ---
Subjective Progress Note for:: 01/01/18 Subjective:: Patient was seen by the bedside, she is not particularly improving, the BAL did not demonstrate any infection, CT chest without contrast was done, it demonstrated persistent extensive consolidation in the right lower lobe with right pleural effusion, consolidation in the left lower lobe with a small left pleural effusion, there are prominent precarinal lymph nodes Reason For Visit: PERSISTENT FEVER,TACHYCARDIA,RECURRENT Physical Exam Vital Signs: Temp Pulse Resp BP Pulse Ox 98.5 F 109 H 20 141/80 H 96 01/01/18 16:05 01/01/18 16:05 01/01/18 16:05 01/01/18 16:05 01/01/18 16:05 Intake & Output 12/31/17 01/01/18 01/02/18 06:59 06:59 06:59 Intake Total 2479 1200 1115 Output Total 3400 700 Balance 2479 -2200 415 Weight 90 kg 90.6 kg General appearance: PRESENT: no acute distress Eye exam: PRESENT: PERRLA Respiratory exam: PRESENT: clear to auscultation soraya Cardiovascular exam: PRESENT: +S1, +S2 GI/Abdominal exam: PRESENT: soft Neurological exam: PRESENT: alert, CN II-XII grossly intact Results Laboratory Results: 01/01/18 11:10 01/01/18 11:10 01/01/18 01/01/18 11:10 11:10 WBC 11.9 H RBC 2.50 L Hgb 7.3 L Hct 21.7 L MCV 87 MCH 29.2 MCHC 33.7 RDW 13.4 Plt Count 472 H Seg Neutrophils % 78.5 H Lymphocytes % 12.6 L Monocytes % 6.3 Eosinophils % 1.9 Basophils % 0.7 Absolute Neutrophils 9.3 H Absolute Lymphocytes 1.5 Absolute Monocytes 0.8 Absolute Eosinophils 0.2 Absolute Basophils 0.1 Sodium 139.7 Potassium 4.6 Chloride 103 Carbon Dioxide 26 Anion Gap 11 BUN 21 H Creatinine 3.22 H Est GFR ( Amer) 18 L Est GFR (Non-Af Amer) 15 L Glucose 165 H Calcium 8.7 Impressions: Cervical Spine CT 12/23/17 00:00 IMPRESSION: CHRONIC DEGENERATIVE CHANGES. Postsurgical changes as noted above. Other findings as noted above Head CT 12/23/17 00:00 IMPRESSION: No significant intracranial abnormalities were identified. Other findings as noted above EVIDENCE OF ACUTE STROKE: NO. Chest CT 12/26/17 00:00 IMPRESSION: 1. Progressive more confluent right lower lobe consolidation. 2. Adenopathy, similar to prior. Chest X-Ray 12/31/17 00:00 IMPRESSION: Abnormal opacities at the lower lungs and mild blunting of the costophrenic angles could be secondary to an infectious process. These are unchanged compared with the prior exam. Assessment & Plan - Diagnosis (1) Right lower lobe pneumonia Qualifiers: Pneumonia type: due to unspecified organism Qualified Code(s): J18.1 - Lobar pneumonia, unspecified organism Is this a current diagnosis for this admission?: Yes (2) Diabetes mellitus type 2 in obese Is this a current diagnosis for this admission?: Yes (3) Lymphedema Is this a current diagnosis for this admission?: Yes (4) Cervicalgia Is this a current diagnosis for this admission?: Yes (5) Acute kidney injury Is this a current diagnosis for this admission?: Yes Plan: She has acute kidney injury from vancomycin toxicity, kidney function continues to improve (6) Anemia Qualifiers: Anemia type: other cause Other causes of anemia: chronic disease, other Qualified Code(s): D63.8 - Anemia in other chronic diseases classified elsewhere Is this a current diagnosis for this admission?: Yes
[2018-01-01] MEDS: INSULIN GLARGINE,HUM.REC.ANLOG 300 UNIT/3 ML INSULN.PEN SUBCUT SCH (22:00)
[2018-01-02] MEDS: NORMAL SALINE 1000 ML 1,000 ML IV PRN ×2 (04:45→17:15)
[2018-01-02] MEDS: LANSOPRAZOLE 30 MG TAB.RAP.DR PO SCH (05:37)
[2018-01-02] MEDS: PROMETHAZINE HCL INJ 25 MG/1 ML VIAL IV PRN ×2 (07:15→14:53)
[2018-01-02] MEDS: HYDROMORPHONE HCL INJ/PF 2 MG/ML AMPULE IV PRN ×4 (07:15→18:19)
[2018-01-02] MEDS: ACETYLCYSTEINE 20% SOLN 800 MG/4 ML VIAL.NEB NEB SCH ×2 (08:26→20:28)
[2018-01-02] MEDS: LEVALBUTEROL HCL NEB 1.25 MG/3 ML AMPUL NEB SCH ×3 (08:26→20:26)
[2018-01-02] MEDS: SITAGLIPTIN PHOSPHATE 50 MG TABLET PO SCH (10:42)
[2018-01-02] MEDS: FERROUS SULFATE 325 MG TABLET PO SCH ×2 (10:42→17:14)
[2018-01-02] MEDS: LORATADINE/PSEUDOEPHEDRINE SUL 10-240 MG TAB.SR.24H PO SCH (10:42)
[2018-01-02] MEDS: MULTIVITAMIN TABLET PO SCH (10:42)
[2018-01-02] MEDS: HYDROCHLOROTHIAZIDE 25 MG TABLET PO SCH (10:42)
[2018-01-02] MEDS: LISINOPRIL 10 MG TABLET PO SCH (10:42)
[2018-01-02 12:37] LABS: ABSOLUTE BASOPHILS # (AUTO) 0.1 10^3/uL (0.0-0.2); ABSOLUTE EOSINOPHILS # (AUTO) 0.2 10^3/uL (0.0-0.6); ABSOLUTE LYMPHOCYTES (AUTO) 1.6 10^3/uL (0.5-4.7); ABSOLUTE MONOCYTES (AUTO) 0.7 10^3/uL (0.1-1.4); ABSOLUTE NEUT (AUTO) 8.8 10^3/uL (1.7-8.2); BASOPHILS % (AUTO) 0.7 % (0-2); EOSINOPHILS % (AUTO) 1.7 % (0-6); HEMATOCRIT 23.3 % (36.0-47.0); HEMOGLOBIN 8.2 g/dL (12.0-15.5); LYMPHOCYTES % (AUTO) 13.9 % (13-45); MEAN CORPUSCULAR HEMOGLOBIN 30.4 pg (27.0-33.4); MEAN CORPUSCULAR HGB CONC 35.2 g/dL (32.0-36.0); MEAN CORPUSCULAR VOLUME 86 fl (80-97); MONOCYTES % (AUTO) 6.2 % (3-13); PLATELET COUNT 536 10^3/uL (150-450); RED CELL DISTRIBUTION WIDTH 13.4 % (11.5-14.0); SEGMENTED NEUTROPHILS % (AUTO) 77.5 % (42-78); TOTAL CELLS COUNTED % (AUTO) 100 %; WHITE BLOOD COUNT 11.3 10^3/uL (4.0-10.5)
--- NOTE | 2018-01-02 13:00 | RADIOLOGY REPORT (SQ) ---
EXAM DESCRIPTION: CT CHEST WITHOUT COMPLETED DATE/TIME: 01/02/2018 11:47 am REASON FOR STUDY: HIGH RESOLUTION CT CHEST ,r/O INTERSTITIAL LUNG DI COMPARISON: 12/25/2017. CT chest with contrast. TECHNIQUE: CT scan performed of the chest without intravenous contrast. Images reviewed with lung, soft tissue and bone windows. Reconstructed coronal and sagittal MPR images reviewed. All images st ored on PACS. All CT scanners at this facility use dose modulation, iterative reconstruction, and/or weight based d osing when appropriate to reduce radiation dose to as low as reasonably achievable (ALARA). [facility]: Dose Right [facility]: CareDose [facility]: Dose Right [facility]: Teradose 4D [facility]: Smart [employer] RADIATION DOSE: CT Rad equipment meets quality standard of care and radiation dose reduction techniq ues were employed. CTDIvol: 4.6 mGy. DLP: 247 mGy-cm. mGy. LIMITATIONS: No technical limitations. FINDINGS: LUNGS AND PLEURA: There is persistant extensive consolidation noted in the right lower lob e with right pleural effusion. Consolidation left lower lobe with small left pleural effusion. HILAR AND MEDIASTINAL STRUCTURES: Prominent unchanged precarinal node measuring 2.6 x 1.6 cm. Promin ent unchanged subcarinal node measuring 2.2 x 2.2 cm. Small pretracheal node measuring 1.2 x 0.9 cm. Right hilar node unchanged measuring 1.5 cm. HEART AND VASCULAR STRUCTURES: No aneurysm. Small pericardial effusion. UPPER ABDOMEN: The liver, spleen, adrenals demonstrate no abnormality. THYROID AND OTHER SOFT TISSUES: Thyroid: Multinodular enlarged thyroid. BONES: No significant finding. HARDWARE: None in the chest. OTHER: Postsurgical changes medial right breast with calcified mass attributed to fat necrosis IMPRESSION: No significant interval change. TECHNICAL DOCUMENTATION: JOB ID: [id number] SC-69 Quality ID # [id number]: Final reports with documentation of one or more dose reduction techniques (e.g., Au tomated exposure control, adjustment of the mA and/or kV according to patient size, use of iterative reconstruction technique) 2010 [employer]- All Rights Reserved Reading location - IP/workstation name: [email or web address]
[2018-01-02 13:18] LABS: ALANINE AMINOTRANSFERASE 19 U/L (9-52); ALBUMIN 3.2 g/dL (3.5-5.0); ALKALINE PHOSPHATASE 75 U/L (38-126); ANION GAP 11 (5-19); ASPARTATE AMINO TRANSFERASE 13 U/L (14-36); BILIRUBIN,DIRECT 0.4 mg/dL (0.0-0.4); BILIRUBIN,TOTAL 0.6 mg/dL (0.2-1.3); BLOOD UREA NITROGEN 22 mg/dL (7-20); CALCIUM 9.1 mg/dL (8.4-10.2); CARBON DIOXIDE 25 mmol/L (22-30); CHLORIDE 104 mmol/L (98-107); GLUCOSE 85 mg/dL (75-110); POTASSIUM 4.3 mmol/L (3.6-5.0); SODIUM 139.6 mmol/L (137-145); TOTAL PROTEIN 6.5 g/dL (6.3-8.2)
--- NOTE | 2018-01-02 16:01 | PDOC TRANSFER SUMMARY ---
General Admission Date/PCP: 12/18/17 15:46 OSVALDO MONZON MD Transfer Date: 01/02/18 Accepting Facility: [facility] Resuscitation Status: Full Code - Transfer Diagnosis (1) Right lower lobe pneumonia Is this a current diagnosis for this admission?: Yes (2) Diabetes mellitus type 2 in obese Is this a current diagnosis for this admission?: Yes (3) Lymphedema Is this a current diagnosis for this admission?: Yes Diagnosis Summary: She has lymphedema in the left upper extremity secondary to neck surgery that was done at [facility] (4) Cervicalgia Is this a current diagnosis for this admission?: Yes (5) Acute kidney injury Is this a current diagnosis for this admission?: Yes (6) Anemia Is this a current diagnosis for this admission?: Yes (7) Acute tubular necrosis Is this a current diagnosis for this admission?: Yes (8) Multinodular goiter Is this a current diagnosis for this admission?: Yes - Transfer Medications Home Medications: Exenatide Microspheres [Bydureon Bcise] 2 mg SL FR@1000 PRN 12/19/17 Insulin Degludec [Tresiba Flextouch U-100] 48 unit SQ DAILY 12/19/17 Lisinopril/Hydrochlorothiazide [Lisinopril-Hctz 20-25 mg Tab] 1 tab PO DAILY Sitagliptin Phos/Metformin HCl [Janumet Xr 100-1,000 mg Tablet] 1 tab PO DAILY 12/19/17 Transfer Medications: Current Medications Acetaminophen (Tylenol 325 Mg Tablet) 650 mg PO Q6HP PRN PRN Reason: PAIN Stop: 01/17/18 19:59 Last Admin: 12/30/17 10:25 Dose: 650 mg Acetaminophen/Butalbital/Caffeine (Fioricet (50-325-40 Mg) Tablet) 1 tab PO Q4HP PRN PRN Reason: HEADACHE Stop: 01/29/18 15:31 Last Admin: 12/31/17 11:10 Dose: 1 tab Acetylcysteine (Mucomist 20% Soln 800 Mg/4 Ml) 600 mg NEB RTBID HUMZA Stop: 01/20/18 19:59 Last Admin: 01/02/18 08:26 Dose: Not Given Benzonatate (Tessalon Perles 100 Mg Capsule) 100 mg PO Q4HP PRN PRN Reason: COUGH Stop: 01/18/18 17:50 Last Admin: 12/30/17 21:28 Dose: 100 mg Dextrose (Dextrose Inj 50% Syringe (25 Gm/50 Ml)) 12.5 gm IV PRN PRN; Protocol PRN Reason: FOR BG 50-69 IN ALERT PATIENT Stop: 01/17/18 20:00 Dextrose (Dextrose Inj 50% Syringe (25 Gm/50 Ml)) 25 gm IV PRN PRN PRN Reason: Protocol Stop: 01/17/18 20:00 Ferrous Sulfate (Feosol 325 Mg Tablet) 325 mg PO BID HUMZA Stop: 01/23/18 10:59 Last Admin: 01/02/18 10:42 Dose: 325 mg Glucagon (Glucagen Inj 1 Mg Vial) 1 mg IM PRN PRN; Protocol PRN Reason: EVALUATE FOR BG < 70 Stop: 01/17/18 20:00 Glucose (Glutose 40% Gel 15 Gm Tube) 15 gm PO PRN PRN; Protocol PRN Reason: FOR BG 50-69 IN ALERT PATIENT Stop: 01/17/18 20:00 Glucose (Glutose 40% Gel 15 Gm Tube) 30 gm PO PRN PRN; Protocol PRN Reason: FOR BG < 50 IN ALERT PATIENT Stop: 01/17/18 20:00 Guaifenesin (Robitussin Syrup 200 Mg/10 Ml Ud Cup) 100 mg PO Q4HP PRN PRN Reason: COUGH Stop: 01/22/18 09:58 Last Admin: 12/23/17 22:25 Dose: 100 mg Hydrochlorothiazide (Hydrodiuril 25 Mg Tablet) 25 mg PO DAILY [facility]UM[facility] Stop: 01/19/18 15:59 Last Admin: 01/02/18 10:42 Dose: 25 mg Hydromorphone HCl (Dilaudid Inj/Pf 2 Mg/Ml Ampule) 1 mg IV Q4HP PRN PRN Reason: FOR PAIN Stop: 01/07/18 10:27 Last Admin: 01/02/18 14:53 Dose: 1 mg Sodium Chloride (Nacl 0.9% 1000 Ml Iv Soln) 1,000 mls @ 100 mls/hr IV CONTINUOUS PRN PRN Reason: THIS MED IS NOT "PRN" Stop: 01/28/18 20:55 Last Admin: 01/02/18 04:45 Dose: 100 mls/hr Levofloxacin/Dextrose (Levaquin Rtu 500mg/D5w 100 Ml Premix) 500 mg in 100 mls @ 100 mls/hr IV Q2D@2000 [facility] Stop: 01/07/18 19:59 Last Infusion: 01/01/18 21:08 Dose: Infused Insulin Glargine (Lantus Insulin Inj 300 Unit/3 Ml Pen) 50 unit SUBCUT QHS HUMZA Stop: 01/26/18 21:59 Last Admin: 01/01/18 22:00 Dose: 50 units Insulin Human Lispro (Humalog Insulin 100 Unit/1 Ml 3 Ml Vial) 0 - 12 unit SUBCUT ACHSP PRN PRN Reason: Protocol Stop: 01/17/18 20:00 Last Admin: 12/30/17 17:05 Dose: 6 units Lansoprazole (Prevacid 30 Mg Odt Tablet) 30 mg PO Q6AM [facility]UM[facility] Stop: 01/30/18 05:59 Last Admin: 01/02/18 05:37 Dose: 30 mg Levalbuterol HCl (Xopenex Neb 1.25 Mg/3 Ml Ampul) 1.25 mg NEB RTTID [facility] Stop: 01/20/18 15:59 Last Admin: 01/02/18 14:12 Dose: 1.25 mg Lisinopril (Prinivil 10 Mg Tablet) 20 mg PO DAILY [facility] Stop: 01/19/18 15:59 Last Admin: 01/02/18 10:42 Dose: 20 mg Loratadine/Pseudoephedrine Sulfate (Claritin-D 24 Hour Tablet) 1 tab PO DAILY [facility] Stop: 01/29/18 11:59 Last Admin: 01/02/18 10:42 Dose: 1 tab Metformin HCl (Glucophage 500 Mg Tablet) 500 mg PO BIDBS [facility] Stop: 01/19/18 16:59 Last Admin: 12/29/17 09:36 Dose: Not Given Multivitamins (Tab-A-Trinity (Multiple Vitamin) Tablet) 1 tab PO DAILY [facility] Stop: 01/23/18 10:59 Last Admin: 01/02/18 10:42 Dose: 1 tab Ondansetron HCl (Zofran Inj/Pf 4 Mg/2 Ml Sdv) 4 mg IV Q4HP PRN PRN Reason: NAUSEA Stop: 01/24/18 10:18 Last Admin: 12/31/17 08:03 Dose: 4 mg Patient Own Medication (Exenatide Microspheres [Bydureon Bcise]) 2 mg SL .FR@ 1000 [facility] Stop: 01/24/18 09:59 Promethazine HCl (Phenergan Inj 25 Mg/1 Ml Vial) 6.25 mg IV Q4HP PRN PRN Reason: FOR NAUSEA Stop: 01/30/18 10:26 Last Admin: 01/02/18 14:53 Dose: 6.25 mg Sitagliptin Phosphate (Januvia 50 Mg Tablet) 100 mg PO DAILY [facility] Stop: 01/19/18 15:59 Last Admin: 01/02/18 10:42 Dose: 100 mg Zolpidem Tartrate (Ambien 5 Mg Tablet) 5 mg PO HSP PRN PRN Reason: INSOMNIA Stop: 01/07/18 06:10 Last Admin: 01/01/18 21:07 Dose: 5 mg - Allergies Allergies/Adverse Reactions: sulfamethoxazole [From Bactrim] Allergy (Verified 12/03/17 18:36) trimethoprim [From Bactrim] Allergy (Verified 12/03/17 18:36) Hospital Course Hospital Course: Patient 57-year-old female with history of type 2 diabetes mellitus she was admitted on this admission on December 18, 2017 when she came to the office for post hospital discharge follow-up. She was just discharged from [facility] on 12/14/2017 after admission for 3 days for the management of sepsis due to pneumonia, in the office when she came for follow-up evaluation , she was malaise she felt very sick, she had a fever temperature 101, the pulse was 115 because of all this constellation of symptoms and signs, she was admitted directly from the office to the hospital for further evaluation. She was initially admitted at [facility] on 12/04/2017 for the management of right lower lobe pneumonia at the time she was treated with IV antibiotic Rocephin and azithromycin for acquired pneumonia, she was discharged home because she continued to feel sick after discharge from [facility] she returned emergency room on 12/07/2017 with sepsis syndrome include leukocytosis fever she was transferred to [facility] because of the inclement weather. Noriega she was treated with IV vancomycin and cefepime, Legionella and strep pneumonia urine antigen was negative she was discharged home on moxifloxacin. On this admission which was 12/18/[address] chest was done does show multifocal dense consolidation in the right lower lobe. She was treated with IV antibiotic Levaquin cefepime, she was seen in consultation by pulmonary she underwent bronchoscopy with BAL, this was done on 12/29/2017, the final cytologic diagnosis was reactive bronchial revealed benign squamous cells macrophages and blood no acute inflammation or malignancy identified, there was no infectious agent identified from the bronchoscopy. She was evaluated remotely by infectious disease, the recommendation from ID was that this is probably not infection and that all antibiotic to be stopped. She develop acute kidney injury due to vancomycin toxicity, nonoliguric, the kidney function as being progressively improving the creatinine peaked at 4. She also have anemia felt to be due to inflammatory process, she was seen by sheet metal supervisor was in agreement. Since that admission from 12/04/2017 to date no infectious agent has been identified, because we have no definitive diagnosis it was felt that patient needed to be transferred to tertiary care for further evaluation, I spoke to the hospitalist at [facility] Dr. Ramirez, he was kind enough to accept her in transfer, she be transferred to [facility] for further evaluation the CAT scan that was done today, 01/02/2018 demonstrated persistent extensive consolidation in the right lower lobe with pleural effusion now there is left lower lobe involvement with pleural effusion Physical Exam Vital Signs: Temp Pulse Resp BP Pulse Ox 98.7 F 106 H 15 158/87 H 96 01/02/18 11:18 01/02/18 14:12 01/02/18 14:12 01/02/18 11:18 01/02/18 14:12 Intake & Output 01/01/18 01/02/18 01/03/18 06:59 06:59 06:59 Intake Total 1200 2215 222 Output Total 3400 2350 900 Balance -2200 -135 -678 Weight 90.6 kg 89.9 kg General appearance: PRESENT: no acute distress, well-developed, well-nourished Head exam: PRESENT: atraumatic, normocephalic Eye exam: PRESENT: conjunctiva pink, EOMI, PERRLA Ear exam: PRESENT: normal external ear exam Mouth exam: PRESENT: moist, tongue midline Respiratory exam: PRESENT: clear to auscultation soraya Cardiovascular exam: PRESENT: RRR, +S1, +S2 Pulses: PRESENT: normal dorsalis pedis pul Vascular exam: PRESENT: normal capillary refill GI/Abdominal exam: PRESENT: normal bowel sounds, soft Rectal exam: PRESENT: deferred Extremities exam: PRESENT: full ROM Neurological exam: PRESENT: alert, awake, oriented to person, oriented to place , oriented to time, oriented to situation, CN II-XII grossly intact Psychiatric exam: PRESENT: appropriate affect, normal mood Skin exam: PRESENT: dry, intact, warm Results Laboratory Results: 01/02/18 12:11 01/02/18 12:11 01/02/18 01/02/18 12:11 12:11 WBC 11.3 H RBC 2.70 L Hgb 8.2 L Hct 23.3 L MCV 86 MCH 30.4 MCHC 35.2 RDW 13.4 Plt Count 536 H Seg Neutrophils % 77.5 Lymphocytes % 13.9 Monocytes % 6.2 Eosinophils % 1.7 Basophils % 0.7 Absolute Neutrophils 8.8 H Absolute Lymphocytes 1.6 Absolute Monocytes 0.7 Absolute Eosinophils 0.2 Absolute Basophils 0.1 Sodium 139.6 Potassium 4.3 Chloride 104 Carbon Dioxide 25 Anion Gap 11 BUN 22 H Creatinine 2.83 H Est GFR ( Amer) 21 L Est GFR (Non-Af Amer) 17 L Glucose 85 Calcium 9.1 Total Bilirubin 0.6 AST 13 L ALT 19 Alkaline Phosphatase 75 Total Protein 6.5 Albumin 3.2 L 12/29/17 10:57 Bronchial Washings Fungal Smear - Final 12/29/17 10:57 Bronchial Washings Fungal Smear - Final 12/29/17 10:57 Bronchial Washings Gram Stain - Final 12/29/17 10:57 Bronchial Washings Bronchial Washings Culture - Final NORMAL LARA Impressions: Cervical Spine CT 12/23/17 00:00 IMPRESSION: CHRONIC DEGENERATIVE CHANGES. Postsurgical changes as noted above. Other findings as noted above Head CT 12/23/17 00:00 IMPRESSION: No significant intracranial abnormalities were identified. Other findings as noted above EVIDENCE OF ACUTE STROKE: NO. Chest X-Ray 12/31/17 00:00 IMPRESSION: Abnormal opacities at the lower lungs and mild blunting of the costophrenic angles could be secondary to an infectious process. These are unchanged compared with the prior exam. Chest CT 01/02/18 00:00 IMPRESSION: No significant interval change.
[2018-01-02] MEDS: ONDANSETRON HCL INJ/PF 4 MG/2 ML SDV IV PRN (18:13)
[2018-01-02] MEDS: BENZONATATE 100 MG CAPSULE PO PRN (18:19)
[2018-01-02] MEDS: LEVOFLOXACIN 500 MG/D5W RTU 500 MG/100 ML RTUPB IV SCH (20:33)
[2018-01-02] MEDS: INSULIN LISPRO 100 UNIT/ML 3 ML VIAL SUBCUT PRN (22:06)
[2018-01-02] MEDS: INSULIN GLARGINE,HUM.REC.ANLOG 300 UNIT/3 ML INSULN.PEN SUBCUT SCH (22:06)
[2018-01-03] MEDS: BENZONATATE 100 MG CAPSULE PO PRN ×2 (02:31→09:44)
[2018-01-03] MEDS: PROMETHAZINE HCL INJ 25 MG/1 ML VIAL IV PRN ×2 (03:33→12:10)
[2018-01-03] MEDS: NORMAL SALINE 1000 ML 1,000 ML IV PRN (03:38)
[2018-01-03] MEDS: LANSOPRAZOLE 30 MG TAB.RAP.DR PO SCH (05:52)
[2018-01-03 06:53] LABS: DNA DOUBLE STRAND ANTIBODY ANA 1 IU/mL (0-9)
[2018-01-03] MEDS: LEVALBUTEROL HCL NEB 1.25 MG/3 ML AMPUL NEB SCH (08:33)
[2018-01-03] MEDS: ACETYLCYSTEINE 20% SOLN 800 MG/4 ML VIAL.NEB NEB SCH (08:33)
[2018-01-03] MEDS: SITAGLIPTIN PHOSPHATE 50 MG TABLET PO SCH (09:26)
[2018-01-03] MEDS: FERROUS SULFATE 325 MG TABLET PO SCH (09:28)
[2018-01-03] MEDS: LORATADINE/PSEUDOEPHEDRINE SUL 10-240 MG TAB.SR.24H PO SCH (09:28)
[2018-01-03] MEDS: MULTIVITAMIN TABLET PO SCH (09:28)
[2018-01-03] MEDS: HYDROCHLOROTHIAZIDE 25 MG TABLET PO SCH (09:29)
[2018-01-03] MEDS: LISINOPRIL 10 MG TABLET PO SCH (09:29)
[2018-01-03 12:21] VITALS: BP 126/74
--- NOTE | 2018-01-03 14:34 | PDOC PROGRESS REPORT ---
Subjective Progress Note for:: 01/01/18 Subjective:: BETTER TODAY Reason For Visit: PERSISTENT FEVER,TACHYCARDIA,RECURRENT Physical Exam Vital Signs: Temp Pulse Resp BP Pulse Ox 98.1 F 99 18 129/72 H 95 01/01/18 07:44 01/01/18 08:57 01/01/18 08:57 01/01/18 07:44 01/01/18 08:57 Intake & Output 12/31/17 01/01/18 01/02/18 06:59 06:59 06:59 Intake Total 2479 1200 Output Total 3400 Balance 2479 -2200 Weight 90 kg 90.6 kg General appearance: PRESENT: no acute distress, cooperative, disheveled, obese Head exam: PRESENT: atraumatic, normocephalic Eye exam: PRESENT: conjunctiva pale, EOMI. ABSENT: nystagmus, scleral icterus Mouth exam: PRESENT: moist, neck supple, tongue midline Neck exam: ABSENT: carotid bruit, JVD, lymphadenopathy, thyromegaly, tracheal deviation, tracheostomy Respiratory exam: PRESENT: crackles, rhonchi, unlabored. ABSENT: retraction, stridor, tachypnea Cardiovascular exam: PRESENT: RRR, +S1, +S2 Pulses: PRESENT: normal radial pulses GI/Abdominal exam: PRESENT: soft. ABSENT: tenderness Extremities exam: ABSENT: calf tenderness, clubbing, joint swelling Musculoskeletal exam: PRESENT: ambulatory. ABSENT: deformity, dislocation Neurological exam: PRESENT: alert, awake Psychiatric exam: PRESENT: normal mood Skin exam: PRESENT: dry, warm Results Laboratory Results: 12/31/17 10:27 12/31/17 10:27 12/31/17 12/31/17 10:27 10:27 WBC 11.3 H RBC 2.60 L Hgb 7.7 L Hct 22.5 L MCV 87 MCH 29.6 MCHC 34.2 RDW 12.9 Plt Count 460 H Seg Neutrophils % 75.7 Lymphocytes % 13.8 Monocytes % 7.6 Eosinophils % 2.2 Basophils % 0.7 Absolute Neutrophils 8.6 H Absolute Lymphocytes 1.6 Absolute Monocytes 0.9 Absolute Eosinophils 0.2 Absolute Basophils 0.1 Sodium 140.5 Potassium 4.5 Chloride 106 Carbon Dioxide 23 Anion Gap 12 BUN 25 H Creatinine 3.68 H Est GFR ( Amer) 15 L Est GFR (Non-Af Amer) 13 L Glucose 112 H Calcium 8.8 Total Bilirubin 0.4 AST 16 ALT 29 Alkaline Phosphatase 79 Total Protein 6.2 L Albumin 3.0 L 12/29/17 10:57 Bronchial Washings AFB Smear Concentration - Final 12/29/17 10:57 Bronchial Washings Acid Fast Bacilli Smear - Final Impressions: Cervical Spine CT 12/23/17 00:00 IMPRESSION: CHRONIC DEGENERATIVE CHANGES. Postsurgical changes as noted above. Other findings as noted above Head CT 12/23/17 00:00 IMPRESSION: No significant intracranial abnormalities were identified. Other findings as noted above EVIDENCE OF ACUTE STROKE: NO. Chest CT 12/26/17 00:00 IMPRESSION: 1. Progressive more confluent right lower lobe consolidation. 2. Adenopathy, similar to prior. Chest X-Ray 12/31/17 00:00 IMPRESSION: Abnormal opacities at the lower lungs and mild blunting of the costophrenic angles could be secondary to an infectious process. These are unchanged compared with the prior exam. Assessment & Plan - Diagnosis (1) Right lower lobe pneumonia Qualifiers: Pneumonia type: due to unspecified organism Qualified Code(s): J18.1 - Lobar pneumonia, unspecified organism Is this a current diagnosis for this admission?: Yes Plan: Improving (2) Diabetes mellitus type 2 in obese Is this a current diagnosis for this admission?: Yes Plan: Stop prednisone for the time being this may in and of itself spuriously elevated white count. (3) Anemia Qualifiers: Anemia type: other cause Other causes of anemia: chronic disease, other Qualified Code(s): D63.8 - Anemia in other chronic diseases classified elsewhere Is this a current diagnosis for this admission?: Yes (4) Acute renal failure (ARF) Is this a current diagnosis for this admission?: Yes Plan: Some improvement awaiting nephrology
== END 2018-01-03 12:51 | disposition short-term general hospital (02) | DRG 872 ==
LOC: 3S 15:46
PROVIDERS: ADMIT Internal Medicine; ATTEND Internal Medicine
PROC: 02HV33Z Insertion of Infusion Device into Superior Vena Cava, Percutaneous Approach (ICD-10-PCS; principal; 2017-12-22)
PROC: 0B9M7ZX Drainage of Bilateral Lungs, Via Natural or Artificial Opening, Diagnostic (ICD-10-PCS; 2017-12-29)
DX: A41.9 Sepsis, unspecified organism (principal); J84.116 Cryptogenic organizing pneumonia; N17.8 Other acute kidney failure; T36.8X5A Adverse effect of other systemic antibiotics, initial encounter; N14.1 Nephropathy induced by other drugs, medicaments and biological substances; E11.8 Type 2 diabetes mellitus with unspecified complications; I10 Essential (primary) hypertension; J45.909 Unspecified asthma, uncomplicated; M54.2 Cervicalgia; D63.8 Anemia in other chronic diseases classified elsewhere; I89.0 Lymphedema, not elsewhere classified; Y92.230 Patient room in hospital as the place of occurrence of the external cause; Z79.4 Long term (current) use of insulin; Z87.891 Personal history of nicotine dependence
CPT/HCPCS: 31624; 36415; 520; 70450; 71045; 71046; 71250; 71260; 72125; 80048; 80053; 80076; 80202; 81001; 82565; 82607; 82728; 82746; 82962; 83036; 83540; 83550; 83735; 84156; 84166; 85025; 85027; 85045; 85610; 85730; 86140; 86225; 86235; 86320; 86335; 86701; 86702; 87015; 87040; 87070; 87086; 87101; 87116; 87205; 87206; 89050; 93005; 93010; 94640; 94667; 94668; 94761; C1751; J0696; J1170; J1642; J1815; J1885; J1940; J1956; J2250; J2405; J2550; J2704; J3370; J3490; J7030; J7060; J7512

== ENCOUNTER → 2018-05-21 | Outpatient (CLI) | payer MEDICARE, MEDICAID ==
--- NOTE | 2018-05-21 16:19 | WOMENS IMAGING REPORT ---
EXAM DESCRIPTION: 3D SCREENING MAMMO BILAT COMPLETED DATE/TIME: 05/21/2018 3:36 pm REASON FOR STUDY: ROUTINE BILATERAL SCREENING,Z12.31 Z12.31 ENCNTR SCREEN MAMMOGRAM FOR MALIGNANT N EOPLASM OF ALETHA COMPARISON: None. TECHNIQUE: Standard craniocaudal and mediolateral oblique views of each breast recorded using digita l acquisition and breast tomosynthesis. LIMITATIONS: None. FINDINGS: No masses, calcifications or architectural distortion. No areas of suspicion. Read with the assistance of CAD. .[facility] - R2 Cenova Version 1.3 .[facility] - R2 Cenova Version 2.1 .[facility] - R2 Cenova Version 2.4 .[facility] - R2 Cenova Version 2.4 .[facility] - R2 Internet Marketing Assistant Version 9.2 IMPRESSION: NORMAL MAMMOGRAM. BIRADS 1. BREAST DENSITY: b. There are scattered areas of fibroglandular density. BIRAD: 1 NEGATIVE RECOMMENDATION: ROUTINE SCREENING COMMENT: The patient has been notified of the results by letter per SA requirements. Additional no tification policies are in place for contacting patient with suspicious or incomplete findings. Quality ID #[id number]: The [employer] recommends an annual screening mammogram for women aged 40 years or over. This facility utilizes a reminder system to ensure that all patients receive reminder letters, and/or direct phone calls for appointments. This includes reminders for routine scr eening mammograms, diagnostic mammograms, or other Breast Imaging Interventions when appropriate. Th is patient will be placed in the appropriate reminder system. The [employer] (ACR) has developed recommendations for screening MRI of the breast s in certain patient populations, to be used in conjunction with mammography. Breast MRI surveillanc e may be appropriate for women with more than 20% lifetime risk of developing breast cancer as deter mined by genetic testing, significant family history of the disease, or history of mantle radiation f or Hodgkins Disease. ACR Practice Guidelines 2008. DBT Technology DBT is a type of tomographic mammography. With conventional mammography, overlapping breast tissue ma y make lesions difficult to detect, even with good compression. DBT uses an x-ray tube that rotates a round the breast, taking images at different angles. These images are then combined to create thin sl ices of the breast that the radiologist can view as a 3D reconstruction. The [employer] unit can perform full-field digital mammograms (2D imaging); or DBT (3D imaging); or both, in a combination mode that quickly performs both the mammogram and the tomosynthesis scan while the breast is still compressed. PQRS 6045F: Fluoroscopic imaging is not utilized for breast tomosynthesis. TECHNICAL DOCUMENTATION: FINDING NUMBER: (1) ASSESSMENT: (1) JOB ID: [id number] [employer]- All Rights Reserved Reading location - IP/workstation name: [email or web address]-
== END ==
LOC: WI 15:08
PROVIDERS: ATTEND Internal Medicine
DX: Z12.31 Encounter for screening mammogram for malignant neoplasm of breast (principal)
CPT/HCPCS: 77063; 77067

== ENCOUNTER 2018-09-09 12:54 | Inpatient (IN) | payer MEDICARE, MEDICAID ==
--- NOTE | 2018-09-09 13:24 | ER Document Report ---
ED Medical Screen (RME) - General Chief Complaint: Headache Stated Complaint: BODY PAIN Time Seen by Provider: 09/09/18 13:17 Primary Care Provider: OSVALDO MONZON MD [Primary Care Provider] - Follow up as needed Mode of Arrival: Ambulatory Information source: Patient Notes: 58-year-old female presented to ED for complaint of a headache behind the eyes across the forehead across the top of the head periauricular and down both sides of her neck. She states she does have a history of high blood pressure and diabetes. Her apical pulse was 136 temperature 99.2 blood sugar 174 blood pressure 129/76 while I was examining her. Patient is alert and oriented able to answer questions appropriately walks with a even steady but gait and lungs are clear to auscultation. I have greeted and performed a rapid initial assessment of this patient. A comprehensive ED assessment and evaluation of the patient, analysis of test results and completion of medical decision making process will be conducted by an additional ED providers. Dictation of this chart was performed using voice recognition software; therefore, there may be some unintended grammatical errors. TRAVEL OUTSIDE OF THE [place] IN LAST 30 DAYS: No - Related Data Allergies/Adverse Reactions: sulfamethoxazole [From Bactrim] Allergy (Verified 09/09/18 12:55) trimethoprim [From Bactrim] Allergy (Verified 09/09/18 12:55) Past Medical History - Past Medical History Cardiac Medical History: Reports: Hx Hypertension Pulmonary Medical History: Reports: Hx Asthma, Hx Bronchitis Endocrine Medical History: Reports: Hx Diabetes Mellitus Type 1, Hx Diabetes Mellitus Type 2 Renal/ Medical History: Denies: Hx Peritoneal Dialysis GI Medical History: Reports: Hx Irritable Bowel Past Surgical History: Reports: Hx Abdominal Surgery - hiatal hernia repair, Hx Breast Surgery - benign cyst removed right, Hx Gynecologic Surgery - partial hy sterectomy, Hx Orthopedic Surgery - lumbar spine x 2, neck surg 06/13, Hx Umbilical Hernia, Hx Urinary Tract Surgery - bladder tach - Immunizations Hx Diphtheria, Pertussis, Tetanus Vaccination: No Physical Exam - Vital signs Vitals: Temp Pulse Resp BP Pulse Ox 99.1 F 132 H 16 129/76 H 95 09/09/18 12:59 09/09/18 12:59 09/09/18 12:59 09/09/18 12:59 09/09/18 12:59 Course - Vital Signs Vital signs: Temp Pulse Resp BP Pulse Ox 99.1 F 132 H 16 129/76 H 95 09/09/18 12:59 09/09/18 12:59 09/09/18 12:59 09/09/18 12:59 09/09/18 12:59 Doctor's Discharge - Discharge Referrals: OSVALDO MONZON MD [Primary Care Provider] - Follow up as needed
[2018-09-09] MEDS ORDERED: NORMAL SALINE 1000 ML 1,000 ML IV ONE ×2 (13:25→15:38)
[2018-09-09 14:53] LABS: APPEARANCE,URINE CLEAR; BILIRUBIN,URINE NEGATIVE (NEGATIVE); COLOR,URINE YELLOW; GLUCOSE, URINE NEGATIVE (NEGATIVE); KETONES,URINE TRACE mg/dL (NEGATIVE); LEUKOCYTE ESTERASE,URINE NEGATIVE (NEGATIVE); NITRITE,URINE NEGATIVE (NEGATIVE); PROTEIN,URINE NEGATIVE (NEGATIVE); UROBILINOGEN,URINE NEGATIVE mg/dL (<2.0)
--- NOTE | 2018-09-09 14:58 | RADIOLOGY REPORT (SQ) ---
EXAM DESCRIPTION: CT HEAD WITHOUT COMPLETED DATE/TIME: 09/09/2018 2:47 pm REASON FOR STUDY: Head and facial pain, postauricular pain COMPARISON: 12/23/2017 TECHNIQUE: Axial images acquired through the brain without intravenous contrast. Images reviewed wi th bone, brain and subdural windows. Additional sagittal and coronal reconstructions were generated. Images stored on PACS. All CT scanners at this facility use dose modulation, iterative reconstruction, and/or weight based d osing when appropriate to reduce radiation dose to as low as reasonably achievable (ALARA). [facility]: Dose Right [facility]: CareDose [facility]: Dose Right [facility]: Teradose 4D [facility]: Smart Wireless [employer]z RADIATION DOSE: CT Rad equipment meets quality standard of care and radiation dose reduction techniq ues were employed. CTDIvol: 53.2 mGy. DLP: 1017 mGy-cm. mGy. LIMITATIONS: None. FINDINGS: VENTRICLES: Normal size and contour. CEREBRUM: No masses. No hemorrhage. No midline shift. No evidence for acute infarction. Normal gra y/white matter differentiation. No areas of low density in the white matter. CEREBELLUM: No masses. No hemorrhage. No alteration of density. No evidence for acute infarction. EXTRAAXIAL SPACES: No fluid collections. No masses. ORBITS AND GLOBE: No intra- or extraconal masses. Normal contour of globe without masses. CALVARIUM: No fracture. PARANASAL SINUSES: No fluid or mucosal thickening. SOFT TISSUES: No mass or hematoma. OTHER: No other significant finding. IMPRESSION: NORMAL BRAIN CT WITHOUT CONTRAST. EVIDENCE OF ACUTE STROKE: NO. COMMENT: Quality ID # [id number]: Final reports with documentation of one or more dose reduction techniques (e.g., Automated exposure control, adjustment of the mA and/or kV according to patient size, use of iterative reconstruction technique) TECHNICAL DOCUMENTATION: JOB ID: [id number] [employer]- All Rights Reserved Reading location - IP/workstation name: [email or web address]
[2018-09-09 15:35] LABS: ABSOLUTE EOSINOPHILS # (AUTO) 0.1 10^3/uL (0.0-0.6); ABSOLUTE LYMPHOCYTES (AUTO) 2.6 10^3/uL (0.5-4.7); ABSOLUTE MONOCYTES (AUTO) 0.5 10^3/uL (0.1-1.4); ABSOLUTE NEUT (AUTO) 4.3 10^3/uL (1.7-8.2); BASOPHILS % (AUTO) 0.5 % (0-2); EOSINOPHILS % (AUTO) 1.5 % (0-6); HEMATOCRIT 35.4 % (36.0-47.0); LYMPHOCYTES % (AUTO) 34.1 % (13-45); MEAN CORPUSCULAR HEMOGLOBIN 30.7 pg (27.0-33.4); MEAN CORPUSCULAR HGB CONC 33.9 g/dL (32.0-36.0); MEAN CORPUSCULAR VOLUME 90 fl (80-97); PLATELET COUNT 340 10^3/uL (150-450); RED BLOOD COUNT 3.92 10^6/uL (3.72-5.28); RED CELL DISTRIBUTION WIDTH 12.9 % (11.5-14.0); SEGMENTED NEUTROPHILS % (AUTO) 56.9 % (42-78); TOTAL CELLS COUNTED % (AUTO) 100 %; WHITE BLOOD COUNT 7.6 10^3/uL (4.0-10.5)
[2018-09-09 15:39] LABS: INTERNATIONAL RATION (INR) 1.01; PROTHROMBIN TIME 13.8 SEC (11.4-15.4)
[2018-09-09 15:40] LABS: PARTIAL THROMBOPLASTIN TIME 35.3 SEC (23.5-35.8)
[2018-09-09] MEDS ORDERED: ACETAMINOPHEN 325 MG TABLET PO ONE (15:55)
[2018-09-09] MEDS ORDERED: MORPHINE SULFATE 10 MG/ML INJ IV ONE (15:56)
[2018-09-09 15:59] LABS: ALANINE AMINOTRANSFERASE 44 U/L (9-52); ALBUMIN 4.5 g/dL (3.5-5.0); ALKALINE PHOSPHATASE 79 U/L (38-126); ANION GAP 10 (5-19); ASPARTATE AMINO TRANSFERASE 38 U/L (14-36); BILIRUBIN,DIRECT 0.3 mg/dL (0.0-0.4); BILIRUBIN,TOTAL 0.9 mg/dL (0.2-1.3); BLOOD UREA NITROGEN 12 mg/dL (7-20); CALCIUM 10.2 mg/dL (8.4-10.2); CARBON DIOXIDE 30 mmol/L (22-30); CHLORIDE 100 mmol/L (98-107); GLUCOSE 158 mg/dL (75-110); POTASSIUM 4.1 mmol/L (3.6-5.0); TOTAL PROTEIN 7.7 g/dL (6.3-8.2)
--- NOTE | 2018-09-09 16:11 | ER Document Report ---
ED General - General Chief Complaint: Headache Stated Complaint: BODY PAIN Time Seen by Provider: 09/09/18 13:17 Primary Care Provider: OSVALDO MONZON MD [Primary Care Provider] - Follow up as needed Mode of Arrival: Ambulatory TRAVEL OUTSIDE OF THE [place] IN LAST 30 DAYS: No - HPI Notes: Patient is a 58-year-old female that presents to the emergency department for chief complaint of headache. Patient states that yesterday afternoon she had gradual onset of a headache that she describes as a throbbing sensation. Headache is located across her forehead and then down the right lateral aspect of her neck. She denies aggravating or relieving factors. She did take 2 Tylenol last night which she believes did not help her symptoms. Patient states today she took her temperature noticed she had a fever. She did notify her primary care doctor's office who referred her to the emergency room. Patient also reporting right sciatic pain which is chronic and unchanged for her. She denies any cough, congestion, nausea/vomiting, diarrhea and abdominal pain. She does report some urinary frequency but denies dysuria. Past Medical History: Hypertension, diabetes Past Surgical History: Reviewed in chart Social History: Denies tobacco and alcohol use Family History: Reviewed and noncontributory for presenting illness Allergies: Reviewed, see documented allergy list. REVIEW OF SYSTEMS: CONSTITUTIONAL : fever No chills No diaphoresis No recent illness EENT: No vision changes No congestion No sore throat CARDIOVASCULAR: No chest pain No palpitations RESPIRATORY: No shortness of breath No cough No difficulty breathing GASTROINTESTINAL: No abdominal pain No nausea No vomiting No diarrhea GENITOURINARY: No dysuria Urinary frequency No hematuria No difficulty urinating MUSCULOSKELETAL: back pain No leg pain No arm pain SKIN: No rashes No lesions LYMPHATIC: No swollen, enlarged glands. NEUROLOGICAL: No lightheadedness headache No weakness No paresthesias PSYCHIATRIC: No anxiety No depression PHYSICAL EXAMINATION: Vital signs reviewed, nursing noted reviewed. GENERAL: Ill-appearing, well-nourished and in no acute distress. HEAD: Atraumatic, normocephalic. EYES: Eyes appear normal, extraocular movements intact, sclera anicteric, conjunctiva are normal. ENT: nares patent, oropharynx clear without exudates. Moist mucous membranes. NECK: Right paraspinal muscle tenderness and spasm, no midline cervical spine tenderness or left paraspinal tenderness, normal range of motion, supple without lymphadenopathy. Negative jolt sign LUNGS: Breath sounds clear to auscultation bilaterally and equal. No wheezes rales or rhonchi. HEART: Tachycardic rate and regular rhythm without murmurs ABDOMEN: Soft, nontender, normoactive bowel sounds. No rebound, guarding, or rigidity. No masses appreciated. EXTREMITIES: Nontender, good range of motion, trace pretibial edema NEUROLOGICAL: No focal neurological deficits. Moves all extremities spontaneously Motor and sensory grossly intact on exam. PSYCH: Tearful, normal affect. SKIN: Warm, Dry, normal turgor, no rashes or lesions noted on exposed skin - Related Data Allergies/Adverse Reactions: sulfamethoxazole [From Bactrim] Allergy (Verified 09/09/18 12:55) trimethoprim [From Bactrim] Allergy (Verified 09/09/18 12:55) Past Medical History - General Information source: Patient - Social History Smoking Status: Never Smoker Frequency of alcohol use: None Drug Abuse: None Family History: Other - family members have uri Patient has suicidal ideation: No Patient has homicidal ideation: No - Past Medical History Cardiac Medical History: Reports: Hx Hypertension Pulmonary Medical History: Reports: Hx Asthma, Hx Bronchitis Endocrine Medical History: Reports: Hx Diabetes Mellitus Type 1, Hx Diabetes Mellitus Type 2 Renal/ Medical History: Denies: Hx Peritoneal Dialysis GI Medical History: Reports: Hx Irritable Bowel Past Surgical History: Reports: Hx Abdominal Surgery - hiatal hernia repair, Hx Breast Surgery - benign cyst removed right, Hx Gynecologic Surgery - partial hysterectomy, Hx Orthopedic Surgery - lumbar spine x 2, neck surg 06/13, Hx Umbilical Hernia, Hx Urinary Tract Surgery - bladder tach - Immunizations Hx Diphtheria, Pertussis, Tetanus Vaccination: No Physical Exam - Vital signs Vitals: Temp Pulse Resp BP Pulse Ox 99.1 F 132 H 16 129/76 H 95 09/09/18 12:59 09/09/18 12:59 09/09/18 12:59 09/09/18 12:59 09/09/18 12:59 Course - Re-evaluation Re-evalutation: 09/09/18 16:11 Vitals reviewed. Nursing notes reviewed. Patient presented to the emergency room febrile and tachycardic. She has been ordered IV fluids, morphine and Tylenol for symptom medic management. CT scan of her brain shows no acute intracranial process as an etiology of her headache. 09/09/18 16:44 Patient has no leukocytosis. At this point without leukocytosis and with full range of motion of her cervical spine I do not feel is caused by meningitis. I do not feel she is requiring lumbar puncture currently. Patient does have significant hyperthyroidism which is likely causing her tachycardia and potentially her fever as well. Patient care was discussed with Dr. Monzon who will admit her to the hospital for further management. Patient in agreement with plan of care. Laboratory 09/09/18 09/09/18 09/09/18 13:19 13:35 15:17 WBC 7.6 RBC 3.92 Hgb 12.0 Hct 35.4 L MCV 90 MCH 30.7 MCHC 33.9 RDW 12.9 Plt Count 340 Seg Neutrophils % 56.9 Lymphocytes % 34.1 Monocytes % 7.0 Eosinophils % 1.5 Basophils % 0.5 Absolute Neutrophils 4.3 Absolute Lymphocytes 2.6 Absolute Monocytes 0.5 Absolute Eosinophils 0.1 Absolute Basophils 0.0 PT INR APTT VBG pH VBG pCO2 VBG HCO3 VBG Base Excess Sodium Potassium Chloride Carbon Dioxide Anion Gap BUN Creatinine Est GFR ( Amer) Est GFR (Non-Af Amer) Glucose POC Glucose 174 H Calcium Total Bilirubin Direct Bilirubin Neonat Total Bilirubin Neonat Direct Bilirubin Neonat Indirect Bili AST ALT Alkaline Phosphatase Total Protein Albumin TSH Free T4 Free T3 pg/mL Urine Color YELLOW Urine Appearance CLEAR Urine pH 5.0 Ur Specific [place] 1.010 Urine Protein NEGATIVE Urine Glucose (UA) NEGATIVE Urine Ketones TRACE H Urine Blood NEGATIVE Urine Nitrite NEGATIVE Urine Bilirubin NEGATIVE Urine Urobilinogen NEGATIVE Ur Leukocyte Esterase NEGATIVE Urine WBC (Auto) 1 Urine RBC (Auto) 1 Squamous Epi Cells Auto 2 Urine Mucus (Auto) RARE Urine Ascorbic Acid NEGATIVE 09/09/18 09/09/18 09/09/18 15:17 15:17 15:17 WBC RBC Hgb Hct MCV MCH MCHC RDW Plt Count Seg Neutrophils % Lymphocytes % Monocytes % Eosinophils % Basophils % Absolute Neutrophils Absolute Lymphocytes Absolute Monocytes Absolute Eosinophils Absolute Basophils PT 13.8 INR 1.01 APTT 35.3 VBG pH VBG pCO2 VBG HCO3 VBG Base Excess Sodium 140.0 Potassium 4.1 Chloride 100 Carbon Dioxide 30 Anion Gap 10 BUN 12 Creatinine 0.94 Est GFR ( Amer) > 60 Est GFR (Non-Af Amer) > 60 Glucose 158 H POC Glucose Calcium 10.2 Total Bilirubin 0.9 Direct Bilirubin 0.3 Neonat Total Bilirubin Not Reportable Neonat Direct Bilirubin Not Reportable Neonat Indirect Bili Not Reportable AST 38 H ALT 44 Alkaline Phosphatase 79 Total Protein 7.7 Albumin 4.5 TSH 0.06 L Free T4 6.20 H Free T3 pg/mL > 22.80 H Urine Color Urine Appearance Urine pH Ur Specific Isle Urine Protein Urine Glucose (UA) Urine Ketones Urine Blood Urine Nitrite Urine Bilirubin Urine Urobilinogen Ur Leukocyte Esterase Urine WBC (Auto) Urine RBC (Auto) Squamous Epi Cells Auto Urine Mucus (Auto) Urine Ascorbic Acid 09/09/18 16:11 WBC RBC Hgb Hct MCV MCH MCHC RDW Plt Count Seg Neutrophils % Lymphocytes % Monocytes % Eosinophils % Basophils % Absolute Neutrophils Absolute Lymphocytes Absolute Monocytes Absolute Eosinophils Absolute Basophils PT INR APTT VBG pH 7.37 VBG pCO2 48.6 VBG HCO3 27.3 VBG Base Excess 1.4 Sodium Potassium Chloride Carbon Dioxide Anion Gap BUN Creatinine Est GFR ( Amer) Est GFR (Non-Af Amer) Glucose POC Glucose Calcium Total Bilirubin Direct Bilirubin Neonat Total Bilirubin Neonat Direct Bilirubin Neonat Indirect Bili AST ALT Alkaline Phosphatase Total Protein Albumin TSH Free T4 Free T3 pg/mL Urine Color Urine Appearance Urine pH Ur Specific [place] Urine Protein Urine Glucose (UA) Urine Ketones Urine Blood Urine Nitrite Urine Bilirubin Urine Urobilinogen Ur Leukocyte Esterase Urine WBC (Auto) Urine RBC (Auto) Squamous Epi Cells Auto Urine Mucus (Auto) Urine Ascorbic Acid Head CT 09/09/18 13:21 IMPRESSION: NORMAL BRAIN CT WITHOUT CONTRAST. EVIDENCE OF ACUTE STROKE: NO. Chest X-Ray 09/09/18 15:35 IMPRESSION: NO ACUTE RADIOGRAPHIC FINDING IN THE CHEST. - Vital Signs Vital signs: Temp Pulse Resp BP Pulse Ox 100.5 F H 132 H 20 124/66 97 09/09/18 16:14 09/09/18 12:59 09/09/18 16:01 09/09/18 16:01 09/09/18 16:01 - Laboratory Result Diagrams: 09/09/18 15:17 09/09/18 15:17 Laboratory results interpreted by me: 09/09/18 09/09/18 09/09/18 13:19 13:35 15:17 Hct 35.4 L Glucose POC Glucose 174 H AST TSH Free T4 Free T3 pg/mL Urine Ketones TRACE H 09/09/18 09/09/18 15:17 15:17 Hct Glucose 158 H POC Glucose AST 38 H TSH 0.06 L Free T4 6.20 H Free T3 pg/mL > 22.80 H Urine Ketones - EKG Interpretation by Me Additional EKG results interpreted by me: 09/09/18 16:10 Interpreted by myself 1558: Sinus tachycardia, rate 128, borderline left axis, no ectopy, no STEMI Discharge - Discharge Clinical Impression: Hyperthyroidism, Tachycardia Fever Qualifiers: Fever type: due to other condition Qualified Code(s): R50.81 - Fever presenting with conditions classified elsewhere Headache Qualifiers: Headache type: unspecified Headache chronicity pattern: acute headache Intractability: not intractable Qualified Code(s): R51 - Headache Condition: Good Disposition: ADMITTED INPATIENT Admitting Provider: [facility] Admitted: [facility] Referrals: OSVALDO MONZON MD [Primary Care Provider] - Follow up as needed
[2018-09-09 16:19] LABS: VENOUS BLOOD BASE EXCESS 1.4 mmol/L; VENOUS BLOOD HCO3 27.3 mmol/L (20-32); VENOUS BLOOD PCO2 48.6 mmHg (35-63); VENOUS BLOOD PH 7.37 (7.30-7.42)
[2018-09-09 16:28] LABS: THYROID STIMULATING HORMONE 0.06 uIU/mL (0.47-4.68)
[2018-09-09 16:29] LABS: FREE T3 > 22.80 pg/mL (2.77-5.27)
--- NOTE | 2018-09-09 16:45 | RADIOLOGY REPORT (SQ) ---
EXAM DESCRIPTION: CHEST SINGLE VIEW COMPLETED DATE/TIME: 09/09/2018 3:49 pm REASON FOR STUDY: fever COMPARISON: CT chest 01/02/2018 Two-view chest 12/31/2017 EXAM PARAMETERS: NUMBER OF VIEWS: One view. TECHNIQUE: Single frontal radiographic view of the chest acquired. RADIATION DOSE: NA LIMITATIONS: None. FINDINGS: LUNGS AND PLEURA: Right lower lobe lung parenchymal scarring is present. No acute infiltrates. No pleural effusion or pneumothorax. MEDIASTINUM AND HILAR STRUCTURES: No masses. Contour normal. HEART AND VASCULAR STRUCTURES: Heart normal in size. Normal vasculature. BONES: Lower cervical fusion hardware HARDWARE: None in the chest. OTHER: No other significant finding. IMPRESSION: NO ACUTE RADIOGRAPHIC FINDING IN THE CHEST. TECHNICAL DOCUMENTATION: JOB ID: [id number] [employer]- All Rights Reserved Reading location - IP/workstation name: [email or web address]
--- NOTE | 2018-09-09 18:47 | EKG REPORT ---
SEVERITY:- ABNORMAL ECG - ATRIAL-SENSED VENTRICULAR-PACED COMPLEXES BORDERLINE LEFT AXIS DEVIATION : Confirmed by: Micky Bhatt MD 09-Sep-2018 18:46:52
[2018-09-09] MEDS: ACETAMINOPHEN 325 MG TABLET PO PRN (19:37)
[2018-09-09 20:05] LABS: INTERNATIONAL RATION (INR) 1.06; PROTHROMBIN TIME 14.4 SEC (11.4-15.4)
[2018-09-09 20:06] LABS: PARTIAL THROMBOPLASTIN TIME 33.9 SEC (23.5-35.8)
[2018-09-09 20:15] LABS: PHOSPHORUS 4.6 mg/dL (2.5-4.5)
--- NOTE | 2018-09-09 20:27 | PDOC H&P ---
History of Present Illness Admission Date/PCP: 09/09/18 16:53 OSVALDO MONZON MD History of Present Illness: ADELITA BOTELLO is a 58 year old female,She came primarily to the emergency room for evaluation of headache, body aches and fever, the headache is of 2 days duration throbbing in character mainly in the forehead area seems to affect the temporal area as well,in the emergency room a CAT scan of the head was done, it was negative for any acute pathology.. She supposedly had infection of the tooth according to she was prescribed penicillin by the dentist but she never filled the prescription, I inspected the mouth but I do not appreciate any area of dental caries that would necessarily cause a fever. The thyroid function test that was drawn in the emergency room suggest hyperthyroid state a TSH is 0.04, the T4 is elevated.She will need a thyroid scan and uptake to confirm if this is a true hyperthyroid state or just a state of thyrotoxicosis due to inflammatory thyroid disease Past Medical History Cardiac Medical History: Reports: Hypertension Pulmonary Medical History: Reports: Asthma, Bronchitis Endocrine Medical History: Reports: Diabetes Mellitus Type 2 Psychiatric Medical History: Reports: Depression Past Surgical History Past Surgical History: Reports: Orthopedic Surgery - lumbar spine x 2, neck surg 06/13 Social History Smoking Status: Former Smoker Cigarettes Packs Per Day: 0.5 Number of Years Smokin Frequency of Alcohol Use: None Hx Recreational Drug Use: No Drugs: None Hx Prescription Drug Abuse: No Family History Family History: Other - family members have uri Parental Family History Reviewed: Yes Children Family History Reviewed: Yes Sibling(s) Family History Reviewed.: Yes Medication/Allergy Home Medications: Ibuprofen [Motrin 800 mg Tablet] 800 mg PO Q6HP PRN 09/09/18 Insulin Degludec [Tresiba] 50 unit SQ QHS 09/09/18 Lisinopril/Hydrochlorothiazide [Lisinopril-Hctz 20-25 mg Tab] 1 each PO DAILY 09/09/18 Allergies/Adverse Reactions: sulfamethoxazole [From Bactrim] Allergy (Verified 09/09/18 12:55) trimethoprim [From Bactrim] Allergy (Verified 09/09/18 12:55) Review of Systems Constitutional: PRESENT: chills, fever(s), headache(s). ABSENT: weight gain, weight loss Eyes: ABSENT: visual disturbances Ears: ABSENT: hearing changes Cardiovascular: ABSENT: chest pain, dyspnea on exertion, edema, orthropnea, palpitations Respiratory: ABSENT: cough, hemoptysis Gastrointestinal: ABSENT: abdominal pain, constipation, diarrhea, hematemesis, hematochezia, nausea, vomiting Genitourinary: ABSENT: dysuria, hematuria Musculoskeletal: ABSENT: joint swelling Integumentary: ABSENT: rash, wounds Neurological: ABSENT: abnormal gait, abnormal speech, confusion, dizziness, focal weakness, syncope Psychiatric: ABSENT: anxiety, depression, homidical ideation, suicidal ideation Endocrine: ABSENT: cold intolerance, heat intolerance, menstrual abnormalities, polydipsia, polyuria Hematologic/Lymphatic: ABSENT: easy bleeding, easy bruising, lymphadenopathy Physical Exam Vital Signs: Temp Pulse Resp BP Pulse Ox 98.8 F 111 H 18 120/70 97 09/09/18 19:34 09/09/18 19:34 09/09/18 19:34 09/09/18 19:34 09/09/18 19:34 Intake & Output 09/08/18 09/09/18 09/10/18 06:59 06:59 06:59 Intake Total 1999 Balance 1999 Weight 91.4 kg General appearance: PRESENT: no acute distress Head exam: PRESENT: atraumatic, normocephalic Eye exam: PRESENT: PERRLA Neck exam: PRESENT: full ROM Respiratory exam: PRESENT: clear to auscultation soraya Cardiovascular exam: PRESENT: RRR, +S1, +S2 Vascular exam: PRESENT: normal capillary refill GI/Abdominal exam: PRESENT: normal bowel sounds, soft Rectal exam: PRESENT: deferred Neurological exam: PRESENT: alert, CN II-XII grossly intact Psychiatric exam: PRESENT: appropriate affect, normal mood Skin exam: PRESENT: dry, intact, warm Results Laboratory Results: 09/09/18 15:17 09/09/18 15:17 09/09/18 09/09/18 09/09/18 13:35 15:17 15:17 WBC 7.6 RBC 3.92 Hgb 12.0 Hct 35.4 L MCV 90 MCH 30.7 MCHC 33.9 RDW 12.9 Plt Count 340 Seg Neutrophils % 56.9 Lymphocytes % 34.1 Monocytes % 7.0 Eosinophils % 1.5 Basophils % 0.5 Absolute Neutrophils 4.3 Absolute Lymphocytes 2.6 Absolute Monocytes 0.5 Absolute Eosinophils 0.1 Absolute Basophils 0.0 VBG pH VBG pCO2 VBG HCO3 VBG Base Excess Sodium 140.0 Potassium 4.1 Chloride 100 Carbon Dioxide 30 Anion Gap 10 BUN 12 Creatinine 0.94 Est GFR ( Amer) > 60 Est GFR (Non-Af Amer) > 60 Glucose 158 H Lactic Acid Calcium 10.2 Phosphorus Magnesium Total Bilirubin 0.9 AST 38 H ALT 44 Alkaline Phosphatase 79 Total Protein 7.7 Albumin 4.5 TSH Free T4 Free T3 pg/mL Urine Color YELLOW Urine Appearance CLEAR Urine pH 5.0 Ur Specific [place] 1.010 Urine Protein NEGATIVE Urine Glucose (UA) NEGATIVE Urine Ketones TRACE H Urine Blood NEGATIVE Urine Nitrite NEGATIVE Ur Leukocyte Esterase NEGATIVE Urine WBC (Auto) 1 Urine RBC (Auto) 1 09/09/18 09/09/18 09/09/18 15:17 16:11 16:11 WBC RBC Hgb Hct MCV MCH MCHC RDW Plt Count Seg Neutrophils % Lymphocytes % Monocytes % Eosinophils % Basophils % Absolute Neutrophils Absolute Lymphocytes Absolute Monocytes Absolute Eosinophils Absolute Basophils VBG pH 7.37 VBG pCO2 48.6 VBG HCO3 27.3 VBG Base Excess 1.4 Sodium Potassium Chloride Carbon Dioxide Anion Gap BUN Creatinine Est GFR ( Amer) Est GFR (Non-Af Amer) Glucose Lactic Acid 1.5 Calcium Phosphorus Magnesium Total Bilirubin AST ALT Alkaline Phosphatase Total Protein Albumin TSH 0.06 L Free T4 6.20 H Free T3 pg/mL > 22.80 H Urine Color Urine Appearance Urine pH Ur Specific [place] Urine Protein Urine Glucose (UA) Urine Ketones Urine Blood Urine Nitrite Ur Leukocyte Esterase Urine WBC (Auto) Urine RBC (Auto) 09/09/18 19:46 WBC RBC Hgb Hct MCV MCH MCHC RDW Plt Count Seg Neutrophils % Lymphocytes % Monocytes % Eosinophils % Basophils % Absolute Neutrophils Absolute Lymphocytes Absolute Monocytes Absolute Eosinophils Absolute Basophils VBG pH VBG pCO2 VBG HCO3 VBG Base Excess Sodium Potassium Chloride Carbon Dioxide Anion Gap BUN Creatinine Est GFR ( Amer) Est GFR (Non-Af Amer) Glucose Lactic Acid Calcium Phosphorus 4.6 H Magnesium 1.9 Total Bilirubin AST ALT Alkaline Phosphatase Total Protein Albumin TSH Free T4 Free T3 pg/mL Urine Color Urine Appearance Urine pH Ur Specific [place] Urine Protein Urine Glucose (UA) Urine Ketones Urine Blood Urine Nitrite Ur Leukocyte Esterase Urine WBC (Auto) Urine RBC (Auto) 09/09/18 09/09/18 19:46 19:46 Creatine Kinase 174 H NT-Pro-B Natriuret Pep 57 Impressions: Head CT 09/09/18 13:21 IMPRESSION: NORMAL BRAIN CT WITHOUT CONTRAST. EVIDENCE OF ACUTE STROKE: NO. Chest X-Ray 09/09/18 15:35 IMPRESSION: NO ACUTE RADIOGRAPHIC FINDING IN THE CHEST. Assessment & Plan - Diagnosis (1) Thyrotoxicosis Qualifiers: Thyrotoxicosis type: unspecified thyrotoxicosis type Thyrotoxic crisis or storm presence: without thyrotoxic crisis or storm Qualified Code(s): E05.90 - Thyrotoxicosis, unspecified without thyrotoxic crisis or storm Is this a current diagnosis for this admission?: Yes Plan: She has evidence of thyrotoxicosis there is fever, headache, tachycardia, all these are manifestation of thyrotoxicosis with a background of elevated T4, T3 with a low TSH (2) Fever Qualifiers: Fever type: due to other condition Qualified Code(s): R50.81 - Fever presenting with conditions classified elsewhere Is this a current diagnosis for this admission?: Yes (3) Headache Qualifiers: Headache type: unspecified Headache chronicity pattern: acute headache Intractability: not intractable Qualified Code(s): R51 - Headache Is this a current diagnosis for this admission?: Yes
[2018-09-09 20:28] LABS: CREATINE KINASE MB 1.12 ng/mL (<4.55)
[2018-09-09 20:32] LABS: TROPONIN I < 0.012 ng/mL
[2018-09-09] MEDS: HYDROMORPHONE HCL INJ/PF 2 MG/ML AMPULE IV PRN (21:02)
[2018-09-09 21:34] LABS: APPEARANCE,URINE CLEAR; BILIRUBIN,URINE NEGATIVE (NEGATIVE); COLOR,URINE YELLOW; GLUCOSE, URINE 50 mg/dL (NEGATIVE); KETONES,URINE NEGATIVE (NEGATIVE); LEUKOCYTE ESTERASE,URINE NEGATIVE (NEGATIVE); NITRITE,URINE NEGATIVE (NEGATIVE); PROTEIN,URINE NEGATIVE (NEGATIVE); URINE SPECIFIC GRAVITY 1.012; UROBILINOGEN,URINE NEGATIVE mg/dL (<2.0)
[2018-09-09 22:16] LABS: URINE AMPHETAMINES SCREEN NEGATIVE
[2018-09-09 22:23] LABS: URINE BARBITURATES SCREEN NEGATIVE; URINE BENZODIAZEPINES SCREEN NEGATIVE; URINE COCAINE SCREEN NEGATIVE; URINE MARIJUANA (THC) SCREEN NEGATIVE; URINE METHADONE SCREEN NEGATIVE; URINE PHENCYCLIDINE SCREEN NEGATIVE
[2018-09-10] MEDS: ENOXAPARIN SODIUM INJ 40 MG/0.4 ML DISP.SYRIN SUBCUT SCH ×2 (00:45→11:55)
[2018-09-10] MEDS: HYDROMORPHONE HCL INJ/PF 2 MG/ML AMPULE IV PRN ×2 (01:07→12:27)
[2018-09-10 03:07] LABS: CREATINE KINASE MB 0.77 ng/mL (<4.55)
[2018-09-10 03:09] LABS: TROPONIN I < 0.012 ng/mL
[2018-09-10] MEDS: ACETAMINOPHEN 325 MG TABLET PO PRN ×4 (03:57→20:28)
[2018-09-10 07:57] LABS: ABSOLUTE BASOPHILS # (AUTO) 0.1 10^3/uL (0.0-0.2); ABSOLUTE LYMPHOCYTES (AUTO) 2.7 10^3/uL (0.5-4.7); ABSOLUTE MONOCYTES (AUTO) 0.7 10^3/uL (0.1-1.4); ABSOLUTE NEUT (AUTO) 6.3 10^3/uL (1.7-8.2); BASOPHILS % (AUTO) 0.7 % (0-2); EOSINOPHILS % (AUTO) 0.2 % (0-6); HEMATOCRIT 31.6 % (36.0-47.0); HEMOGLOBIN 10.6 g/dL (12.0-15.5); LYMPHOCYTES % (AUTO) 27.7 % (13-45); MEAN CORPUSCULAR HEMOGLOBIN 30.9 pg (27.0-33.4); MEAN CORPUSCULAR HGB CONC 33.5 g/dL (32.0-36.0); MEAN CORPUSCULAR VOLUME 92 fl (80-97); MONOCYTES % (AUTO) 6.9 % (3-13); PLATELET COUNT 294 10^3/uL (150-450); RED BLOOD COUNT 3.44 10^6/uL (3.72-5.28); SEGMENTED NEUTROPHILS % (AUTO) 64.5 % (42-78); TOTAL CELLS COUNTED % (AUTO) 100 %; WHITE BLOOD COUNT 9.8 10^3/uL (4.0-10.5)
[2018-09-10 08:10] LABS: ALANINE AMINOTRANSFERASE 40 U/L (9-52); ALBUMIN 3.6 g/dL (3.5-5.0); ALKALINE PHOSPHATASE 59 U/L (38-126); AMYLASE 63 U/L (30-110); ANION GAP 7 (5-19); ASPARTATE AMINO TRANSFERASE 29 U/L (14-36); BILIRUBIN,DIRECT 0.2 mg/dL (0.0-0.4); BILIRUBIN,TOTAL 0.8 mg/dL (0.2-1.3); BLOOD UREA NITROGEN 15 mg/dL (7-20); CALCIUM 9.3 mg/dL (8.4-10.2); CARBON DIOXIDE 27 mmol/L (22-30); CHLORIDE 102 mmol/L (98-107); CREATINE KINASE 147 U/L (30-135); GLUCOSE 316 mg/dL (75-110); LIPASE 211.4 U/L (23-300); POTASSIUM 4.2 mmol/L (3.6-5.0); SODIUM 136.3 mmol/L (137-145); TOTAL PROTEIN 6.2 g/dL (6.3-8.2)
[2018-09-10 08:26] LABS: CREATINE KINASE MB 0.57 ng/mL (<4.55)
[2018-09-10 08:29] LABS: TROPONIN I < 0.012 ng/mL
[2018-09-10 08:32] LABS: FREE T4 (FREE THYROXINE) 5.35 ng/dL (0.78-2.19)
[2018-09-10] MEDS ORDERED: INSULIN LISPRO 100 UNIT/ML 3 ML VIAL ONE (08:43)
[2018-09-10 08:50] LABS: FREE T3 > 22.80 pg/mL (2.77-5.27); THYROID STIMULATING HORMONE < 0.01 uIU/mL (0.47-4.68)
[2018-09-10] MEDS ORDERED: DEXTROSE 50%-WATER SYRINGE 25 GM/50 ML DOSE IV PRN (09:30)
[2018-09-10] MEDS ORDERED: DEXTROSE 50%-WATER SYRINGE 12.5 GM/25 ML DOSE IV PRN (09:30)
[2018-09-10] MEDS ORDERED: DEXTROSE 40% GEL 15 GM TUBE X 2 PO PRN (09:30)
[2018-09-10] MEDS ORDERED: DEXTROSE 40% GEL 15 GM TUBE PO PRN (09:30)
[2018-09-10] MEDS ORDERED: GLUCAGON,HUMAN RECOMB 1 MG INJ IM PRN (09:30)
[2018-09-10] MEDS: INSULIN LISPRO 100 UNIT/ML 3 ML VIAL SUBCUT SCH ×3 (11:52→22:27)
[2018-09-10] MEDS: CLINDAMYCIN 600 MG/D5W RTU 600 MG/50 ML RTUPB IV SCH (19:14)
--- NOTE | 2018-09-10 20:41 | PDOC PROGRESS REPORT ---
Subjective Progress Note for:: 09/10/18 Subjective:: She has fever the etiology is not clear but because she has infected tooth she will empirically be treated with clindamycin Reason For Visit: HYPERTHYROIDISM, HEADACHE, DM2 Physical Exam Vital Signs: Temp Pulse Resp BP Pulse Ox 101.0 F H 123 H 22 H 164/76 H 95 09/10/18 16:12 09/10/18 19:38 09/10/18 16:12 09/10/18 16:12 09/10/18 16:12 Intake & Output 09/09/18 09/10/18 09/11/18 06:59 06:59 06:59 Intake Total 2485 356 Output Total 320 1050 Balance 2165 -694 Weight 93.2 kg 93.2 kg General appearance: PRESENT: no acute distress Eye exam: PRESENT: PERRLA Respiratory exam: PRESENT: clear to auscultation soraya Cardiovascular exam: PRESENT: +S1, +S2 GI/Abdominal exam: PRESENT: soft Neurological exam: PRESENT: alert Results Laboratory Results: 09/10/18 07:39 09/10/18 07:39 09/09/18 09/10/18 09/10/18 20:50 07:39 07:39 WBC 9.8 RBC 3.44 L Hgb 10.6 L Hct 31.6 L MCV 92 MCH 30.9 MCHC 33.5 RDW 13.0 Plt Count 294 Seg Neutrophils % 64.5 Lymphocytes % 27.7 Monocytes % 6.9 Eosinophils % 0.2 Basophils % 0.7 Absolute Neutrophils 6.3 Absolute Lymphocytes 2.7 Absolute Monocytes 0.7 Absolute Eosinophils 0.0 Absolute Basophils 0.1 Sodium 136.3 L Potassium 4.2 Chloride 102 Carbon Dioxide 27 Anion Gap 7 BUN 15 Creatinine 0.99 Est GFR ( Amer) > 60 Est GFR (Non-Af Amer) 58 L Glucose 316 H Calcium 9.3 Total Bilirubin 0.8 AST 29 ALT 40 Alkaline Phosphatase 59 Ammonia Total Protein 6.2 L Albumin 3.6 Amylase 63 Lipase 211.4 TSH Free T4 Free T3 pg/mL Urine Color YELLOW Urine Appearance CLEAR Urine pH 5.0 Ur Specific [place] 1.012 Urine Protein NEGATIVE Urine Glucose (UA) 50 H Urine Ketones NEGATIVE Urine Blood NEGATIVE Urine Nitrite NEGATIVE Ur Leukocyte Esterase NEGATIVE Urine WBC (Auto) 2 Urine RBC (Auto) 1 09/10/18 09/10/18 07:39 07:39 WBC RBC Hgb Hct MCV MCH MCHC RDW Plt Count Seg Neutrophils % Lymphocytes % Monocytes % Eosinophils % Basophils % Absolute Neutrophils Absolute Lymphocytes Absolute Monocytes Absolute Eosinophils Absolute Basophils Sodium Potassium Chloride Carbon Dioxide Anion Gap BUN Creatinine Est GFR ( Amer) Est GFR (Non-Af Amer) Glucose Calcium Total Bilirubin AST ALT Alkaline Phosphatase Ammonia < 8.7 L Total Protein Albumin Amylase Lipase TSH < 0.01 L Free T4 5.35 H Free T3 pg/mL > 22.80 H Urine Color Urine Appearance Urine pH Ur Specific [place] Urine Protein Urine Glucose (UA) Urine Ketones Urine Blood Urine Nitrite Ur Leukocyte Esterase Urine WBC (Auto) Urine RBC (Auto) 09/09/18 09/09/18 09/09/18 19:46 19:46 19:46 Creatine Kinase 174 H CK-MB (CK-2) 1.12 Troponin I < 0.012 NT-Pro-B Natriuret Pep 57 09/10/18 09/10/18 09/10/18 01:55 01:55 07:39 Creatine Kinase 168 H 147 H CK-MB (CK-2) 0.77 Troponin I < 0.012 NT-Pro-B Natriuret Pep 09/10/18 07:39 Creatine Kinase CK-MB (CK-2) 0.57 Troponin I < 0.012 NT-Pro-B Natriuret Pep Impressions: Head CT 09/09/18 13:21 IMPRESSION: NORMAL BRAIN CT WITHOUT CONTRAST. EVIDENCE OF ACUTE STROKE: NO. Chest X-Ray 09/09/18 15:35 IMPRESSION: NO ACUTE RADIOGRAPHIC FINDING IN THE CHEST. Assessment & Plan - Diagnosis (1) Thyrotoxicosis Qualifiers: Thyrotoxicosis type: unspecified thyrotoxicosis type Thyrotoxic crisis or storm presence: without thyrotoxic crisis or storm Qualified Code(s): E05.90 - Thyrotoxicosis, unspecified without thyrotoxic crisis or storm Is this a current diagnosis for this admission?: Yes (2) Fever Qualifiers: Fever type: due to other condition Qualified Code(s): R50.81 - Fever presenting with conditions classified elsewhere Is this a current diagnosis for this admission?: Yes (3) Headache Qualifiers: Headache type: unspecified Headache chronicity pattern: acute headache Intractability: not intractable Qualified Code(s): R51 - Headache Is this a current diagnosis for this admission?: Yes (4) Gingivitis Is this a current diagnosis for this admission?: Yes Plan: Start clindamycin
[2018-09-11] MEDS: HYDROMORPHONE HCL INJ/PF 2 MG/ML AMPULE IV PRN ×4 (03:19→23:16)
[2018-09-11] MEDS: CLINDAMYCIN 600 MG/D5W RTU 600 MG/50 ML RTUPB IV SCH ×3 (03:29→17:25)
[2018-09-11 05:25] LABS: ABSOLUTE EOSINOPHILS # (AUTO) 0.2 10^3/uL (0.0-0.6); ABSOLUTE LYMPHOCYTES (AUTO) 2.2 10^3/uL (0.5-4.7); ABSOLUTE MONOCYTES (AUTO) 0.7 10^3/uL (0.1-1.4); ABSOLUTE NEUT (AUTO) 3.2 10^3/uL (1.7-8.2); BASOPHILS % (AUTO) 0.4 % (0-2); EOSINOPHILS % (AUTO) 3.2 % (0-6); HEMOGLOBIN 10.2 g/dL (12.0-15.5); LYMPHOCYTES % (AUTO) 34.3 % (13-45); MEAN CORPUSCULAR HEMOGLOBIN 30.9 pg (27.0-33.4); MEAN CORPUSCULAR VOLUME 91 fl (80-97); MONOCYTES % (AUTO) 10.9 % (3-13); PLATELET COUNT 264 10^3/uL (150-450); RED CELL DISTRIBUTION WIDTH 12.8 % (11.5-14.0); SEGMENTED NEUTROPHILS % (AUTO) 51.2 % (42-78); TOTAL CELLS COUNTED % (AUTO) 100 %; WHITE BLOOD COUNT 6.3 10^3/uL (4.0-10.5)
[2018-09-11] MEDS: INSULIN LISPRO 100 UNIT/ML 3 ML VIAL SUBCUT SCH ×4 (07:51→21:47)
[2018-09-11] MEDS: ENOXAPARIN SODIUM INJ 40 MG/0.4 ML DISP.SYRIN SUBCUT SCH (09:28)
--- NOTE | 2018-09-11 15:08 | PDOC PROGRESS REPORT ---
Subjective Progress Note for:: 09/11/18 Subjective:: She was seen by the bedside, she stated that since the antibiotic clindamycin was started, the fever has subsided and the headache is improved, she has no more headache she feels much better Reason For Visit: HYPERTHYROIDISM, HEADACHE, DM2 Physical Exam Vital Signs: Temp Pulse Resp BP Pulse Ox 99.6 F 117 H 18 121/69 96 09/11/18 11:32 09/11/18 14:00 09/11/18 11:32 09/11/18 11:32 09/11/18 11:32 Intake & Output 09/10/18 09/11/18 09/12/18 06:59 06:59 06:59 Intake Total 2485 606 288 Output Total 320 2200 500 Balance 0443 -7506 -731 Weight 93.2 kg 91.9 kg General appearance: PRESENT: no acute distress Eye exam: PRESENT: PERRLA Respiratory exam: PRESENT: clear to auscultation soraya Cardiovascular exam: PRESENT: +S1, +S2 GI/Abdominal exam: PRESENT: soft Neurological exam: PRESENT: alert Results Laboratory Results: 09/11/18 04:57 09/10/18 07:39 09/11/18 04:57 WBC 6.3 RBC 3.30 L Hgb 10.2 L Hct 30.0 L MCV 91 MCH 30.9 MCHC 34.0 RDW 12.8 Plt Count 264 Seg Neutrophils % 51.2 Lymphocytes % 34.3 Monocytes % 10.9 Eosinophils % 3.2 Basophils % 0.4 Absolute Neutrophils 3.2 Absolute Lymphocytes 2.2 Absolute Monocytes 0.7 Absolute Eosinophils 0.2 Absolute Basophils 0.0 09/09/18 09/09/18 09/09/18 19:46 19:46 19:46 Creatine Kinase 174 H CK-MB (CK-2) 1.12 Troponin I < 0.012 NT-Pro-B Natriuret Pep 57 09/10/18 09/10/18 09/10/18 01:55 01:55 07:39 Creatine Kinase 168 H 147 H CK-MB (CK-2) 0.77 Troponin I < 0.012 NT-Pro-B Natriuret Pep 09/10/18 07:39 Creatine Kinase CK-MB (CK-2) 0.57 Troponin I < 0.012 NT-Pro-B Natriuret Pep Impressions: Head CT 09/09/18 13:21 IMPRESSION: NORMAL BRAIN CT WITHOUT CONTRAST. EVIDENCE OF ACUTE STROKE: NO. Chest X-Ray 09/09/18 15:35 IMPRESSION: NO ACUTE RADIOGRAPHIC FINDING IN THE CHEST. Assessment & Plan - Diagnosis (1) Thyrotoxicosis Qualifiers: Thyrotoxicosis type: unspecified thyrotoxicosis type Thyrotoxic crisis or storm presence: without thyrotoxic crisis or storm Qualified Code(s): E05.90 - Thyrotoxicosis, unspecified without thyrotoxic crisis or storm Is this a current diagnosis for this admission?: Yes (2) Fever Qualifiers: Fever type: due to other condition Qualified Code(s): R50.81 - Fever presenting with conditions classified elsewhere Is this a current diagnosis for this admission?: Yes (3) Headache Qualifiers: Headache type: unspecified Headache chronicity pattern: acute headache Intractability: not intractable Qualified Code(s): R51 - Headache Is this a current diagnosis for this admission?: Yes (4) Gingivitis Is this a current diagnosis for this admission?: Yes
[2018-09-12] MEDS: CLINDAMYCIN 600 MG/D5W RTU 600 MG/50 ML RTUPB IV SCH ×2 (02:33→09:23)
[2018-09-12 04:42] LABS: ABSOLUTE EOSINOPHILS # (AUTO) 0.3 10^3/uL (0.0-0.6); ABSOLUTE LYMPHOCYTES (AUTO) 2.5 10^3/uL (0.5-4.7); ABSOLUTE MONOCYTES (AUTO) 0.8 10^3/uL (0.1-1.4); ABSOLUTE NEUT (AUTO) 2.9 10^3/uL (1.7-8.2); BASOPHILS % (AUTO) 0.6 % (0-2); EOSINOPHILS % (AUTO) 4.7 % (0-6); HEMATOCRIT 30.5 % (36.0-47.0); HEMOGLOBIN 10.3 g/dL (12.0-15.5); LYMPHOCYTES % (AUTO) 38.4 % (13-45); MEAN CORPUSCULAR HEMOGLOBIN 30.8 pg (27.0-33.4); MEAN CORPUSCULAR HGB CONC 33.7 g/dL (32.0-36.0); MEAN CORPUSCULAR VOLUME 91 fl (80-97); MONOCYTES % (AUTO) 11.6 % (3-13); PLATELET COUNT 251 10^3/uL (150-450); RED BLOOD COUNT 3.34 10^6/uL (3.72-5.28); RED CELL DISTRIBUTION WIDTH 12.7 % (11.5-14.0); SEGMENTED NEUTROPHILS % (AUTO) 44.7 % (42-78); TOTAL CELLS COUNTED % (AUTO) 100 %; WHITE BLOOD COUNT 6.6 10^3/uL (4.0-10.5)
[2018-09-12] MEDS: INSULIN LISPRO 100 UNIT/ML 3 ML VIAL SUBCUT SCH ×2 (07:55→12:00)
[2018-09-12] MEDS: ENOXAPARIN SODIUM INJ 40 MG/0.4 ML DISP.SYRIN SUBCUT SCH (09:23)
[2018-09-12] MEDS ORDERED: (PENDING PHARMACY ID) (Lisinopril/Hydrochlorothiazide [Lisinopril-Hctz 20-25 Mg Tab] 1 EAC PO SCH (11:00)
--- NOTE | 2018-09-12 11:21 | PDOC DISCHARGE SUMMARY ---
General - Admit/Disc Date/PCP Admission Date/Primary Care Provider: 09/09/18 16:54 OSVALDO MONZON MD Discharge Date: 09/12/18 - Discharge Diagnosis (1) Thyrotoxicosis Is this a current diagnosis for this admission?: Yes (2) Fever Is this a current diagnosis for this admission?: Yes (3) Headache Is this a current diagnosis for this admission?: Yes (4) Gingivitis Is this a current diagnosis for this admission?: Yes - Additional Information Prescriptions: RX: Clindamycin HCl [Cleocin 300 mg Capsule] 300 mg PO Q8H #15 capsule Ertugliflozin Pidolate [Steglatro] 15 mg PO DAILY #30 tablet Semaglutide [Ozempic] 0.25 mg SQ Q7D #4 pen.injctr Home Medications: RX: Insulin Degludec [Tresiba] 50 unit SQ QHS 09/09/18 RX: Lisinopril/Hydrochlorothiazide [Lisinopril-Hctz 20-25 mg Tab] 1 each PO DAILY 09/09/18 Ertugliflozin Pidolate [Steglatro] 15 mg PO DAILY #30 tablet 09/12/18 RX: Acetaminophen [Tylenol 325 mg Tablet] 325 mg PO Q4HP PRN #0 tablet 09/12/18 RX: Clindamycin HCl [Cleocin 300 mg Capsule] 300 mg PO Q8H #15 capsule 09/12/18 RX: Insulin Lispro [Humalog Insulin (Lispro) 100 unit/mL] 0 - 12 unit SUBCUT ACHS unit 09/12/18 Semaglutide [Ozempic] 0.25 mg SQ Q7D #4 pen.injctr 09/12/18 History of Present Illness History of Present Illness: ADELITA BOTELLO is a 58 year old female,She came primarily to the emergency room for evaluation of headache, body aches and fever, the headache is of 2 days duration throbbing in character mainly in the forehead area seems to affect the temporal area as well,in the emergency room a CAT scan of the head was done, it was negative for any acute pathology.. She supposedly had infection of the tooth according to she was prescribed penicillin by the dentist but she never filled the prescription, I inspected the mouth but I do not appreciate any area of dental caries that would necessarily cause a fever. The thyroid function test that was drawn in the emergency room suggest hyperthyroid state a TSH is 0.04, the T4 is elevated.She will need a thyroid scan and uptake to confirm if this is a true hyperthyroid state or just a state of thyrotoxicosis due to inflammatory thyroid disease Hospital Course Hospital Course: She was admitted for the management of, fever, headache and palpitation, the blood test that was done suggest hyperthyroidism, the symptoms with background of hyperthyroidism suggests thyrotoxicosis. She was to have thyroid scan and uptake to confirm hyperthyroid state and to help differentiate the etiology of the thyrotoxicosis unfortunately the isotope for the test is not available, the reagent will not be available until later part of this week so this to be done outpatient. She has gingivitis as well, this was treated with IV antibiotic clindamycin, this seems to help the headache and the tachycardia. Physical Exam Vital Signs: Temp Pulse Resp BP Pulse Ox 98.2 F 99 16 118/71 96 09/12/18 07:29 09/12/18 07:29 09/12/18 07:29 09/12/18 07:29 09/12/18 07:29 Intake & Output 09/11/18 09/12/18 09/13/18 06:59 06:59 06:59 Intake Total 606 1369 50 Output Total 2200 800 Balance -1594 569 50 Weight 91.9 kg 91 kg General appearance: PRESENT: no acute distress, well-developed, well-nourished Head exam: PRESENT: atraumatic, normocephalic Eye exam: PRESENT: conjunctiva pink, EOMI, PERRLA Ear exam: PRESENT: normal external ear exam Mouth exam: PRESENT: moist, tongue midline Neck exam: PRESENT: full ROM Respiratory exam: PRESENT: clear to auscultation soraya Cardiovascular exam: PRESENT: RRR, +S1, +S2 Pulses: PRESENT: normal dorsalis pedis pul, +2 pedal pulses bilateral Vascular exam: PRESENT: normal capillary refill GI/Abdominal exam: PRESENT: normal bowel sounds, soft Rectal exam: PRESENT: deferred Neurological exam: PRESENT: alert, awake, oriented to person, oriented to place, oriented to time, oriented to situation, CN II-XII grossly intact Psychiatric exam: PRESENT: appropriate affect, normal mood Skin exam: PRESENT: dry, intact, warm Results Laboratory Results: 09/12/18 04:20 09/10/18 07:39 09/12/18 04:20 WBC 6.6 RBC 3.34 L Hgb 10.3 L Hct 30.5 L MCV 91 MCH 30.8 MCHC 33.7 RDW 12.7 Plt Count 251 Seg Neutrophils % 44.7 Lymphocytes % 38.4 Monocytes % 11.6 Eosinophils % 4.7 Basophils % 0.6 Absolute Neutrophils 2.9 Absolute Lymphocytes 2.5 Absolute Monocytes 0.8 Absolute Eosinophils 0.3 Absolute Basophils 0.0 09/09/18 13:35 Clean Catch Midstream Urine Culture - Final Mixed Urogenital Emmy 09/09/18 09/09/18 09/09/18 19:46 19:46 19:46 Creatine Kinase 174 H CK-MB (CK-2) 1.12 Troponin I < 0.012 NT-Pro-B Natriuret Pep 57 09/10/18 09/10/18 09/10/18 01:55 01:55 07:39 Creatine Kinase 168 H 147 H CK-MB (CK-2) 0.77 Troponin I < 0.012 NT-Pro-B Natriuret Pep 09/10/18 07:39 Creatine Kinase CK-MB (CK-2) 0.57 Troponin I < 0.012 NT-Pro-B Natriuret Pep Impressions: Head CT 09/09/18 13:21 IMPRESSION: NORMAL BRAIN CT WITHOUT CONTRAST. EVIDENCE OF ACUTE STROKE: NO. Chest X-Ray 09/09/18 15:35 IMPRESSION: NO ACUTE RADIOGRAPHIC FINDING IN THE CHEST. Qualifiers - * PATIENT BEING DISCHARGED WITH ANY OF THE FOLLOWING DIAGNOSIS: No VTE patient discharged on overlapping Therapy?: No Reason(s) for not prescribing Overlap Therapy:: Not indicated Stroke Pt being discharged on Anti-thrombolytic therapy?: No Reason(s) for not prescribing Anti-thrombolytic therapy:: Not indicated Stroke Pt being discharged on Anti-coagulation therapy?: No Reason(s) for not prescribing Anti-coagulation therapy:: Not indicated Stroke Pt being discharged on Statins?: No Reason(s) for not prescribing Statins therapy:: Not indicated MA Pt being discharged on Aspirin therapy?: No Reason(s) for not prescribing Aspirin therapy:: Not indicated MA Pt being discharged on Statins?: No Reason(s) for not prescribing Statin therapy:: Not indicated MA Pt discharged ACEI/ARBS?: No Reason(s) for not prescribing ACEI/ARBS:: Not indicated Acute Heart Failure - Is this a Heart Failure Patient?: No 3. Anticoagulant therapy for permanect/persistent/paraoxysmal Afib or Aflutter: N/A
[2018-09-12] MEDS ORDERED: LISINOPRIL 10 MG TABLET PO SCH ×2 (11:45→13:00)
[2018-09-12 11:59] VITALS: BP 113/59
[2018-09-12] MEDS ORDERED: HYDROCHLOROTHIAZIDE 25 MG TABLET PO SCH (13:00)
[2018-09-12] MEDS ORDERED: INSULIN DEGLUDEC 50 UNIT SQ SCH (22:00)
[2018-09-13] MEDS ORDERED: LISINOPRIL 10 MG TABLET PO SCH (10:00)
== END 2018-09-12 12:59 | disposition home or self-care (01) | DRG 645 ==
LOC: ER 12:54 → EH 16:53 → INTOOBSV 16:53 → OBSVTOIN 16:54 → 3S 18:13 → OBSVTOIN 09-11 14:22
PROVIDERS: ADMIT Internal Medicine; ATTEND Internal Medicine
DX: E05.90 Thyrotoxicosis, unspecified without thyrotoxic crisis or storm (principal); I10 Essential (primary) hypertension; R00.0 Tachycardia, unspecified; R50.81 Fever presenting with conditions classified elsewhere; K05.10 Chronic gingivitis, plaque induced; R51 Headache; Z79.4 Long term (current) use of insulin; Z79.899 Other long term (current) drug therapy
CPT/HCPCS: 36415; 70450; 71045; 80053; 80307; 81001; 82140; 82150; 82550; 82553; 82803; 82962; 83036; 83605; 83690; 83735; 83880; 84100; 84439; 84443; 84481; 84484; 85025; 85610; 85730; 87040; 87086; 93005; 93010; 96361; 96374; 99285; G0378; J1170; J1650; J1815; J2270; J7030

== ENCOUNTER → 2019-01-05 | Outpatient (CLI) | payer MEDICAID, MEDICARE ==
[2019-01-05 13:28] LABS: FREE T4 (FREE THYROXINE) 1.32 ng/dL (0.78-2.19)
[2019-01-05 13:42] LABS: THYROID STIMULATING HORMONE 0.77 uIU/mL (0.47-4.68)
== END ==
LOC: OD 12:04
PROVIDERS: ATTEND Otolaryngology
DX: E04.2 Nontoxic multinodular goiter (principal)
CPT/HCPCS: 36415; 82306; 83970; 84439; 84443

== ENCOUNTER → 2019-01-21 | Outpatient (CLI) | payer MEDICAID, MEDICARE ==
--- NOTE | 2019-01-21 13:06 | WOMENS IMAGING REPORT ---
EXAM DESCRIPTION: U/S THYROID/ST TIS HEAD NECK COMPLETED DATE/TIME: 01/21/2019 8:53 am REASON FOR STUDY: E04.2 NONTOXIC MULTINODULAR GOITER E04.2 NONTOXIC MULTINODULAR GOITER COMPARISON: None. TECHNIQUE: Dynamic and static fregoso-scale images acquired of the thyroid gland. Selected additional c olor/power Doppler images recorded. All images stored to PACS. LIMITATIONS: None. FINDINGS: RIGHT LOBE: The right lobe of the thyroid gland measures 5.6 x 1.9 by 3 cm. There is a so lid, isoechoic and wider than tall nodule with lobulated margins in the superior portion of the thyro id lobe that measures 2 x 1.1 x 2.1 cm. On Doppler the nodule contains internal flow. LEFT LOBE: The left lobe of thyroid gland measures 5.1 x 1.7 x 2.5 cm. The echotexture of the parenc hyma is homogeneous. There are no solid or cystic masses. ISTHMUS: The thyroid isthmus measures 1.3 cm in AP diameter. There is a solid, isoechoic and wider t davila tall nodule with smooth margins that measures 2.2 x 0.7 x 1.9 cm. On Doppler the nodule contains internal flow. OTHER: No other finding. IMPRESSION: 1. TR4 nodule in the superior portion of the right thyroid lobe that measures 2 x 1.1 x 2.1 cm. FNA of the nodule is recommended. 2. TR4 nodule in the isthmus of the thyroid gland that measures 2.2 x 0.7 x 1.9 cm. FNA of the nodu le is recommended. TECHNICAL DOCUMENTATION: JOB ID: [id number] [employer]- All Rights Reserved Reading location - IP/workstation name: [email or web address]
== END ==
LOC: WI 08:25
PROVIDERS: ATTEND Otolaryngology
DX: E04.2 Nontoxic multinodular goiter (principal)
CPT/HCPCS: 76536

== ENCOUNTER 2019-02-25 19:56 | Emergency (ER) | payer MEDICARE ==
--- NOTE | 2019-02-25 22:02 | RADIOLOGY REPORT (SQ) ---
EXAM DESCRIPTION: XR CHEST 2 VIEWS COMPLETED DATE/TME: 02/25/2019 00:00 CLINICAL HISTORY: 58 years, Female, cough; chest pain; rib pain COMPARISON: None. NUMBER OF VIEWS: 2 TECHNIQUE: 2 view chest LIMITATIONS: None. FINDINGS: Heart size normal. Lungs clear. Postsurgical change of the cervical spine. No pneumothorax IMPRESSION: No acute cardiopulmonary process copyright 2010 [email or web address]- All Rights Reserved
[2019-02-26] MEDS ORDERED: BENZONATATE 100 MG CAPSULE PO ONE (00:26)
--- NOTE | 2019-02-26 00:32 | ER Document Report ---
ED General - General Chief Complaint: Painful Cough Stated Complaint: RIB PAIN Time Seen by Provider: 02/26/19 00:15 Primary Care Provider: OSVALDO MONZON MD [Primary Care Provider] - Follow up as needed TRAVEL OUTSIDE OF THE [place] IN LAST 30 DAYS: No - HPI Notes: Patient is a 58-year-old female presents emergency department for evaluation of pain in the right side of her chest. She states is been coughing for about the last 2 weeks. Is been intermittently productive of a clear mucus, she denies any associated shortness of breath. She is had some nausea during coughing fits. She states she got some relief from Tessalon Perles. Over the last week she developed a sharp pain in the right inferior aspect of her chest with coughing. It does not hurt to take a deep breath. She denies any associated shortness of breath. She denies any injury to the area. She is had no cristiana fevers chills. She is had nausea as discussed but no emesis. Normal bowel movements. No other acute complaints or concerns. - Related Data Allergies/Adverse Reactions: sulfamethoxazole [From Bactrim] Allergy (Verified 02/25/19 20:58) trimethoprim [From Bactrim] Allergy (Verified 02/25/19 20:58) Home Medications: Tresiba. Lisinopril/HCTZ, 20 mg/12.5 mill grams daily Past Medical History - General Information source: Patient - Social History Smoking Status: Former Smoker Frequency of alcohol use: Occasional Drug Abuse: None Family History: Reviewed & Not Pertinent, Other - family members have uri Patient has suicidal ideation: No Patient has homicidal ideation: No - Past Medical History Cardiac Medical History: Reports: Hx Hypertension Pulmonary Medical History: Reports: Hx Asthma, Hx Bronchitis Endocrine Medical History: Reports: Hx Diabetes Mellitus Type 2 Renal/ Medical History: Denies: Hx Peritoneal Dialysis GI Medical History: Reports: Hx Irritable Bowel Psychiatric Medical History: Reports: Hx Depression Past Surgical History: Reports: Hx Abdominal Surgery - hiatal hernia repair, Hx Breast Surgery - benign cyst removed right, Hx Gynecologic Surgery - tubal, Hx Hysterectomy - partial, Hx Orthopedic Surgery - lumbar spine x 2, neck surg 06/13, Hx Umbilical Hernia, Hx Urinary Tract Surgery - bldder band - Immunizations Hx Diphtheria, Pertussis, Tetanus Vaccination: No Review of Systems - Review of Systems Constitutional: No symptoms reported EENT: No symptoms reported Cardiovascular: No symptoms reported Respiratory: See HPI Gastrointestinal: See HPI Genitourinary: No symptoms reported Musculoskeletal: See HPI Skin: No symptoms reported Neurological/Psychological: No symptoms reported Physical Exam - Vital signs Vitals: Temp Pulse Resp BP Pulse Ox 98.4 F 94 20 139/79 H 98 02/25/19 20:32 02/25/19 20:32 02/25/19 20:32 02/25/19 20:32 02/25/19 20:32 - Notes Notes: Vital signs reviewed, please refer to chart. Head is normocephalic, atraumatic. Pupils equal round, reactive to light. Neck is supple without meningismus. Heart is regular rate and rhythm. Lungs are clear to auscultation bilaterally. Examination of the chest vitals no obvious abnormality. She is tender to palpation over the ninth and 10th ribs on the right, laterally, most focally just anterior to the mid axillary line. Abdomen is soft, nontender, normoactive bowel sounds throughout. Extremities without cyanosis, clubbing. Posterior calves are nontender. Peripheral pulses are equal. Skin is warm and dry. Patient is awake, alert, neurological exam is nonfocal. Course - Re-evaluation Re-evalutation: 02/26/19 00:30 Patient presents emergency department for evaluation. She had chest x-ray ordered through triage which is found to be unremarkable. I suspect she simply has a cough with some chest wall pain associated with it. She has absolutely no risk factors for blood clots. No family history of blood clots, no history of cancer, no recent surgeries, no prolonged immobilization. I will send her home with prescription strength anti-inflammatory and Tessalon Perles. She is to follow-up with primary care, return to the ED with worsening new concerning symptoms of any sort. - Vital Signs Vital signs: Temp Pulse Resp BP Pulse Ox 98.4 F 94 16 135/77 H 96 02/25/19 20:32 02/25/19 20:32 02/26/19 00:00 02/25/19 23:01 02/26/19 00:00 - EKG Interpretation by Me Additional EKG results interpreted by me: 02/26/19 00:35 Sinus tachycardia with a rate of 101 bpm. Left axis deviation. Normal intervals. Nonspecific ST changes, but no acute changes concerning for ischemia or infarction. Discharge - Discharge Clinical Impression: Chest wall pain, Cough Condition: Stable Disposition: HOME, SELF-CARE Instructions: Chest Wall Pain ([facility]) Additional Instructions: Your x-ray was found to be normal, you are oxygenating well. It is likely that the pain you are experiencing is simply from your chest wall. Please take medications as prescribed, preferably with food. Tessalon Perles as needed for cough. Follow-up with your primary care physician this week. Return to the ED with worsening or new concerning symptoms of any sort. Prescriptions: Benzonatate [Tessalon Perle 100 mg Capsule] 100 mg PO Q8HP PRN #40 cap PRN Reason: Naproxen [Naprosyn] 500 mg PO BID #14 tablet Referrals: OSVALDO MONZON MD [Primary Care Provider] - Follow up as needed
[2019-02-26 00:58] VITALS: BP 125/81
--- NOTE | 2019-02-26 12:39 | EKG REPORT ---
SEVERITY:- ABNORMAL ECG - SINUS TACHYCARDIA CONSIDER LEFT VENTRICULAR HYPERTROPHY ANTERIOR Q WAVES, POSSIBLY DUE TO LVH : Confirmed by: Simone Parmar 26-Feb-2019 12:37:50
== END 2019-02-26 00:59 | disposition home or self-care (01) ==
LOC: ER 19:56
DX: R05 Cough (principal); R07.89 Other chest pain; R11.0 Nausea; R00.0 Tachycardia, unspecified; J45.909 Unspecified asthma, uncomplicated; E11.9 Type 2 diabetes mellitus without complications; I10 Essential (primary) hypertension; Z79.899 Other long term (current) drug therapy; Z79.4 Long term (current) use of insulin; Z87.891 Personal history of nicotine dependence; Z88.1 Allergy status to other antibiotic agents
CPT/HCPCS: 93005; 99285; 71046; 93010; A9270

== ENCOUNTER → 2019-04-12 | Outpatient (CLI) | payer MEDICARE, MEDICAID ==
[~2019-04-12] MED LIST: REGADENOSON INJ 0.4 MG/5 ML DISP.SYRIN IV ONE
--- NOTE | 2019-04-12 19:27 | DRAGON STRESS TEST REPORT ---
Intravenous Lexiscan Cardiolite stress test using single photon emmision computerized tomography. Date of procedure: 04/12/2019 Ordering Provider: Dr. Guy. Patient's status Out Patient. Indication: Abnormal EKG and preoperative cardiac risk assessment.. Coronary risk factors: Age, diabetes mellitus, and hypertension. Resting EKG: Sinus Rhythm. Poor R wave leads V1 to V6. Stress EKG: No changes of ischemia. The patient had no chest pain or discomfort, and there were no arrhythmias seen. She had no shortness of breath. Reason for termination: Protocol. Conclusions: Normal EKG and hemodynamic response to IV Lexiscan. Nuclear data: At rest the patient was given 14.51 millicuries of technetium 99m sestamibi injected intravenously. As per protocol rest non gated SPECT images were obtained. Subsequently the patient was given intravenous Lexiscan at a dose of 0.4 mg in 5 mL intravenously, followed by flush with normal saline. Subsequently the stress dose of 42.3 millicuries of technetium 99m sestamibi was injected intravenously. As per protocol stress gated images were obtained. Nuclear interpretation: Review of images showed that all segments of the myocardium had normal perfusion at rest, and normal perfusion post stress with IV Lexiscan. All segments of the myocardium had normal motion, contraction, and thickening by gated study. T. I D. ratio was normal at 0.91. There is no transient ischemic dilatation of the left ventricle. Computer read rest, and stress left ventricular ejection fraction were 70 %, and 75 %, respectively. Conclusion: 1. There is no scintigraphic evidence of Lexiscan induced myocardial ischemia. 2. There is no scintigraphic evidence of myocardial infarction/scar. Recommendations: Aggressive risk factor modification, and treating the underlying co- morbidities. [facility]
== END ==
LOC: RAD 06:37
PROVIDERS: ATTEND Internal Medicine
DX: E11.42 Type 2 diabetes mellitus with diabetic polyneuropathy (principal)
CPT/HCPCS: 93017; 78452; A9500; J2785; Q9969